=== PATIENT | female | born 2000 | race Caucasian/White ===

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

== ENCOUNTER → 2018-02-19 | Outpatient (REF) | payer OTHER ==
[2018-02-19 23:03] LABS: CHLAMYDIA DNA AMPLIFICATION NEGATIVE (NEGATIVE); GC DNA AMPLIFICATION NEGATIVE (NEGATIVE)
== END ==
LOC: M SFHCLERA 16:38
DX: R30.0 Dysuria (principal); N89.8 Other specified noninflammatory disorders of vagina

== ENCOUNTER → 2018-06-25 | Outpatient (REF) | payer OTHER | LOC: M SFHCLERA 14:57 | PROVIDERS: ATTEND Nurse Practitioner Family | DX: R30.0 Dysuria (principal) ==

== ENCOUNTER → 2018-07-28 | Outpatient (REF) | payer OTHER, SELFPAY ==
[~2018-07-28] MED LIST: BUPR150T5; FLUC150T; METH0.2T53 PO; NAPR-885 PO; PRENTAB55 PO
== END ==
LOC: M SFHCLERA 11:55
PROVIDERS: ATTEND Physician Assistant
DX: N39.0 Urinary tract infection, site not specified (principal)

== ENCOUNTER 2018-08-22 15:12 | Emergency (ER) | payer OTHER, SELFPAY ==
[~2018-08-22] VITALS: Ht 165.1 cm; Wt 95.5 kg
[2018-08-22] MEDS ORDERED: PRENTAB55 PO (15:21)
[2018-08-22 16:18] LABS: BASO # 0.1 10^3/uL (0.0-0.2); BASO % 1.1 % (0.0-1.0); EOS # 0.3 10^3/uL (0.0-0.50); EOS % 4.8 % (0.0-3.0); HEMATOCRIT 37.1 % (36.0-47.0); HEMOGLOBIN 12.5 g/dl (12.0-15.5); LYMPH # 1.4 10^3/uL (1.5-6.5); LYMPH % 25.6 % (24.0-44.0); MEAN CORPUSCULAR HEMOGLOBIN 29.9 pg (27.0-33.0); MEAN CORPUSCULAR HGB CONC 33.7 g/dl (32.0-36.5); MEAN CORPUSCULAR VOLUME 88.8 fl (80.0-96.0); MONO # 0.5 10^3/uL (0.0-0.8); MONO % 9.2 % (0.0-5.0); NEUTROPHILS # 3.2 10^3/uL (1.8-7.7); NEUTROPHILS % 59.1 % (36.0-66.0); PLATELET COUNT, AUTOMATED 272 10^3/uL (150-450); RED BLOOD COUNT 4.18 10^6/uL (4.00-5.40); WHITE BLOOD COUNT 5.4 10^3/uL (4.0-10.0)
[2018-08-22 16:39] LABS: BLOOD UREA NITROGEN 7 MG/DL (7-18); CALCIUM LEVEL 8.9 MG/DL (8.5-10.1); CARBON DIOXIDE LEVEL 25 MEQ/L (21-32); CHLORIDE LEVEL 110 MEQ/L (98-107); CREATININE FOR GFR 0.77 MG/DL (0.55-1.30); GLUCOSE, FASTING 81 MG/DL (70-100); POTASSIUM SERUM 3.9 MEQ/L (3.5-5.1); SODIUM LEVEL 141 MEQ/L (136-145)
[2018-08-22 16:53] LABS: HCG, SERUM QUALITATIVE POSITIVE (NEGATIVE)
[2018-08-22] MEDS ORDERED: ONDANSETRON 4 MG ORAL DISINTEGRATING TAB (Q0162 PER 1MG) PO ONE (17:15)
[2018-08-22 17:53] LABS: HCG, SERUM QUANTITATIVE 10677 MIU/ML
--- NOTE | 2018-08-22 18:25 | REP ---
PELVIC ULTRASOUND: Real-time sonographic evaluation of the pelvis was performed utilizing transabdominal and endovaginal technique. Intrauterine gestational sac contains a fetus with a crown-rump length of 16 mm. This would correspond to an estimated gestational age 8 weeks. However no heart motion is detected. Findings are consistent with intrauterine demise. No subchronic hemorrhage is seen. No maternal adnexal region abnormality is seen. Right ovary demonstrates no torsion. Left ovary is not visualized. Electronically Signed by Ismael Borrero MD 08/22/2018 07:46 P
[2018-08-22 18:47] VITALS: BP 133/63
== END 2018-08-22 18:50 | disposition home or self-care (01) ==
LOC: M ED 15:12
DX: O03.4 Incomplete spontaneous abortion without complication (principal)
CPT/HCPCS: 36415; 76801; 76817; 80048; 81001; 84702; 84703; 85025; 86850; 86900; 86901; 93976; 99284; Q0162

== ENCOUNTER 2018-09-03 23:12 | Emergency (ER) | payer OTHER ==
[~2018-09-03] VITALS: Ht 167.6 cm; Wt 93.6 kg
[~2018-09-03 23:12] MED LIST changes: -BUPR150T5; -FLUC150T; -METH0.2T53 PO; -NAPR-885 PO
[2018-09-03] MEDS ORDERED: FLUC150T (23:17)
[2018-09-03] MEDS ORDERED: NAPR-885 PO (23:17)
[2018-09-04] MEDS ORDERED: KETOROLAC 30 MG/ML VIAL (J1885) IV ONE (00:45)
[2018-09-04] MEDS ORDERED: NS 500 ML IV ONE (00:45)
[2018-09-04 01:52] LABS: BLOOD UREA NITROGEN 11 MG/DL (7-18); CALCIUM LEVEL 8.9 MG/DL (8.5-10.1); CARBON DIOXIDE LEVEL 22 MEQ/L (21-32); CHLORIDE LEVEL 111 MEQ/L (98-107); CREATININE FOR GFR 0.72 MG/DL (0.55-1.30); GLUCOSE, FASTING 90 MG/DL (70-100); HCG, SERUM QUANTITATIVE 1773 MIU/ML; POTASSIUM SERUM 4.1 MEQ/L (3.5-5.1); SODIUM LEVEL 142 MEQ/L (136-145)
[2018-09-04 02:01] LABS: BASO # 0.1 10^3/uL (0.0-0.2); BASO % 0.6 % (0.0-1.0); EOS # 0.4 10^3/uL (0.0-0.50); EOS % 2.9 % (0.0-3.0); HEMATOCRIT 36.1 % (36.0-47.0); HEMOGLOBIN 11.9 g/dl (12.0-15.5); LYMPH % 16.1 % (24.0-44.0); MEAN CORPUSCULAR HEMOGLOBIN 29.2 pg (27.0-33.0); MEAN CORPUSCULAR VOLUME 88.5 fl (80.0-96.0); NEUTROPHILS # 9.1 10^3/uL (1.8-7.7); NEUTROPHILS % 72.2 % (36.0-66.0); PLATELET COUNT, AUTOMATED 315 10^3/uL (150-450); RED BLOOD COUNT 4.08 10^6/uL (4.00-5.40); WHITE BLOOD COUNT 12.6 10^3/uL (4.0-10.0)
--- NOTE | 2018-09-04 03:09 | REPVR ---
EXAM: US First Trimester, Transabdominal EXAM DATE/TIME: 09/04/2018 1:20 AM CLINICAL HISTORY: 18 years old, female; Signs and symptoms; Lmp or gestational age (in weeks): Lmp12; Antepartum complications; Bleeding; ; Patient HX: Confirmed demise 08/22/18, heavy bleeding and cramping began tonight, scheduled for d&c 09/07/18; Additional info: S/P sp ab/bleeding/pain TECHNIQUE: Real-time transabdominal obstetrical ultrasound of the maternal pelvis and a first trimester , less than 14 weeks 0 days, with image documentation. Patient refused transvaginal exam. COMPARISON: No relevant prior studies available. FINDINGS: GESTATION: Gestation: No normal intrauterine gestation sac seen. Amniotic fluid: Sought but not present. MATERNAL: Uterus: Uterus measures 9.4 x 5.4 x 6.8 cm. Endometrial stripe measures 2.1 cm in thickness. Endometrium is heterogeneous and thickened. Cervix: Unremarkable. Right adnexa: Right ovary measures 3.4 x 2.6 x 3.4 cm. Unremarkable. Left adnexa: Left ovary measures 3.4 x 1.7 x 2.3 cm. Unremarkable. Intraperitoneal: No intraperitoneal free fluid. IMPRESSION: No normal intrauterine gestation sac seen. Endometrium is heterogeneous and thickening. Clot versus retained products of conception. Electronically signed by: Marilyn Onofre On 09/04/2018 03:09:08 AM
[2018-09-04 05:06] VITALS: BP 190/59
--- NOTE | 2018-09-05 15:46 | ED PDOC ---
Post-Departure Follow-Up womens geoff eisenberg faxed formal report of 1st trimester us for fu Irasema Ortiz MD Sep 05, 2018 15:45
== END 2018-09-04 05:11 | disposition home or self-care (01) ==
LOC: M ED 23:12
DX: O03.4 Incomplete spontaneous abortion without complication (principal); E66.9 Obesity, unspecified
CPT/HCPCS: 76801; 80048; 81001; 84702; 85025; 86850; 86900; 86901; 93976; 96374; 99284; J1885

== ENCOUNTER 2018-10-01 18:36 | Emergency (ER) | payer OTHER ==
[~2018-10-01] VITALS: Ht 167.6 cm; Wt 84.5 kg
[~2018-10-01 18:36] MED LIST changes: +FLUC150T; +NAPR-885 PO
[2018-10-01] MEDS ORDERED: BUPR150T5 (18:45)
[2018-10-01 20:15] LABS: BASO # 0.1 10^3/uL (0.0-0.2); BASO % 1.2 % (0.0-1.0); EOS # 0.3 10^3/uL (0.0-0.50); EOS % 6.6 % (0.0-3.0); HEMATOCRIT 39.2 % (36.0-47.0); HEMOGLOBIN 12.7 g/dl (12.0-15.5); LYMPH # 1.3 10^3/uL (1.5-6.5); MEAN CORPUSCULAR HEMOGLOBIN 29.1 pg (27.0-33.0); MEAN CORPUSCULAR HGB CONC 32.4 g/dl (32.0-36.5); MEAN CORPUSCULAR VOLUME 89.7 fl (80.0-96.0); MONO # 0.5 10^3/uL (0.0-0.8); MONO % 10.2 % (0.0-5.0); NEUTROPHILS # 2.6 10^3/uL (1.8-7.7); NEUTROPHILS % 54.8 % (36.0-66.0); PLATELET COUNT, AUTOMATED 277 10^3/uL (150-450); RED BLOOD COUNT 4.37 10^6/uL (4.00-5.40); WHITE BLOOD COUNT 4.8 10^3/uL (4.0-10.0)
[2018-10-01 20:40] LABS: BLOOD UREA NITROGEN 9 MG/DL (7-18); CALCIUM LEVEL 9.1 MG/DL (8.5-10.1); CARBON DIOXIDE LEVEL 27 MEQ/L (21-32); CHLORIDE LEVEL 108 MEQ/L (98-107); CREATININE FOR GFR 0.87 MG/DL (0.55-1.30); GLUCOSE, FASTING 50 MG/DL (70-100); SODIUM LEVEL 140 MEQ/L (136-145)
[2018-10-01 20:55] LABS: HCG, SERUM QUALITATIVE POSITIVE (NEGATIVE)
[2018-10-01 22:02] LABS: HCG, SERUM QUANTITATIVE 15 MIU/ML
[2018-10-01] MEDS ORDERED: LIDOCAINE 1% MDV 20ML VIAL IM ONE (23:45)
[2018-10-02 01:32] LABS: CHLAMYDIA DNA AMPLIFICATION NEGATIVE (NEGATIVE); GC DNA AMPLIFICATION NEGATIVE (NEGATIVE)
--- NOTE | 2018-10-02 01:57 | REPVR ---
EXAM: US Pelvis Complete, Transabdominal EXAM DATE/TIME: 10/02/2018 12:22 AM CLINICAL HISTORY: 18 years old, female; Signs and symptoms; Menstruation abnormalities; Excessive menstruation; Other: S/P d&c continued bleeding; Prior surgery; Surgery date: <1 month; Additional info: Vaginal bleeding S/P d+c TECHNIQUE: Imaging protocol: Real-time transabdominal pelvic ultrasound with image documentation. Complete exam. COMPARISON: 1ST TRIMESTER US 09/04/2018 12:53 AM FINDINGS: Uterus/cervix: Heterogeneous endometrium measuring 16 mm. Heterogeneous endometrium measuring 16 mm. Hypervascularity in the endometrium at the fundus of the uterus likely representing retained products of conception. Right adnexa: Right ovary is unremarkable measuring 3.5 x 3.0 x 2.3 cm. Left adnexa: Left ovary is unremarkable measuring 4.7 x 3.4 x 2.9 cm. Free fluid: None. Bladder: Urinary bladder is unremarkable measuring 3.5 x 3.1 x 6.8 cm. IMPRESSION: Heterogeneous endometrium measuring 16 mm. Hypervascularity in the endometrium at the fundus of the uterus likely representing retained products of conception. Electronically signed by: Diana Wyman On 10/02/2018 01:57:09 AM
[2018-10-02] MEDS ORDERED: METH0.2T53 PO (02:16)
[2018-10-02 02:22] VITALS: BP 118/60
== END 2018-10-02 02:21 | disposition home or self-care (01) ==
LOC: M ED 18:36
DX: O03.4 Incomplete spontaneous abortion without complication (principal); F32.9 Major depressive disorder, single episode, unspecified; Z79.899 Other long term (current) drug therapy

== ENCOUNTER 2018-10-16 22:00 | Emergency (ER) | payer OTHER ==
[~2018-10-16] VITALS: Ht 165.1 cm; Wt 84.5 kg
[~2018-10-16 22:00] MED LIST changes: +BUPR150T5; +METH0.2T53 PO
[2018-10-16 22:50] LABS: BASO # 0.1 10^3/uL (0.0-0.2); BASO % 0.9 % (0.0-1.0); EOS # 0.4 10^3/uL (0.0-0.50); EOS % 6.4 % (0.0-3.0); HEMATOCRIT 37.6 % (36.0-47.0); HEMOGLOBIN 12.4 g/dl (12.0-15.5); LYMPH # 1.7 10^3/uL (1.5-6.5); LYMPH % 29.1 % (24.0-44.0); MEAN CORPUSCULAR HEMOGLOBIN 29.4 pg (27.0-33.0); MEAN CORPUSCULAR VOLUME 89.1 fl (80.0-96.0); MONO # 0.5 10^3/uL (0.0-0.8); MONO % 7.8 % (0.0-5.0); NEUTROPHILS # 3.2 10^3/uL (1.8-7.7); NEUTROPHILS % 55.5 % (36.0-66.0); PLATELET COUNT, AUTOMATED 281 10^3/uL (150-450); RED BLOOD COUNT 4.22 10^6/uL (4.00-5.40); WHITE BLOOD COUNT 5.7 10^3/uL (4.0-10.0)
[2018-10-16 23:10] LABS: ALBUMIN 3.8 GM/DL (3.2-5.2); ALT/SGPT 14 U/L (12-78); BILIRUBIN,DIRECT < 0.1 MG/DL (0.0-0.2); BILIRUBIN,TOTAL 0.1 MG/DL (0.2-1.0); BLOOD UREA NITROGEN 7 MG/DL (7-18); CALCIUM LEVEL 8.6 MG/DL (8.5-10.1); CARBON DIOXIDE LEVEL 30 MEQ/L (21-32); CHLORIDE LEVEL 107 MEQ/L (98-107); CREATININE FOR GFR 0.86 MG/DL (0.55-1.30); GLUCOSE, FASTING 92 MG/DL (70-100); HCG, SERUM QUANTITATIVE 4 MIU/ML; POTASSIUM SERUM 4.1 MEQ/L (3.5-5.1); SODIUM LEVEL 141 MEQ/L (136-145); TOTAL PROTEIN 7.3 GM/DL (6.4-8.2)
--- NOTE | 2018-10-17 01:26 | REPVR ---
EXAM: US Pelvis Complete, Transabdominal EXAM DATE/TIME: 10/16/2018 11:41 PM CLINICAL HISTORY: 18 years old, female; Signs and symptoms; Menstruation abnormalities; Excessive menstruation; Other: S/P miscarriage/ d&c; Prior surgery; Surgery date: 1-6 months; Additional info: Continued bleeding p d TECHNIQUE: Imaging protocol: Real-time transabdominal pelvic ultrasound with image documentation. Complete exam. COMPARISON: US PELVIC NON-OB COMPLETE 10/01/2018 11:59 PM FINDINGS: Uterus/cervix: Uterus measures 9.0 x 3.7 x 4.8 cm. Endometrial stripe measures 8.5 mm. Ill-defined endometrium with increased flow in the fundus measuring 1.3 x 1.4 x 1.5 cm may represent retained products of conception. Right adnexa: Right ovary is unremarkable measuring 4.0 x 2.8 x 2.3 cm. Left adnexa: Left ovary is unremarkable measuring 4.5 x 3.4 x 3.2 cm. Free fluid: None. Bladder: Urinary bladder is unremarkable impression 1.6 x 1.2 x 3.3 cm. IMPRESSION: Ill-defined endometrium with increased flow in the fundus measuring 1.3 x 1.4 x 1.5 cm may represent retained products of conception. Electronically signed by: Diana Wyman On 10/17/2018 01:25:50 AM
[2018-10-17 01:58] VITALS: BP 115/76
--- NOTE | 2018-10-18 13:11 | ED PDOC ---
Post-Departure Follow-Up dr almanzar faxed formal report of pelvic us for fu Irasema Ortiz MD Oct 18, 2018 13:11
== END 2018-10-17 02:00 | disposition home or self-care (01) ==
LOC: M ED 22:00
DX: O02.1 Missed abortion (principal); F33.9 Major depressive disorder, recurrent, unspecified; Z79.899 Other long term (current) drug therapy

== ENCOUNTER 2018-12-02 22:12 | Emergency (ER) | payer OTHER ==
[~2018-12-02] VITALS: Ht 165.1 cm; Wt 84.5 kg
[2018-12-02] MEDS ORDERED: ACETAMINOPHEN 325 MG TAB PO ONE (23:30)
[2018-12-02 23:34] LABS: BASO # 0.1 10^3/uL (0.0-0.2); BASO % 0.8 % (0.0-1.0); EOS # 0.3 10^3/uL (0.0-0.50); EOS % 4.3 % (0.0-3.0); HEMATOCRIT 36.7 % (36.0-47.0); HEMOGLOBIN 12.1 g/dl (12.0-15.5); LYMPH # 2.2 10^3/uL (1.5-6.5); LYMPH % 28.1 % (24.0-44.0); MEAN CORPUSCULAR HEMOGLOBIN 29.7 pg (27.0-33.0); MONO # 0.8 10^3/uL (0.0-0.8); MONO % 9.5 % (0.0-5.0); NEUTROPHILS # 4.5 10^3/uL (1.8-7.7); PLATELET COUNT, AUTOMATED 244 10^3/uL (150-450); RED BLOOD COUNT 4.08 10^6/uL (4.00-5.40); WHITE BLOOD COUNT 7.9 10^3/uL (4.0-10.0)
[2018-12-02 23:42] LABS: BLOOD UREA NITROGEN 8 MG/DL (7-18); CALCIUM LEVEL 8.3 MG/DL (8.5-10.1); CARBON DIOXIDE LEVEL 27 MEQ/L (21-32); CHLORIDE LEVEL 109 MEQ/L (98-107); CREATININE FOR GFR 0.76 MG/DL (0.55-1.30); GLUCOSE, FASTING 79 MG/DL (70-100); SODIUM LEVEL 144 MEQ/L (136-145)
[2018-12-03] MEDS ORDERED: CLOTCRE3 TOP (00:56)
[2018-12-03] MEDS ORDERED: CLOTRIMAZOLE 1% VAG CR 45 GM TOP STA (00:58)
[2018-12-03 01:00] VITALS: BP 129/62
--- NOTE | 2018-12-03 01:33 | REPVR ---
EXAM: US First Trimester, Transabdominal EXAM DATE/TIME: 12/02/2018 12:04 AM CLINICAL HISTORY: 18 years old, female; Pain and signs and symptoms; Antepartum complications; Bleeding; complicated by abdominal or pelvic pain; Lower; First trimester; Gestational age or lmp: ? Hcg 128; ; Prior surgery; Surgery date: 1-6 months; Surgery type: D&c; Patient HX: Miscarriage in August; Additional info: +hcg, cramping, bleeding TECHNIQUE: Imaging protocol: Real-time transabdominal obstetrical ultrasound of the maternal pelvis and a first trimester , less than 14 weeks 0 days, with image documentation. COMPARISON: No relevant prior studies available. FINDINGS: GESTATION: Gestation: No intrauterine gestational sac. MATERNAL: Uterus: The uterus measures 9.5 cm in its cephalocaudad dimension and 4.6 x 6.3 cm in its AP and lateral dimensions. The endometrium measures 18 mm. No intrauterine gestational sac is seen. Cervix: Unremarkable. Right adnexa: The right ovary measures 4.4 x 4.0 x 3.1 cm and demonstrates a simple appearing cyst measuring 2.3 x 2.3 x 1.5 cm. There is right ovarian blood flow. Left adnexa: The left ovary measures 3.2 x 2.6 x 2.2 cm and demonstrates normal blood flow. Intraperitoneal: No intraperitoneal free fluid. IMPRESSION: 1. Thickened endometrium measuring 18 mm. No intrauterine gestational sac is seen. Findings may reflect recent spontaneous AB or possibly early intrauterine gestation. Ectopic with decidual reaction is not excluded. Serial beta hCG levels may be of benefit for further evaluation. 2. Right ovarian cyst measuring 2.3 x 2.3 x 1.5 cm. Electronically signed by: Mitul Wilcox On 12/03/2018 01:33:05 AM
--- NOTE | 2018-12-04 10:38 | ED PDOC ---
Post-Departure Follow-Up certified letter sent to pt regarding formal reading of pelvic us. This pt must have an ob-space operations officer. not documented. please obtain name and fax report to job lithographer Irasema Ortiz MD Dec 04, 2018 10:38
== END 2018-12-03 01:05 | disposition home or self-care (01) ==
LOC: M ED 22:12
DX: O23.599 Infection of other part of genital tract in pregnancy, unspecified trimester (principal); Z3A.00 Weeks of gestation of pregnancy not specified; O34.80 Maternal care for other abnormalities of pelvic organs, unspecified trimester

== ENCOUNTER → 2018-12-04 | Outpatient (REF) | payer OTHER ==
[~2018-12-04] MED LIST changes: +CLOTCRE3 TOP
[2018-12-04 17:59] LABS: BASO # 0.1 10^3/uL (0.0-0.2); BASO % 1.2 % (0.0-1.0); EOS # 0.3 10^3/uL (0.0-0.50); EOS % 4.8 % (0.0-3.0); HCG, SERUM QUANTITATIVE 336 MIU/ML; HEMATOCRIT 40.2 % (36.0-47.0); HEMOGLOBIN 13.1 g/dl (12.0-15.5); LYMPH # 1.6 10^3/uL (1.5-6.5); LYMPH % 26.9 % (24.0-44.0); MEAN CORPUSCULAR HEMOGLOBIN 28.8 pg (27.0-33.0); MEAN CORPUSCULAR HGB CONC 32.6 g/dl (32.0-36.5); MEAN CORPUSCULAR VOLUME 88.4 fl (80.0-96.0); MONO # 0.6 10^3/uL (0.0-0.8); MONO % 10.7 % (0.0-5.0); NEUTROPHILS # 3.3 10^3/uL (1.8-7.7); NEUTROPHILS % 56.2 % (36.0-66.0); PLATELET COUNT, AUTOMATED 284 10^3/uL (150-450); RED BLOOD COUNT 4.55 10^6/uL (4.00-5.40); WHITE BLOOD COUNT 5.8 10^3/uL (4.0-10.0)
[2018-12-05 10:53] LABS: RUBELLA IgG QUALITATIVE IMMUNE (IMMUNE)
[2018-12-05 11:22] LABS: HEPATITIS C VIRUS ABY INDEX < 0.0 INDEX (<0.8); HIV 1&2 SCREEN CENTAUR NEGATIVE (NEGATIVE)
== END ==
LOC: M LAB REF 16:45
PROVIDERS: ATTEND Obstetrics & Gynecology
DX: O36.80X0 Pregnancy with inconclusive fetal viability, not applicable or unspecified (principal); Z32.01 Encounter for pregnancy test, result positive

== ENCOUNTER → 2018-12-14 | Outpatient (REF) | payer OTHER | LOC: M LAB REF 15:54 | PROVIDERS: ATTEND Obstetrics & Gynecology | DX: O02.81 Inappropriate change in quantitative human chorionic gonadotropin (hCG) in early pregnancy (principal) ==

== ENCOUNTER → 2019-01-08 | Outpatient (REF) | payer OTHER ==
[~2019-01-08] MED LIST changes: +PRENTAB9 PO
== END ==
LOC: M LAB REF 16:52
PROVIDERS: ATTEND Obstetrics & Gynecology
DX: Z34.01 Encounter for supervision of normal first pregnancy, first trimester (principal)

== ENCOUNTER → 2019-02-06 | Outpatient (REF) | payer OTHER | LOC: M LAB REF 17:00 | PROVIDERS: ATTEND Obstetrics & Gynecology | DX: R30.0 Dysuria (principal) ==

== ENCOUNTER → 2019-04-11 | Outpatient (REF) | payer OTHER ==
[~2019-04-11] MED LIST changes: -PRENTAB9 PO
[2019-04-11 22:04] LABS: CHLAMYDIA DNA AMPLIFICATION NEGATIVE (NEGATIVE); GC DNA AMPLIFICATION NEGATIVE (NEGATIVE)
== END ==
LOC: M SFHCLERA 15:46
PROVIDERS: ATTEND Nurse Practitioner Family
DX: J02.9 Acute pharyngitis, unspecified (principal)

== ENCOUNTER 2019-04-26 21:30 | Outpatient (CLI) | payer OTHER ==
[~2019-04-26] VITALS: Ht 167.6 cm; Wt 97.2 kg
[2019-04-26] MEDS ORDERED: PRENTAB9 PO (22:05)
--- NOTE | 2019-04-26 23:00 | IPNPDOC ---
Text Note Date of Service The patient was seen on 04/26/19. NOTE Outpatient 18 yo ADDISON 08/12/2019. Pt of [facility]. Presents @ 24w2d with complaints of falling downstairs yesterday afternoon. Denies LOF or bleeding. Reports appropriate movement. Abdomen soft, nontender Reassuring status for gestation Sono shows adequate fluid DONTRELL 13.0 without evidence previa or abruption. Discharged home. Reivewed with pt need to contact provider with future falls or concerns. Keep next appt VS,Fishbone, I+O VS, Fishbone, I+O Vital Signs Date Time Temp Pulse Resp B/P (MAP) Pulse Ox O2 Delivery O2 Flow Rate FiO2 04/26/19 21:56 98.5 Carmina Cota CNM Apr 26, 2019 23:00
--- NOTE | 2019-04-26 23:13 | REPVR ---
PROCEDURE INFORMATION: Exam: US , Limited Exam date and time: 04/26/2019 10:49 PM Clinical history: 18 years old, female; Injury or trauma; Fall; Late effect from previous injury; Blunt trauma; Other: Buttocks; ; Additional info: Fall downstairs, 24 wks TECHNIQUE: Imaging protocol: Real-time ultrasound of the maternal uterus with image documentation. Exam focused on the clinical indication. COMPARISON: US PELVIC NON-OB COMPLETE 10/16/2018 11:19 PM FINDINGS: GESTATION: Gestation: Single intrauterine gestation. Biometric measurements not obtained and structural survey not performed. Heart rate: heart rate 162 beats per minute. Placenta: Postero-fundal placenta. Amniotic fluid: Normal amniotic fluid volume DONTRELL 13 cm. MATERNAL: Cervix: Cervix measures 4 cm without funneling or bulging membranes. IMPRESSION: Single intrauterine gestation as described above. Normal amniotic fluid volume. Normal appearance of the cervix. Electronically signed by: Aron Jones On 04/26/2019 23:12:46 PM
== END 2019-04-26 23:10 | disposition home or self-care (01) ==
LOC: M LDO 21:30
PROVIDERS: ATTEND Advanced Practice Midwife
DX: O99.89 Other specified diseases and conditions complicating pregnancy, childbirth and the puerperium (principal); Z3A.24 24 weeks gestation of pregnancy; W10.9XXA Fall (on) (from) unspecified stairs and steps, initial encounter; Y92.9 Unspecified place or not applicable
CPT/HCPCS: 76815; G0378; G0463

== ENCOUNTER → 2019-05-16 | Outpatient (CLI) | payer OTHER ==
[~2019-05-16] MED LIST changes: +PRENTAB9 PO
[2019-05-16 10:51] LABS: HEMATOCRIT 34.5 % (36.0-47.0); HEMOGLOBIN 11.1 g/dl (12.0-15.5); MEAN CORPUSCULAR HEMOGLOBIN 30.4 pg (27.0-33.0); MEAN CORPUSCULAR HGB CONC 32.2 g/dl (32.0-36.5); MEAN CORPUSCULAR VOLUME 94.5 fl (80.0-96.0); PLATELET COUNT, AUTOMATED 293 10^3/uL (150-450); RED BLOOD COUNT 3.65 10^6/uL (4.00-5.40); WHITE BLOOD COUNT 10.9 10^3/uL (4.0-10.0)
== END ==
LOC: M LAB 09:21
PROVIDERS: ATTEND Obstetrics & Gynecology
DX: Z34.82 Encounter for supervision of other normal pregnancy, second trimester (principal)

== ENCOUNTER → 2019-07-11 | Outpatient (REF) | payer OTHER | LOC: M LAB REF 12:30 | PROVIDERS: ATTEND Obstetrics & Gynecology | DX: Z36.85 Encounter for antenatal screening for Streptococcus B (principal) ==

== ENCOUNTER 2019-08-02 06:01 | Outpatient (CLI) | payer OTHER ==
[~2019-08-02] VITALS: Ht 167.6 cm; Wt 110.6 kg
[2019-08-02 06:20] VITALS: BP 126/67
[2019-08-02 07:48] VITALS: BP 129/60
[2019-08-02 09:06] VITALS: BP 107/58
== END 2019-08-02 09:45 | disposition home or self-care (01) ==
LOC: M LDO 06:01
PROVIDERS: ATTEND Obstetrics & Gynecology
DX: O47.1 False labor at or after 37 completed weeks of gestation (principal); Z3A.38 38 weeks gestation of pregnancy
CPT/HCPCS: 59025; G0378; G0463

== ENCOUNTER 2019-08-07 20:49 | Inpatient (IN) | payer OTHER ==
[~2019-08-07] VITALS: Ht 167.6 cm; Wt 112.5 kg
[2019-08-07 21:10] VITALS: BP 136/72
[2019-08-07] MEDS ORDERED: LACTATED RINGER'S 1000 ML IV STA (21:41)
[2019-08-07 21:48] VITALS: BP 129/68
[2019-08-07 23:25] LABS: HEMATOCRIT 34.3 % (36.0-47.0); HEMOGLOBIN 10.8 g/dl (12.0-15.5); MEAN CORPUSCULAR HGB CONC 31.5 g/dl (32.0-36.5); MEAN CORPUSCULAR VOLUME 88.9 fl (80.0-96.0); PLATELET COUNT, AUTOMATED 330 10^3/uL (150-450); RED BLOOD COUNT 3.86 10^6/uL (4.00-5.40); WHITE BLOOD COUNT 11.2 10^3/uL (4.0-10.0)
[2019-08-07 23:37] VITALS: BP 131/81
[2019-08-08] VITALS (24 sets, daily range): BP systolic 117–174; BP diastolic 55–123
[2019-08-08] MEDS: LR 1,000 ML IV SCH ×4 (07:32→21:41)
[2019-08-08] MEDS ORDERED: miSOPROStol 50 MCG 1/2 TAB (S0191) PO ONE (08:00)
[2019-08-08] MEDS ORDERED: AMPICILLIN SOD 2 GM in D5W MINI-BAG PLUS 100 ML IV ONE (08:00)
[2019-08-08] MEDS: AMPICILLIN SOD 1 GM in D5W 50 ML IV SCH ×3 (11:58→20:21)
[2019-08-08] MEDS: miSOPROStol 50 MCG 1/2 TAB (S0191) PO SCH ×2 (13:00→17:25)
--- NOTE | 2019-08-08 17:51 | HPE ---
DATE OF ADMISSION: 08/07/2019 Ryanne is a 18-year-old female 2, para 0-0-1-0 with an estimated date of confinement (EDC) of 08/12/2019, estimated gestational age (EGA) 39-2/7 weeks gestation who is being admitted for elective induction. Upon admission, no bleeding or leakage of fluid, good movement. Her record reviewed which was essentially unremarkable. She initiated care during her first trimester. LABORATORY DATA: Blood type is B+, rubella immune, hepatitis negative, HIV negative, GC and chlamydia negative, one-hour sugar testing was within normal limits. Her GBS is positive. PAST MEDICAL HISTORY: Significant for depression and anxiety. PAST SURGICAL HISTORY: T tonsillectomy in a dilation and curettage (D C) times one. SOCIAL HISTORY: She is . Denies any alcohol, drug or cigarette smoking. REVIEW OF SYSTEMS: Unremarkable. FAMILY HISTORY: Significant for bipolar disorder in the father's side. MEDICATIONS: vitamin. ALLERGIES: No known drug allergy. PHYSICAL EXAMINATION: Obese female in no acute distress. ABDOMEN: Soft, nontender, nondistended. EXTREMITIES: No clubbing, cyanosis or edema. VAGINAL EXAMINATION: Fingertip to 1 cm dilated, 70% effaced, fetus at -3 station in a vertex position. Tracing reviewed, category 1 tracing with irregular contractions. ASSESSMENT: 1. Intrauterine at 39-2/7 weeks gestation. 2. Group B Streptococcus (GBS) positive. PLAN: Admit to labor and delivery. Induction process discussed. We will proceed with a Cytotec induction followed by potential artificial rupture of membranes and Pitocin. Pain management also discussed. The patient opted for an epidural. We will continue to monitor. Anticipate delivery.
[2019-08-08] MEDS ORDERED: OXYTOCIN DRIP 30 UNITS in IV 1 EA IV SCH (20:15)
[2019-08-08] MEDS ORDERED: FENTANYL 2MCG/ML ROPIVACAINE 0.2% IN 0.9% NACL 100ML IVBAG As Ordered ONE (20:15)
[2019-08-08] MEDS ORDERED: FENTANYL/ROPIVACAINE/NACL BAG 100 ML EPIDURAL SCH (22:45)
[2019-08-08] MEDS ORDERED: NALOXONE INJ 0.4 MG/1 ML VIAL (J2310) IV PRN (22:45)
[2019-08-08] MEDS ORDERED: ePHEDrine SULFATE 25 MG/5 ML(5MG/ML) SYRINGE IV PRN (22:45)
[2019-08-08] MEDS ORDERED: EPIDURAL/PCA KEYS XX PRN (22:45)
[2019-08-08] MEDS ORDERED: ONDANSETRON 4MG/2ML VIAL (J2405) IV PRN (22:45)
[2019-08-08] MEDS ORDERED: EPIDURAL COMMENT XX SCH (22:45)
[2019-08-08] MEDS ORDERED: diphenhydrAMINE INJ 50MG/ML VIAL (J1200) IV PRN (22:45)
[2019-08-08] MEDS ORDERED: LACTATED RINGER'S 1000 ML IV PRN (22:45)
[2019-08-08] MEDS ORDERED: REFRIGERATOR IV KEYS XX PRN (22:45)
[2019-08-09] VITALS (15 sets, daily range): BP systolic 110–156; BP diastolic 55–72
[2019-08-09] MEDS: AMPICILLIN SOD 1 GM in D5W 50 ML IV SCH (00:17)
[2019-08-09] MEDS ORDERED: ceFAZolin 2 GM/D5W 50 ML IV BAG (J0690 PER 500MG) As Ordered ONE (03:18)
[2019-08-09] MEDS ORDERED: BICITRA 30ML SOLN UDC As Ordered ONE (03:18)
[2019-08-09] MEDS ORDERED: BICITRA 30ML SOLN UDC PO ONE (03:30)
[2019-08-09] MEDS ORDERED: ceFAZolin SOD 2 GM in IV 1 EA IV ONE (03:30)
[2019-08-09] MEDS ORDERED: LIDOCAINE 2% W/EPIN INJ 20ML **PRES FREE As Ordered ONE (03:30)
[2019-08-09] MEDS ORDERED: OXYTOCIN 30 UNITS IN 0.9% NaCl 500ML IV BAG (J2590) As Ordered ONE (03:31)
[2019-08-09] MEDS ORDERED: OXYTOCIN DRIP 30 UNITS in IV 1 EA IV SCH (03:32)
[2019-08-09] MEDS ORDERED: RHOGAM 300 MCG (1500 IU) INJ (J2790) IM SCH (03:45)
[2019-08-09] MEDS ORDERED: MOM 30ML SUSPENSION UDC PO PRN (03:45)
[2019-08-09] MEDS ORDERED: MEASLES,MUMPS,RUBELLA VACCINE INJ (MMR-II) (90707) SC SCH (03:45)
[2019-08-09] MEDS ORDERED: ANUSOL HC CREAM 30GM TOP PRN (03:45)
[2019-08-09] MEDS ORDERED: PHENYLephrine HCL 500 MCG/5 ML (100MCG/ML) SYRINGE (J2370) As Ordered ONE (04:00)
[2019-08-09] MEDS ORDERED: MORPHINE PRES-FREE INJ 10 MG/10 ML VIAL (J2274) As Ordered ONE (04:00)
[2019-08-09] MEDS ORDERED: KETOROLAC 60 MG/2 ML VIAL (J1885) As Ordered ONE (04:00)
[2019-08-09] MEDS ORDERED: ONDANSETRON 4MG/2ML VIAL (J2405) As Ordered ONE (04:00)
[2019-08-09] MEDS ORDERED: fentaNYL 100 MCG/2 ML INJECTION (J3010) As Ordered ONE (04:03)
[2019-08-09] MEDS ORDERED: MIDAZOLAM INJ 2 MG/2 ML VIAL (J2250) As Ordered ONE (04:03)
[2019-08-09] MEDS ORDERED: MEPERIDINE 50 MG/ML 1ML VIAL (J2175) As Ordered ONE (04:06)
[2019-08-09] MEDS ORDERED: diphenhydrAMINE INJ 50MG/ML VIAL (J1200) IV PRN (04:15)
[2019-08-09] MEDS ORDERED: NALOXONE INJ 0.4 MG/1 ML VIAL (J2310) IV PRN ×2 (04:15)
[2019-08-09] MEDS ORDERED: NALBUPHINE HCL 10 MG/ML AMP (J2300) IV PRN (04:15)
[2019-08-09] MEDS ORDERED: METOCLOPRAMIDE INJ 10MG/2ML VIAL (J2765) IV PRN (04:15)
[2019-08-09] MEDS ORDERED: ONDANSETRON 4MG/2ML VIAL (J2405) IV PRN ×2 (04:15→05:00)
[2019-08-09 04:31] LABS: CORD GAS ABE A -6.3; CORD GAS ABE V -7.4; CORD GAS HCO3 A 22.7 MEQ/L; CORD GAS HCO3 V 18.9 MEQ/L; CORD GAS O2 SAT A 24.8 %; CORD GAS O2 SAT V 43.7 %; CORD GAS PCO2 A 58.8 mmHg; CORD GAS PCO2 V 41.3 mmHg; CORD GAS PH A 7.204 UNITS; CORD GAS PH V 7.279 UNITS; CORD GAS PO2 A 15.6 mmHg; CORD GAS PO2 V 21.3 mmHg; CORD GAS SBC A 17.6 MEQ/L; CORD GAS SBC V 17.3 MEQ/L; CORD GAS TCO2 A 24.5 MEQ/L; CORD GAS TCO2 V 20.2 MEQ/L
[2019-08-09] MEDS ORDERED: oxyCODONE 5MG TAB PO PRN (05:00)
[2019-08-09] MEDS ORDERED: fentaNYL 100 MCG/2 ML INJECTION (J3010) IV PRN (05:00)
[2019-08-09] MEDS: DOCUSATE SODIUM 100 MG CAP PO SCH ×2 (08:44→20:10)
[2019-08-09] MEDS: PRENATAL VITAMINS CHEWABLE TABLET PO SCH (08:45)
[2019-08-09] MEDS: IBUPROFEN 800 MG TAB PO PRN (13:10)
[2019-08-09 14:46] LABS: HEMATOCRIT 26.9 % (36.0-47.0); MEAN CORPUSCULAR HEMOGLOBIN 28.6 pg (27.0-33.0); MEAN CORPUSCULAR VOLUME 89.4 fl (80.0-96.0); PLATELET COUNT, AUTOMATED 239 10^3/uL (150-450); RED BLOOD COUNT 3.01 10^6/uL (4.00-5.40)
[2019-08-09 14:49] LABS: HEMOGLOBIN 8.6 g/dl (12.0-15.5)
[2019-08-09 15:10] LABS: ALT/SGPT 8 U/L (12-78); BILIRUBIN,TOTAL 0.3 MG/DL (0.2-1.0); CREATININE FOR GFR 0.68 MG/DL (0.55-1.30); GLOMERULAR FILTRATION RATE > 60.0 (>60); LDH LACTATE DEHYDROGENASE 231 U/L (84-246); URIC ACID 5.3 MG/DL (2.6-6.0)
[2019-08-09] MEDS: PERCOCET 5MG/325MG TAB PO PRN (20:34)
[2019-08-10] MEDS: IBUPROFEN 800 MG TAB PO PRN (01:47)
[2019-08-10 02:00] VITALS: BP 115/70
[2019-08-10 06:00] VITALS: BP 116/56
[2019-08-10 07:53] LABS: HEMATOCRIT 27.9 % (36.0-47.0); HEMOGLOBIN 8.8 g/dl (12.0-15.5); MEAN CORPUSCULAR HEMOGLOBIN 27.8 pg (27.0-33.0); MEAN CORPUSCULAR HGB CONC 31.5 g/dl (32.0-36.5); MEAN CORPUSCULAR VOLUME 88.3 fl (80.0-96.0); PLATELET COUNT, AUTOMATED 239 10^3/uL (150-450); RED BLOOD COUNT 3.16 10^6/uL (4.00-5.40); WHITE BLOOD COUNT 11.3 10^3/uL (4.0-10.0)
[2019-08-10] MEDS: DOCUSATE SODIUM 100 MG CAP PO SCH ×2 (08:39→21:12)
[2019-08-10] MEDS: PRENATAL VITAMINS CHEWABLE TABLET PO SCH (08:39)
[2019-08-10] MEDS: PERCOCET 5MG/325MG TAB PO PRN ×2 (08:40→15:25)
[2019-08-10 10:00] VITALS: BP 106/53
[2019-08-10 14:00] VITALS: BP 120/69
[2019-08-10 18:00] VITALS: BP 115/63
[2019-08-10 22:35] VITALS: BP 124/72
[2019-08-11] MEDS: PERCOCET 5MG/325MG TAB PO PRN ×2 (01:10→08:10)
[2019-08-11 02:15] VITALS: BP 122/57
[2019-08-11 06:00] VITALS: BP 135/65
[2019-08-11] MEDS: PRENATAL VITAMINS CHEWABLE TABLET PO SCH (09:00)
[2019-08-11] MEDS: DOCUSATE SODIUM 100 MG CAP PO SCH (09:00)
[2019-08-11] MEDS ORDERED: PERCOCET PO (10:22)
[2019-08-11] MEDS ORDERED: DOCU100C16 PO (10:22)
[2019-08-11] MEDS ORDERED: IBUP80TA PO (10:22)
--- NOTE | 2019-08-11 15:18 | RO ---
DATE OF PROCEDURE: 08/09/2019 Ryanne goldberg a 19-year-old female 1, para 0 was admitted on 08/07/2019 for an induction. She underwent three Cytotec followed by artificial rupture of membrane with meconium-stained fluid. After Pitocin augmentation, she progressed to fully dilated, had arrest of descent with significant scalp molding and vaginal edema. At this point, a decision was made to proceed with primary section. PREOPERATIVE DIAGNOSES: 1. Term . 2. Arrest of descent. 3. Meconium-stained fluid. POSTOPERATIVE DIAGNOSIS: 1. Term . 2. Arrest of descent. 3. Meconium-stained fluid. 4. Nuchal cord times one. PROCEDURE: Primary low transverse section via Pfannenstiel incision. SURGEON: Dr. Clemente Martinez. ANESTHESIA: Epidural. COMPLICATIONS: None. ESTIMATED BLOOD LOSS: 600 mL. FINDINGS: Live male infant in occiput transverse position with nuchal cord times one. Apgar8 and 10, weight 7 pounds 14 ounces. Normal-appearing tubes and ovaries. Normal placenta. DESCRIPTION OF PROCEDURE: After obtaining informed consent, the patient was taken to the operating room where epidural anesthetic was found to be adequate. She was then draped and prepped usual sterile fashion in the supine position. At this point a Pfannenstiel incision was made. This was carried down to the fascia. Fascia was incised in midline fashion and carried through laterally. Superior aspect of the fascia then grasped with two Pratibha clamps, tented off and dissected off the rectus muscles sharply. The inferior aspect was dissected off in a similar fashion. Rectus muscles midline fashion. Perineum identified. Peritoneal cavity entered bluntly. Superior and inferior dissection of the peritoneum was then done with good visualization of the bladder. At this point a Mobius skin retractor was placed and a low-transverse uterine incision was made. Infant was delivered in atraumatic fashion. Nose and mouth bulb suctioned. Cord doubly clamped and cut. The was handed to the awaiting warmer. Cord blood and cord gas were sent. Placenta removed manually. Uterus cleared of all clot and debris and the uterine incision was then repaired in two separate layers of 0 Vicryl sutures. All superficial bleeders coagulated. Pelvis copiously irrigated with normal saline and suctioned out. Attention turned to the peritoneum, which was closed in running fashion using #2-0 Vicryl. Fascia closed in two separate segment of 0 Vicryl sutures. All superficial bleeders coagulated and the skin was reapproximated in subcuticular fashion using #3-0 Vicryl on a Kane. Steri-Strips placed. The patient tolerated procedure well. She was then transferred to recovery room in stable condition.
== END 2019-08-11 13:10 | disposition home or self-care (01) | DRG 773 ==
LOC: M LDI 20:49 → M OBS 08-09 06:15
PROVIDERS: ADMIT Obstetrics & Gynecology; ATTEND Obstetrics & Gynecology
PROC: 3E0P7GC Introduction of Other Therapeutic Substance into Female Reproductive, Via Natural or Artificial Opening (ICD-10-PCS; 2019-08-08)
PROC: 10907ZC Drainage of Amniotic Fluid, Therapeutic from Products of Conception, Via Natural or Artificial Opening (ICD-10-PCS; 2019-08-09)
PROC: 10D00Z1 Extraction of Products of Conception, Low, Open Approach (ICD-10-PCS; principal; 2019-08-09 04:44)
DX: O99.214 Obesity complicating childbirth (principal); Z3A.39 39 weeks gestation of pregnancy; Z37.0 Single live birth; O99.824 Streptococcus B carrier state complicating childbirth; E66.9 Obesity, unspecified; O32.4XX0 Maternal care for high head at term, not applicable or unspecified; O77.0 Labor and delivery complicated by meconium in amniotic fluid; O69.1XX0 Labor and delivery complicated by cord around neck, with compression, not applicable or unspecified

== ENCOUNTER → 2019-09-30 | Outpatient (REF) | payer OTHER ==
[~2019-09-30] MED LIST changes: +DOCU100C16 PO; +IBUP80TA PO; +PERCOCET PO
== END ==
LOC: M LAB REF 16:52
PROVIDERS: ATTEND Family Medicine
DX: N39.0 Urinary tract infection, site not specified (principal)

== ENCOUNTER → 2019-12-03 | Outpatient (REF) | payer OTHER | LOC: M LAB REF 16:57 | PROVIDERS: ATTEND Physician Assistant | DX: N39.0 Urinary tract infection, site not specified (principal) ==

== ENCOUNTER → 2019-12-13 | Outpatient (REF) | payer OTHER | LOC: M LAB REF 15:56 | PROVIDERS: ATTEND Family Medicine | DX: N39.0 Urinary tract infection, site not specified (principal) ==

== ENCOUNTER → 2020-02-05 | Outpatient (REF) | payer OTHER | LOC: M LAB REF 07:30 | PROVIDERS: ATTEND Family Medicine | DX: R30.0 Dysuria (principal) ==

== ENCOUNTER → 2020-05-28 | Outpatient (REF) | payer OTHER ==
[~2020-05-28] MED LIST changes: +KEFL500C17 PO
== END ==
LOC: M LAB REF 16:54
PROVIDERS: ATTEND Physician Assistant
DX: N76.0 Acute vaginitis (principal)

== ENCOUNTER 2020-05-29 22:53 | Emergency (ER) | payer OTHER ==
[~2020-05-29] VITALS: Ht 167.6 cm; Wt 92.1 kg
[~2020-05-29 22:53] MED LIST changes: -KEFL500C17 PO
[2020-05-29 22:55] VITALS: BP 129/60
[2020-05-30] MEDS ORDERED: CEPHALEXIN 500 MG CAP PO ONE (00:30)
[2020-05-30] MEDS ORDERED: KEFL500C17 PO (00:31)
== END 2020-05-30 00:54 | disposition home or self-care (01) ==
LOC: M ED 22:53
DX: L03.031 Cellulitis of right toe (principal)

== ENCOUNTER → 2020-07-06 | Outpatient (REF) | payer OTHER ==
[~2020-07-06] MED LIST changes: +KEFL500C17 PO
== END ==
LOC: M LAB REF 18:30
PROVIDERS: ATTEND Physician Assistant Medical
DX: Z11.59 Encounter for screening for other viral diseases (principal)

== ENCOUNTER → 2020-07-20 | Outpatient (REF) | payer OTHER | LOC: M LAB REF 17:02 | PROVIDERS: ATTEND Physician Assistant | DX: N39.0 Urinary tract infection, site not specified (principal) ==

== ENCOUNTER → 2020-08-06 | Outpatient (REF) | payer OTHER | LOC: M LAB REF 16:40 | PROVIDERS: ATTEND Family Medicine | DX: N76.0 Acute vaginitis (principal) ==

== ENCOUNTER 2020-08-14 17:53 | Emergency (ER) | payer OTHER ==
[~2020-08-14] VITALS: Ht 167.6 cm; Wt 89.1 kg
--- OUTSIDE RECORDS SUMMARY | 2020-08-14 17:57 | CCD | Continuity of Care Document ---
Author Author Chalo ARMSTRONG D.O. Organization Unknown Address [address] [place] [address] Phone [phone] Care Team Providers Care Financial Foundations Associate Name Role Phone Valentina Armstrong D.O. AUTM [phone] Ismael HANNON AUTM [phone] Moe Gates M.D. AUTM [phone] Luis Riley AUTM [phone] [facility] AUTM Problems Description No Information Available Social History Type Date Description Comments Sex Unknown ETOH Use Never used alcohol Tobacco Use Start: Unknown Patient has never smoked Recreational Drug Use Never Used Drugs Smoking Status Reviewed: 08/06/20 Patient has never smoked Exercise Type/Frequency Cardio every we ek Sun Exposure Uses sunscreen Seat Belt/Car Seat Always uses seat belt Allergies, Adverse Reactions, Alerts Description No Known Drug Allergies Medications Active Medications SIG Qnty Indications Ordering Provide r Date Mupirocin 2% Ointment apply to irritated area on the vaginal tissue twice daily until resolved 22gm N76.0 Valentina Hodge D.O. 08/06/2020 Naproxen 500mg Tablets take one tab with food twice a day 60tabs G50.0 Valentina Armstrong D.O. 04/26 Vitamin C 500mg Tablets 1 by mouth every day Unknown Folic Acid 1mg Tablets 1 by mouth every day Unknown Evening [place] Oil 500mg Capsules Unknown Tablets 1 by anaya th every day Unknown Ovasitol 2000-50mg Packet Unknown History Medications Bactrim DS 800-160mg Tablets take one tablet by mouth every 12 hours for seven days 14tabs Aquiles VillalobosO. 07/26/2020 - 08/06/2020 Cephalexin 500mg Tablets take one tablet by mouth every 12 hours for ten days. 20tabs N39.0 Aquiles BoogieO. 07/20/2020 - 07/26/2020 Diflucan 150mg Tablets one tablet day 1 then repeat in 3 days if not better 2tabs N39.0 Aquiles CummingsO. 07/20/2020 - 08/06/2020 Keflex 500mg Capsules one capsule by mouth every 12 hours for 7 days 14caps S90.211A Urban Villalobos.O. 05/28/2020 - 07/20/2020 Diflucan 200mg Tablets take one tablet after finishing antibiotics and two days later if symptoms persist 3tabs S90.211A Urban Villalobos.O. 05/28/2020 - 07/20/2020 Medrol 4mg TBPK 1 as direc luke. 1pack G50.0 Urban Villalobos.O. 05/08/2020 - 07/20/2020 Bactrim DS 800-160mg Tablets 1 by mouth every 12 hour x 10 days 20tabs Aquiles Villalobos O. 02/07/2020 - 04/30/2020 Diflucan 150mg Tablets one tablet day 1 then repeat in 3 days if not better 2tabs Aquiles CummingsOLyle 02/07/2020 - 04/30/2020 Medications Administered in Office Medication SIG Qnty Indications Ordering Provider Date Injection Ketorolac Tromethamine Per 15 MG (Toradol) Injection Aquiles DonohueOLyle 05/12/2020 Injection Ketorolac Tromethamine Per 15 MG (Toradol) Injection KIA Sullivan 05/08/2020 Injection Ceftriaxone Sodium Per 250 MG (Rocephin) Injection Valentina Pugh D.O. 09/30/2019 Immunizations Description No Information Available Vital Signs Date Vital Result Comment 08/06/2020 1:58pm BP Systolic 118 mmHg BP Diastolic 76 mmHg Height 64.7 inches 5'4.70" Weight 204.00 lb BMI (Body Mass Index) 34.3 kg/m2 Heart Rate 88 /min Respiratory Rate 18 /min Body Temperature 97.4 F O2 % BldC Oximetry 98 % [place] Body Weight 120 lb 07/20/2020 10:20am BP Systolic 122 mmHg BP Diastolic 76 mmHg Height 64.7 inches 5'4.70" Weight 199.00 lb BMI (Body Mass Index) 33.4 kg/m2 Heart Rate 97 /min Respiratory Rate 18 /min Body Temperature 98.6 F O2 % BldC Oximetry 199 % [place] Body Weight 120 lb Results Test Acquired Date Facility Test Result H/L Range Note Laboratory test finding 08/06/2020 [facility] Image-Guided Pap W/Age Based SCR Protocols <pending> Inhouse Ua 07/20/2020 Inhouse Inhouse Leukocytes +++ Inhouse Nitrite negative Inhouse Urobilinogen negative Inhouse Protein ++ Inhouse PH 6 Inhouse Hemoglobin negative Inhouse Specific [place] 1.030 Inhouse Ketones ++ Inhouse Bilirubin + Inhouse Glucose negative Laboratory test finding 07/20/[address] [address] [phone] Urine Culture FULL REPORT IN L <SEE NOTE> Normal 1 Genital Culture FULL REPORT IN L <SEE NOTE> Normal 2 Genital Culture And Gram Stain 05/28/2020 [place] [address] [phone] Gram Stain (SEE NOTE) Normal 3 Genital Culture FULL REPORT IN L <SEE NOTE> Normal 4 1 FULL REPORT IN LAB NOTES ([facility]). SPECIMEN APPEARS CONTAMINATED 2 FULL REPORT IN LAB NOTES ([facility]). NORMAL TAYLOR PRESENT ORGANISM 1: STAPHYLOCOCCUS AUREUS QUANTITY OF GROWTH MODERATE ORGANISM 1: STAPHYLOCOCCUS AUREUS STAPHYLOCOCCUS AUREUS: REACTION ICR (INDUCIBLE CC RESISTANCE) IV ICR TEST RESULT TETRACYCLINE PO 250 mg qid <=1 S PENICILLIN G IV 1 mu q6H >=0.5 R PENICILLIN G IV 1 mu q6h >=0.5 R PENICILLIN G PO 250mg q6h fasting >=0.5 R TRIMETHOPRIM/SULFAMETHOXAZOLE IV 160mg TMP & 800mg SMXq6h <=10 S TRIMETHOPRIM/SULFAMETHOXAZOLE PO Bactrim DS Bid <=10 S ERYTHROMYCIN IV 500mg q6h <=0.25 S ERYTHROMYCIN PO 500mg q6h <=0.25 S GENTAMICIN IV 80mg q8h <=0.5 S CLINDAMYCIN IV 600mg q6h 0.25 S CLINDAMYCIN PO 150mg q6h 0.25 S OXACILLIN IV 500mg q6h 0.5 S VANCOMYCIN IV 500mg q8h 1 S LINEZOLID (ZYVOX) IV 600MG Q12HR 2 S LINEZOLID (ZYVOX) PO 600MG Q12HR 2 S An isolate with a (+) POSITIVE ICR test is considered CLINDAMYCIN RESISTANT; however, clindamycin may still be effective in some patients. An isolate with a (-) NEGATIVE ICR test is considered CLIDAMYCIN SENSITIVE. Oxacillin result predicts susceptibility to all penicillinase-stable penicillins (Nafcillin, Dicloxacilin), Cephalosporins, Carbapenems, Amoxicillin/Clavulanate & Ampicillin/Sulbactam per CSLI standards. 3 FEW EPITHELIAL CELLS FEW WBCS FEW GRAM POSITIVE RODS MODERATE GRAM POSITIVE COCCI IN PAIRS AND CLUSTERS MANY GRAM NEGATIVE RODS 4 FULL REPORT IN LAB NOTES ([facility]). NORMAL TAYLOR PRESENT ORGANISM 1: STREP AGALACTIAE GROUP B QUANTITY OF GROWTH MODERATE ORGANISM 1: STREP AGALACTIAE GROUP B STREP AGALACTIAE GROUP B: REACTION ICR (INDUCIBLE CC RESISTANCE) IV ICR TEST RESULT TETRACYCLINE PO 250 mg qid >=16 R PENICILLIN G IV 1 mu q6h <=0.06 S PENICILLIN G PO 250mg q6h fasting <=0.06 S AMPICILLIN IV 500mg q6h <=0.25 S AMPICILLIN PO 500mg q6h fasting <=0.25 S ERYTHROMYCIN IV 500mg q6h >=8 R ERYTHROMYCIN PO 500mg q6h >=8 R LEVOFLOXACIN IV 500mg qd 1 S LEVOFLOXACIN PO 250mg qd 1 S LEVOFLOXACIN PO 500mg qd 1 S VANCOMYCIN IV 500mg q8h 0.5 S MOXIFLOXACIN (AVELOX) IV 400MG QD 0.12 S MOXIFLOXACIN (AVELOX) PO 400MG QD 0.12 S CEFTRIAXONE IV 1gm q24h <=0.12 S CEFOTAXIME IV 1gm q8h <=0.12 S An isolate with a (+) POSITIVE ICR test is considered CLINDAMYCIN RESISTANT; however, clindamycin may still be effective in some patients. An isolate with a (-) NEGATIVE ICR test is considered CLIDAMYCIN SENSITIVE. Procedures Description No Information Available Medical Devices Description No Information Available Encounters Type Date Location Provider Dx Diagnosis Office Visit 08/06/2020 2:00p [facility] Valentina Armstrong D.O. Z00.01 Encounter for general adult medical exam w abnormal findings N76.0 Acute vaginitis Z11.3 Encntr screen for infections w sexl mode of transmiss Office Visit 07/20/2020 10:20a [facility] KIA Resendez N39.0 Urinary tract infection, sit e not specified Office Visit 05/28/2020 1:20p [facility] KIA Resendez S90.211A Contusion of right great toe w damage to nail, init encntr N76.0 Acute vaginitis Office Visit 05/12/2020 11:30a [facility] Valentina Armstrong D.O. F33.1 Major depressive disorder, r ecurrent, moderate G50.0 Trigeminal neuralgia Office Visit 05/08/2020 1:20p [facility] KIA Wilson G50.0 Trigeminal neuralgia Office Visit 04/30/2020 10:40a [facility] KIA Wilson G50.0 Trigeminal neuralgia M25.552 Pain in left hip Assessments Date Code Description Provider 08/06/2020 Z00.01 Encounter for genera l adult medical examination with abnormal findings Valentina Armstrong D.O. 08/06/2020 N76.0 Acute vaginitis Valentina maldonado D.O. 08/06/2020 Z11.3 Encounter for screen ing for infections with a predominantly sexual mode of transmission Valentina Armstrong D.O. 07/20/2020 N39.0 Urinary tract infection, site no t specified KIA Resendez 05/28/2020 S90.211A Contusion of right g reat toe with damage to nail, initial encounter KIA Resendez 05/28/2020 N76.0 Acute vaginitis KIA Resendez 05/12/2020 F33.1 Major depressive disorder, recur rent, moderate Valentina Hodge D.OLyle 05/12/2020 G50.0 Trigeminal neuralgia Valentina Mims D.O. 05/08/2020 G50.0 Trigeminal neuralgia KIA Baca 04/30/2020 G50.0 Trigeminal neuralgia KIA Baca 04/30/2020 M25.552 Pain in left hip KIA Berger Plan of Treatment No Information Available Functional Status Description No Information Available Mental Status Description No Information Available Referrals Refer to Reason for Referral Status Appt Date [facility] This is a 19 year old female who is so cannot take tegretol and is suffering from trigeminal neuralgia. Please evaluate and treat. Closed [address] [place] [address] [phone] Miriam Riley M.D. 19 year old with right sided jaw pain radiating to the face, consistent with trigeminal neuralgia. Please eval and treat. Closed 06/02/2020 [facility] [address] [place] [address] [phone] Moe Gates M.D. 19 year old female with left hip pain. Please eval and treat. Closed [facility] [address] [place] [address] [phone]
--- OUTSIDE RECORDS SUMMARY | 2020-08-14 17:57 | CCD | Continuity of Care Document ---
Author Author Chalo ARMSTRONG D.O. Organization Unknown Address [address] [facility] [facility] [address] [place] [address] Phone [phone] Care Team Providers Care Mathematics Teacher Name Role Phone Valentina Armstrong D.O. AUTM Zhengsabino Ismael HANNON AUTM [phone] Moe Gates M.D. AUTM [phone] Luis Riley AUTM [phone] [facility] Neurology [facility] AUTM Problems Description No Information Available [...] by mouth every day Unknown Evening [place] Oil 500mg Capsules Unknown Tablets 1 by anaya th every day Unknown Ovasitol 2000-50mg Packet Unknown History Medications Bactrim DS 800-160mg Tablets take one tablet by mouth every 12 hours for seven days 14tabs Aquiles VillalobosOLyle 07/26/2020 - 08/06/2020 Diflucan 150mg Tablets one tablet day 1 then repeat in 3 days if not better 2tabs N39.0 Aquiles CummingsO. 07/20/2020 - 08/06/2020 Cephalexin 500mg Tablets take one tablet by mouth every 12 hours for ten days. 20tabs N39.0 Aquiles BoogieO. 07/20/2020 - 07/26/2020 Keflex 500mg Capsules one capsule by mouth every 12 hours for 7 days 14caps S90.211A Aquiles VillalobosO. 05/28/2020 - 07/20/2020 Diflucan 200mg Tablets take one tablet after finishing antibiotics and two days later if symptoms persist 3tabs S90.211A Aquiles VillalobosOLyle 05/28/2020 - 07/20/2020 Medrol 4mg TBPK 1 as direc luke. 1pack G50.0 Aquiles VillalobosO. 05/08/2020 - 07/20/2020 Bactrim DS 800-160mg Tablets 1 by mouth every 12 hour x 10 days 20tabs Aquiles Villalobos OLyle 02/07/2020 - 04/30/2020 Diflucan 150mg Tablets one tablet day 1 then repeat in 3 days if not better 2tabs Aquiles CummingsOLyle 02/07/2020 - 04/30/2020 Escitalopram Oxalate 10mg Tablets 1 by mouth every day 30tabs F33.1 Aquiles VillalobosO. 02/04 - 04/30/2020 Triamcinolone Acetonide 0.1% Cream apply externally to affected skin on left elbow and left lower leg twice a day for 7 days as needed for flare ups 80gm R21 Valentina villareal D.O. 02/05/2020 - 07/20/2020 Medications Administered in Office Medication SIG Qnty Indications Ordering Provider Date Injection Ketorolac Tromethamine Per 15 MG (Toradol) Injection Valentina Pugh D.O. 05/12/2020 Injection Ketorolac Tromethamine Per 15 MG [...] F O2 % BldC Oximetry 98 % [place] Body Weight 120 lb 07/20/2020 10:20am BP Systolic 122 mmHg BP Diastolic 76 mmHg Height 64.7 inches 5'4.70" Weight 199.00 lb BMI (Body Mass Index) 33.4 kg/m2 Heart Rate 97 /min Respiratory Rate 18 /min Body Temperature 98.6 F O2 % BldC Oximetry 199 % [place] Body Weight 120 lb Results Test Acquired Date Facility Test Result H/L Range Note Laboratory test finding 08/06/2020 [facility] Image-Guided Pap W/Age Based SCR Protocols <pending> Inhouse Ua 07/20/2020 Inhouse Inhouse Leukocytes +++ Inhouse Nitrite negative Inhouse Urobilinogen negative Inhouse Protein ++ Inhouse PH 6 Inhouse Hemoglobin negative Inhouse Specific [address] 1.030 Inhouse Ketones ++ Inhouse Bilirubin + Inhouse Glucose negative Laboratory test finding 07/20/[address] [id number] [phone] Urine Culture FULL REPORT IN L <SEE NOTE> Normal 1 Genital Culture FULL REPORT IN L <SEE NOTE> Normal 2 Genital Culture And Gram Stain 05/28/[address] [address] [phone] Gram Stain (SEE NOTE) Normal 3 Genital Culture FULL REPORT IN L <SEE NOTE> Normal 4 Laboratory test finding 02/05/2020 [facility] [address] [place] [address] [phone] Genital Culture FULL REPORT IN L <SEE NOTE> Normal 5 Urine Culture 02/05/2020 [facility] Outpatient Testi justo (Registration) [address] [place] [address] [phone] Urine Culture FULL REPORT IN L <SEE NOTE> Normal 6 1 FULL REPORT IN LAB NOTES (eC [...] NEGATIVE ICR test is considered CLIDAMYCIN SENSITIVE. 5 FULL REPORT IN LAB NOTES (eC W and Medent). NORMAL TAYLOR PRESENT ORGANISM 1: STREP AGALACTIAE GROUP B QUANTITY OF GROWTH HEAVY ORGANISM 1: STREP AGALACTIAE GROUP B STREP [...] NEGATIVE ICR test is considered CLIDAMYCIN SENSITIVE. 6 FULL REPORT IN LAB NOTES (eC W and Medent). SPECIMEN APPEARS CONTAMINATED Procedures Description No Information Available Medical Devices Description No Information Available Encounters Type Date Location Provider Dx Diagnosis Office Visit 08/06/2020 2:00p [facility] Manuel Armstrong D.O. Z00.01 Encounter for general adult medical exam w abnormal findings N76.0 Acute vaginitis Z11.3 Encntr screen for infections w sexl mode of transmiss Office Visit 07/20/2020 10:20a [facility] KIA Resendez N39.0 Urinary tract infection, sit e not specified Office Visit 05/28/2020 1:20p [facility] KIA Resendez S90.211A Contusion of right great toe w damage to nail, init encntr N76.0 Acute vaginitis Office Visit 05/12/2020 11:30a [facility] Valentina Armstrong D.O. F33.1 Major depressive disorder, r ecurrent, moderate G50.0 Trigeminal neuralgia Office Visit 05/08/2020 1:20p [facility] KIA Wilson G50.0 Trigeminal neuralgia Office Visit 04/30/2020 10:40a [facility] KIA Wilson G50.0 Trigeminal neuralgia M25.552 Pain in left hip Office Visit 02/05/2020 10:20a [facility] Valentina Armstrong D.O. F33.1 Major depressive disorder, r ecurrent, moderate K64.9 Unspecified hemorrhoids R21 Rash and other nonspecific s kin eruption R30.0 Dysuria N76.0 Acute vaginitis Assessments Date Code Description Provider 08/06/2020 Z00.01 Encounter for genera l adult medical examination with abnormal findings Valentina Armstrong D.O. 08/06/2020 N76.0 Acute vaginitis Urban Vieira.O. 08/06/2020 Z11.3 Encounter for screen ing for infections with a predominantly sexual mode of transmission Urban Villalobos.O. 07/20/2020 N39.0 Urinary tract infection, site no t specified KIA Resendez 05/28/2020 S90.211A Contusion of right g reat toe with damage to nail, initial encounter KIA Resendez 05/28/2020 N76.0 Acute vaginitis KIA Resendez 05/12/2020 F33.1 Major depressive disorder, recur rent, moderate Urban Shultz.O. 05/12/2020 G50.0 Trigeminal neuralgia Urban Rosas.O. 05/08/2020 G50.0 Trigeminal neuralgia KIA Baca 04/30/2020 G50.0 Trigeminal neuralgia KIA Baca 04/30/2020 M25.552 Pain in left hip KIA Berger 02/05/2020 F33.1 Major depressive disorder, recur rent, moderate Urban Shultz.O. 02/05/2020 K64.9 Unspecified hemorrhoids Urban Quinones.O. 02/05/2020 R21 Rash and other nonspecific skin eruption Urban Villalobos.O. 02/05/2020 R30.0 Dysuria Valentina maldonado D.O. 02/05/2020 N76.0 Acute vaginitis Valentina maldonado D.O. Plan of Treatment No Information Available Functional Status Description No Information Available Mental Status Description No Information Available Referrals Refer to Reason for Referral Status Appt Date [facility] Neurology [facility] This is a 19 year old female who is so cannot take tegretol and is suffering from trigeminal neuralgia. Please evaluate and treat. [facility] [address] [facility] [place] [address] [phone] Miriam Riley M.D. 19 year old with right sided jaw pain radiating to the face, consistent with trigeminal neuralgia. Please eval and treat. Closed 06/02/2020 [facility] Neurology [address] [place] [address] [phone] Moe Gates M.D. 19 year old female with left hip pain. Please eval and treat. Closed [facility] [address] [place] [address] [phone] Tanika Guevara DO This is a 19 year old female with external hemorrhoid that is very bothersome to her and she would like it removed. Please evaluate and treat. Patient Notified 02/13/2020 [address] [facility] [address] [place] [address] [phone]
--- OUTSIDE RECORDS SUMMARY | 2020-08-14 17:57 | CCD | Continuity of Care Document ---
Author Author Chalo ARMSTRONG D.O. Organization Unknown Address [address] [place] [address] Phone [phone] Care Team Providers Care Registered Health Nurse Name Role Phone Valentina Armstrong D.O. AUTM Zhengsabino Ismael HANNON AUTM [phone] Moe Gates M.D. AUTM [phone] Luis Riley AUTM [phone] [facility] Neurology [facility] AUTM Problems Description No Information Available Social [...] 1 by mouth every day Unknown Evening [place] Oil 500mg Capsules Unknown Tablets 1 by anaya th every day Unknown Ovasitol 2000-50mg Packet Unknown History Medications Bactrim DS 800-160mg Tablets take one tablet by mouth every 12 hours for seven days 14tabs Aquiles VillalobosOLyle 07/26/2020 - 08/06/2020 Cephalexin 500mg Tablets take [...] 1pack G50.0 Urban Villalobos.O. 05/08/2020 - 07/20/2020 Medications Administered in Office Medication SIG Qnty Indications Ordering Provider Date Injection Ketorolac Tromethamine Per 15 MG (Toradol) Injection Aquiles DonohueOLyle 05/12/2020 Injection Ketorolac Tromethamine Per 15 MG (Toradol) Injection KIA Sullivan 05/08/2020 Injection Ceftriaxone Sodium Per 250 MG (Rocephin) Injection Urban Donohue.OLyle 09/30/2019 Immunizations Description No Information Available Vital Signs Date Vital Result Comment 08/06/2020 1:58pm BP Systolic 118 mmHg BP Diastolic 76 mmHg Height 64.7 inches 5'4.70" Weight 204.00 lb BMI (Body Mass Index) 34.3 kg/m2 Heart Rate 88 /min Respiratory Rate 18 /min Body Temperature 97.4 F O2 % BldC Oximetry 98 % [place] Body Weight 120 lb 07/20/2020 10:20am BP Systolic 122 mmHg BP Diastolic 76 mmHg Height 64.7 inches 5'4.70" Weight 199.00 lb BMI (Body Mass Index) 33.4 kg/m2 Heart Rate 97 /min Respiratory Rate 18 /min Body Temperature 98.6 F O2 % BldC Oximetry 199 % [place] Body Weight 120 lb Results Test Acquired Date Facility Test Result H/L Range Note Laboratory test finding 08/06/[address] [address] [phone] Genital Culture FULL REPORT IN L <SEE NOTE> Normal 1 Laboratory test finding 08/06/2020 [facility] Image-Guided Pap W/Age Based SCR Protocols <pending> Inhouse Ua 07/20/2020 Inhouse Inhouse Leukocytes +++ Inhouse Nitrite negative Inhouse Urobilinogen negative Inhouse Protein ++ Inhouse PH 6 Inhouse Hemoglobin negative Inhouse Specific [place] 1.030 Inhouse Ketones ++ Inhouse Bilirubin + Inhouse Glucose negative Laboratory test finding 07/20/[address] [address] [phone] Urine Culture FULL REPORT IN L <SEE NOTE> Normal 2 Genital Culture FULL REPORT IN L <SEE NOTE> Normal 3 Genital Culture And Gram Stain 05/28/[address] [id number] [phone] Gram Stain (SEE NOTE) Normal 4 Genital Culture FULL REPORT IN L <SEE NOTE> Normal 5 1 FULL REPORT IN LAB NOTES (eC W and Medent). NORMAL TAYLOR PRESENT 2 FULL REPORT IN LAB NOTES (eC W and Medent). SPECIMEN APPEARS CONTAMINATED 3 FULL REPORT IN LAB NOTES (eC W [...] Carbapenems, Amoxicillin/Clavulanate & Ampicillin/Sulbactam per CSLI standards. 4 FEW EPITHELIAL CELLS FEW WBCS FEW GRAM POSITIVE RODS MODERATE GRAM POSITIVE COCCI IN PAIRS AND CLUSTERS MANY GRAM NEGATIVE RODS 5 FULL REPORT IN LAB NOTES (eC [...] 08/06/2020 2:00p [facility] Valentina Armstrong D.O. Z00.01 Encounter for general adult medical exam w abnormal findings N76.0 Acute vaginitis Z11.3 Encntr screen for infections w sexl mode of transmiss Office Visit 07/20/2020 10:20a [facility] KIA Resendez N39.0 Urinary tract infection, sit e not specified Office Visit 05/28/2020 1:20p [facility] KIA Resendez S90.211A Contusion of right great toe w damage to nail, init encntr N76.0 Acute vaginitis Office Visit 05/12/2020 11:30a [facility] Valentina Armstrong D.O. F33.1 Major depressive disorder, r ecurrent, moderate G50.0 Trigeminal neuralgia Office Visit 05/08/2020 1:20p [facility] KIA Wilson G50.0 Trigeminal neuralgia Office Visit 04/30/2020 10:40a [facility] KIA Wilson G50.0 Trigeminal neuralgia M25.552 [...] depressive disorder, recur rent, moderate Valentina Hodge D.O. 05/12/2020 G50.0 Trigeminal neuralgia Aquiles RosasOLyle 05/08/2020 G50.0 Trigeminal neuralgia KIA Baca 04/30/2020 G50.0 Trigeminal neuralgia KIA Baca 04/30/2020 M25.552 Pain in left hip KIA Berger Plan of Treatment No Information Available Functional Status Description No Information Available Mental Status Description No Information Available Referrals Refer to Reason for Referral Status Appt Date [facility] This is a 19 year old female who is so cannot take tegretol and is suffering from trigeminal neuralgia. Please evaluate and treat. Closed [address] [place] [address] [phone] Miriam Riley M.D. 19 year old with right sided jaw pain radiating to the face, consistent with trigeminal neuralgia. Please eval and treat. Closed 06/02/2020 [facility] Neurology [facility] [place] [address] [phone] Meo Gates M.D. 19 year old female with left hip pain. Please eval and treat. Closed [facility] [address] [place], [place] [address] [phone]
--- OUTSIDE RECORDS SUMMARY | 2020-08-14 17:57 | CCD | Continuity of Care Document ---
Author Author Chalo ARMSTRONG D.O. Organization Unknown Address [address] [place] [address] Phone [phone] Care Team Providers Care College Recruiter Name Role Phone Valentina Armstrong D.O. AUTM [phone] Zhengsabino Ismael HANNON AUTM [phone] Moe Gates M.D. AUTM [phone] Luis Riley AUTM [phone] [facility] Neurology [facility] AUTM [phone] Problems Description No Information Available Social History [...] 1 by mouth every day Unknown Evening [place] Oil 500mg Capsules Unknown Tablets 1 by anaya th every day Unknown Ovasitol 2000-50mg Packet Unknown History Medications Bactrim DS 800-160mg Tablets take one tablet by mouth every 12 hours for seven days 14tabs Aqiules VillalboosOLyle 07/26/2020 - 08/06/2020 Cephalexin 500mg Tablets take [...] F O2 % BldC Oximetry 98 % [place] Body Weight 120 lb 07/20/2020 10:20am BP Systolic 122 mmHg BP Diastolic 76 mmHg Height 64.7 inches 5'4.70" Weight 199.00 lb BMI (Body Mass Index) 33.4 kg/m2 Heart Rate 97 /min Respiratory Rate 18 /min Body Temperature 98.6 F O2 % BldC Oximetry 199 % [place] Body Weight 120 lb Results Test Acquired Date Facility Test Result H/L Range Note Laboratory test finding 08/06/2020 [place] [id number] [phone] Genital Culture FULL REPORT IN L <SEE NOTE> Normal 1 Image-Guided Pap W Age-Based SCR W CT/NG 08/06/2020 [facility] Comment (SEE NOTE) 2 Thinprep Tis Pap Reflex HPV Mrna E6/E7 08/06/2020 [facility] Report Status: DNR Normal Clinical Information: (SEE NOTE) Normal 3 LMP: (SEE NOTE) Normal 4 Prev. Pap: (SEE NOTE) Normal 5 Prev. BX: (SEE NOTE) Normal 6 Source: (SEE NOTE) Normal 7 Statement Of Adequacy: (SEE NOTE) Normal 8 General Categorization: DNR Normal Interpretation/Result: (SEE NOTE) Normal 9 Infection: DNR Normal Comment: (SEE NOTE) Normal 10 Tableau Developer: (SEE NOTE) Normal 11 Review Tableau Developer: DNR Normal Pathologist: DNR Normal Comment (SEE NOTE) 12 Chlamydia/N. Gonorrhoeae Rna, Tma, Uroge 08/06/2020 [facility] Chlamydia Trachomatis Rna, Tma, Urogenital NOT DETECTED Normal Not Detected Neisseria Gonorrhoeae Rna, Tma, Urogenital NOT DETECTED Normal Not Detected Comment (SEE NOTE) 13 Laboratory test finding 08/06/2020 [facility] Enhanced PDF Report [id number] SEE IMAGE Laboratory test finding 08/06/2020 [facility] Image-Guided Pap W/Age Based SCR Protocols <pending> Inhouse Ua 07/20/2020 Inhouse Inhouse Leukocytes +++ Inhouse Nitrite negative Inhouse Urobilinogen negative Inhouse Protein ++ Inhouse PH 6 Inhouse Hemoglobin negative Inhouse Specific [place] 1.030 Inhouse Ketones ++ Inhouse Bilirubin + Inhouse Glucose negative Laboratory test finding 07/20/[address] [address] [phone] Urine Culture FULL REPORT IN L <SEE NOTE> Normal 14 Genital Culture FULL REPORT IN L <SEE NOTE> Normal 15 Genital Culture And Gram Stain 05/28/[address] [id number] [phone] Gram Stain (SEE NOTE) Normal 16 Genital Culture FULL REPORT IN L <SEE NOTE> Normal 17 1 FULL REPORT IN LAB NOTES (eC W and Medent). NORMAL TAYLOR PRESENT 2 This order for age-based cer vical cancer and STI screening follows ACOG guidelines(PB 168, 140, TGD804). See individual assays for performing site location. 3 Routine exam 4 None given 5 None given 6 None given 7 Cervix, Endocervix 8 Satisfactory for evaluation. Endocervical/transformation zone component present. 9 Negative for intraepithelial lesion or malignancy. 10 This Pap test has been evalu ated with computer assisted technology. 11 BH, CT(ASCP) CT screening lo cation: [email or web address] [address]. 12 EXPLANATORY NOTE: The Pap is a screening test for cervical cancer. It is not a diagnostic test and is subject to false negative and false positive results. It is most reliable when a satisfactory sample, regularly obtained, is submitted with relevant clinical findings and history, and when the Pap result is evaluated along with historic and current clinical information. 13 The analytical performance c haracteristics of this assay, when used to test SurePath(TM) specimens have been determined by [email or web address]. The modifications have not been cleared or approved by the FDA. This assay has been validated pursuant to the CLIA regulations and is used for clinical purposes. For additional information, please refer to https://education.Solvoyo.ZupCat/faq/MYX364 (This link is being provided for informa tion/ educational purposes only.) 14 FULL REPORT IN LAB NOTES (eC W and Medent). SPECIMEN APPEARS CONTAMINATED 15 FULL REPORT IN LAB NOTES (eC W [...] Carbapenems, Amoxicillin/Clavulanate & Ampicillin/Sulbactam per CSLI standards. 16 FEW EPITHELIAL CELLS FEW WBCS FEW GRAM POSITIVE RODS MODERATE GRAM POSITIVE COCCI IN PAIRS AND CLUSTERS MANY GRAM NEGATIVE RODS 17 FULL REPORT IN LAB NOTES (eC W [...] Provider Dx Diagnosis Office Visit 08/06/2020 2:00p [facility] Valentina Armstrong D.O. Z00.01 Encounter for general adult medical exam w abnormal findings N76.0 Acute vaginitis Z11.3 Encntr screen for infections w sexl mode of transmiss Office Visit 07/20/2020 10:20a [facility] KIA Resendez N39.0 Urinary tract infection, sit e not specified Office Visit 05/28/2020 1:20p [facility] KIA Resendez S90.211A Contusion of right great toe w damage to nail, init encntr N76.0 Acute vaginitis Office Visit 05/12/2020 11:30a [facility] Valentina Armstrong D.O. F33.1 Major depressive disorder, r ecurrent, moderate G50.0 Trigeminal neuralgia Office Visit 05/08/2020 1:20p [facility] KIA Wilson G50.0 Trigeminal neuralgia Office Visit 04/30/2020 10:40a [facility] KIA Wilson G50.0 Trigeminal neuralgia M25.552 Pain in left hip Assessments Date Code Description Provider 08/06/2020 Z00.01 Encounter for genera l adult medical examination with abnormal findings Valentina Armstrong D.O. 08/06/2020 N76.0 Acute vaginitis Valentina maldonado D.O. 08/06/2020 Z11.3 Encounter for screen ing for infections with a predominantly sexual mode of transmission Aquiles VillalobosOLyle 07/20/2020 N39.0 Urinary tract infection, site no t specified KIA Resendez 05/28/2020 S90.211A Contusion of right g reat toe with damage to nail, initial encounter KIA Resendez 05/28/2020 N76.0 Acute vaginitis KIA Resendez 05/12/2020 F33.1 Major depressive disorder, recur rent, moderate Urban hSultz.OLyle 05/12/2020 G50.0 Trigeminal neuralgia Aquiles RosasOLyle 05/08/2020 G50.0 Trigeminal neuralgia KIA Baca 04/30/2020 G50.0 Trigeminal neuralgia KIA Baca 04/30/2020 M25.552 Pain in left hip KIA Berger Plan of Treatment No Information Available Functional Status Description No Information Available Mental Status Description No Information Available Referrals Refer to Reason for Referral Status Appt Date [facility] Neurology Clinic This is a 19 year old female who is so cannot take tegretol and is suffering from trigeminal neuralgia. Please evaluate and treat. Closed [address] [place] [address] [phone] Miriam Riley M.D. 19 year old with right sided jaw pain radiating to the face, consistent with trigeminal neuralgia. Please eval and treat. Closed 06/02/2020 [facility] Neurology [address] [place], [place] [id number] [phone] Moe Gates M.D. 19 year old female with left hip pain. Please eval and treat. Closed [facility] [address] [place] [address] [phone]
--- OUTSIDE RECORDS SUMMARY | 2020-08-14 17:57 | CCD | Continuity of Care Document ---
Author Author Chalo LACEY SC Organization Unknown [place] [address] Phone [phone] Care Team Providers Care Principal Cloud Architect Name Role Phone Valentina Armstrong D.O. AUTM [phone] Zhengsabino Ismael HANNON AUTM [phone] Moe Gates M.D. AUTM [phone] Luis Riley AUTM [phone] [facility] Neurology [facility] AUTM [phone] Problems Description No Information Available Social History Type Date Description Comments Sex Unknown ETOH Use Never used alcohol Tobacco Use Start: Unknown Patient has never smoked Recreational Drug Use Never Used Drugs Smoking Status Reviewed: 04/30/20 Patient has never smoked Exercise Type/Frequency Cardio every we ek Sun Exposure Uses sunscreen Seat Belt/Car Seat Always uses seat belt Allergies, Adverse Reactions, Alerts Description No Known Drug Allergies Medications Active Medications SIG Qnty Indications Ordering Provide r Date Bactrim DS 800-160mg Tablets take one tablet by mouth every 12 hours for seven days 14tabs Valentina Armstrong D.O. 07/26/2020 Diflucan 150mg Tablets one tablet day 1 then repeat in 3 days if not better 2tabs N39.0 Urban Cummings.O. 07/20/2020 Naproxen 500mg Tablets take one tab with food twice a day 60tabs G50.0 Urban Villalobos.O. 04/26 History Medications Cephalexin 500mg Tablets take one tablet by mouth every 12 hours for ten days. 20tabs N39.0 Urban Boogie.O. 07/20/2020 - 07/26/2020 Keflex 500mg Capsules one [...] 3 days if not better 2tabs Aquiles CummingsO. 02/07/2020 - 04/30/2020 Escitalopram Oxalate 10mg Tablets 1 by mouth every day 30tabs F33.1 Aquiles VillalobosO. 02/04 - 04/30/2020 Triamcinolone Acetonide 0.1% Cream apply externally to affected skin on left elbow and left lower leg twice a day for 7 days as needed for flare ups 80gm R21 Aquiles SebastianO. 02/05/2020 - 07/20/2020 Medications Administered in Office Medication SIG Qnty Indications Ordering Provider Date Injection Ketorolac Tromethamine Per 15 MG (Toradol) Injection Valentina Pugh D.O. 05/12/2020 Injection Ketorolac Tromethamine Per 15 MG (Toradol) Injection KIA Sullivan 05/08/2020 Injection Ceftriaxone Sodium Per 250 MG (Rocephin) Injection Aquiles DonohueOLyle 09/30/2019 Immunizations Description No Information Available Vital Signs Date Vital Result Comment 07/20/2020 10:20am BP Systolic 122 mmHg BP Diastolic 76 mmHg Height 64.7 inches 5'4.70" Weight 199.00 lb BMI (Body Mass Index) 33.4 kg/m2 Heart Rate 97 /min Respiratory Rate 18 /min Body Temperature 98.6 F O2 % BldC Oximetry 199 % [place] Body Weight 120 lb 05/28/2020 1:30pm BP Systolic 118 mmHg BP Diastolic 80 mmHg Height 64.7 inches 5'4.70" Weight 201.12 lb BMI (Body Mass Index) 33.8 kg/m2 Heart Rate 98 /min Body Temperature 98.8 F O2 % BldC Oximetry 99 % [place] Body Weight 120 lb Results Test Acquired Date Facility Test Result H/L Range Note Inhouse Ua 07/20/2020 Inhouse Inhouse Leukocytes +++ Inhouse Nitrite negative Inhouse Urobilinogen negative Inhouse Protein ++ Inhouse PH 6 Inhouse Hemoglobin negative Inhouse Specific [place] 1.030 Inhouse Ketones ++ Inhouse Bilirubin + Inhouse Glucose negative Laboratory test finding 07/20/[address] [address] [phone] Urine Culture FULL REPORT IN L <SEE NOTE> Normal 1 Genital Culture FULL REPORT IN L <SEE NOTE> Normal 2 Genital Culture And Gram Stain 05/28/[address] [id number] [phone] Gram Stain (SEE NOTE) Normal 3 Genital Culture FULL REPORT IN L <SEE NOTE> Normal 4 Laboratory test finding 02/05/[address] [address] [phone] Genital Culture FULL REPORT IN L <SEE NOTE> Normal 5 Urine Culture 02/05/2020 [facility] Outpatient Testi ng (Registration) [address] [place] [address] [phone] Urine Culture FULL REPORT IN L <SEE [...] Date Location Provider Dx Diagnosis Office Visit 07/20/2020 10:20a [facility] KIA Stokes N39.0 Urinary tract infection, sit e not specified Office Visit 05/28/2020 1:20p [facility] KIA Stokes S90.211A Contusion of right great toe w damage to nail, init encntr N76.0 Acute vaginitis Office Visit 05/12/2020 11:30a [facility] Manuel Armstrong D.O. F33.1 Major depressive disorder, r ecurrent, moderate G50.0 Trigeminal neuralgia Office Visit 05/08/2020 1:20p [facility] KIA Wilson G50.0 Trigeminal neuralgia Office Visit 04/30/2020 10:40a [facility] KIA Wilson G50.0 Trigeminal neuralgia M25.552 Pain in left hip Office Visit 02/05/2020 10:20a [facility] Valentina Armstrong D.O. F33.1 Major depressive disorder, r ecurrent, moderate K64.9 Unspecified hemorrhoids R21 Rash and other nonspecific s kin eruption R30.0 Dysuria N76.0 Acute vaginitis Assessments Date Code Description Provider 07/20/2020 N39.0 Urinary tract infection, site no t specified KIA Resendez 05/28/2020 S90.211A Contusion of right g reat toe with damage to nail, initial encounter KIA Resendez 05/28/2020 N76.0 Acute vaginitis KIA Resendez 05/12/2020 F33.1 Major depressive disorder, recur rent, moderate Valentina Hodge D.O. 05/12/2020 G50.0 Trigeminal neuralgia Valentina Mims, D.O. 05/08/2020 G50.0 Trigeminal neuralgia KIA Baca 04/30/2020 G50.0 Trigeminal neuralgia KIA Baca 04/30/2020 M25.552 Pain in left hip KIA Berger 02/05/2020 F33.1 Major depressive disorder, recur rent, moderate Valentina Hodge, D.O. 02/05/2020 K64.9 Unspecified hemorrhoids Urban Quinones.O. 02/05/2020 R21 Rash and other nonspecific skin eruption Valentinakalyn Armstrong D.O. 02/05/2020 R30.0 Dysuria Valentina maldonado D.O. 02/05/2020 N76.0 Acute vaginitis Valentina maldonado D.O. Plan of Treatment Future Appointment(s):* 08/20/2020 1:00 pm - Valentina Armstrong D.O. at [facility] Functional Status Description No Information Available Mental Status Description No Information Available Referrals Refer to Reason for Referral Status Appt Date [facility] This is a 19 year old female who is so cannot take tegretol and is suffering from trigeminal neuralgia. Please evaluate and treat. Closed [address] [place] [address] [phone] Miriam Riley M.D. 19 year old with right sided jaw pain radiating to the face, consistent with trigeminal neuralgia. Please eval and treat. Closed 06/02/2020 [facility] Neurology [address] [place], [place] [id number] [phone] Moe Gates M.D. 19 year old female with left hip pain. Please eval and treat. Closed [facility] [address] [place] [address] [phone] Tanika Guevara DO This is a 19 year old female with external hemorrhoid that is very bothersome to her and she would like it removed. Please evaluate and treat. Patient Notified 02/13/2020 [address] [facility] [address] [place], [place] [address] [phone]
--- OUTSIDE RECORDS SUMMARY | 2020-08-14 17:58 | CCD | Continuity of Care Document ---
Author Author Chalo LACEY [place] Organization [place] [address] Phone [phone] Care Team Providers Care Cafe Lead Name Role Phone Valentina Armstrong D.O. AUTM Zhengsabino Ismael HANNON AUTM [phone] Moe Gates M.D. AUTM [phone] Luis Riley AUTM [phone] [facility] Neurology [facility] AUTM Problems Description No Information [...] SIG Qnty Indications Ordering Provide r Date Keflex 500mg Capsules one capsule by mouth every 12 hours for 7 days 14caps S90.211A Valentina Armstrong, D.O. 05/28/2020 Diflucan 200mg Tablets take one tablet after finishing antibiotics and two days later if symptoms persist 3tabs S90.211A Valentina Armstrong D.O. 05/28/2020 Naproxen 500mg Tablets take one tab with food twice a day 60tabs G50.0 Valentina Armstrong D.O. 04/26 Medrol 4mg TBPK 1 as direc luke. 1pack G50.0 Aquiles VillalobosOLyle 05/08/2020 Triamcinolone Acetonide 0.1% Cream apply externally to affected skin on left elbow and left lower leg twice a day for 7 days as needed for flare ups 80gm R21 Aquiles SebastianOLyle 02/05/2020 Nexplanon 68mg Implant Unknown History Medications Bactrim DS 800-160mg Tablets 1 by mouth every 12 hour x 10 days 20tabs Aquiles Villalobos O. 02/07/2020 - 04/30/2020 Diflucan 150mg Tablets one tablet day 1 then repeat in 3 days if not better 2tabs Aquiles CummingsOLyle 02/07/2020 - 04/30/2020 Escitalopram Oxalate 10mg Tablets 1 by mouth every day 30tabs F33.1 Aquiles VillalobosOLyle 02/04 - 04/30/2020 Levofloxacin 250mg Tablets one tablet by mouth daily for 7 days 7tabs N39.0 Aquiles VillalobosO Lyle 12/13/2019 - 02/05/2020 Florajen3 Capsules 1 by mouth every day 30caps N76.0 Aquiles VillalobosOLyle 12/13/2019 - 02/05/2020 Diflucan 200mg Tablets take one tablet today and then after finishing antibiotics and two days later if symptoms persist 3tabs N76.0 Aquiles VillalobosO. 12/02 - 02/05/2020 Ciprofloxacin HCL 500mg Tablets one tablet every 12 hours 14tabs N39.0 Urban Villalobos.O. 12/02 - 12/13/2019 Medications Administered in Office Medication SIG Qnty Indications Ordering Provider Date Injection Ketorolac Tromethamine Per 15 MG (Toradol) Injection Aquiles DonohueOLyle 05/12/2020 Injection Ketorolac Tromethamine Per 15 MG (Toradol) Injection KIA Sullivan 05/08/2020 Injection Ceftriaxone Sodium Per 250 MG (Rocephin) Injection Aquiles DonohueO. 09/30/2019 Immunizations Description No Information Available Vital Signs Date Vital Result Comment 05/28/2020 1:30pm BP Systolic 118 mmHg BP Diastolic 80 mmHg Height 64.7 inches 5'4.70" Weight 201.12 lb BMI (Body Mass Index) 33.8 kg/m2 Heart Rate 98 /min Body Temperature 98.8 F O2 % BldC Oximetry 99 % [place] Body Weight 120 lb 05/12/2020 11:19am BP Systolic 118 mmHg BP Diastolic 78 mmHg Height 64.7 inches 5'4.70" Weight 203.25 lb BMI (Body Mass Index) 34.1 kg/m2 Heart Rate 90 /min Body Temperature 97.7 F O2 % BldC Oximetry 98 % [place] Body Weight 120 lb Results Test Acquired Date Facility Test Result H/L Range Note Laboratory test finding 02/05/[address] [address] [phone] Genital Culture FULL REPORT IN L <SEE NOTE> Normal 1 Urine Culture 02/05/2020 [facility] Outpatient Testi ng (Registration) [address] [place] [address] [phone] Urine Culture FULL REPORT IN L <SEE NOTE> Normal 2 Laboratory test finding 12/13/[address] [address] [phone] Urine Culture FULL REPORT IN L <SEE NOTE> Normal 3 Genital Culture FULL REPORT IN L <SEE NOTE> Normal 4 Laboratory test finding 12/03/2019 Inhouse Inhouse Urine neg Inhouse Ua 12/03/2019 Inhouse Inhouse Leukocytes mod Inhouse Nitrite pos Inhouse Urobilinogen neg Inhouse Protein pos Inhouse PH 6.0 Inhouse Hemoglobin trace Inhouse Specific [place] 1.020 Inhouse Ketones neg Inhouse Bilirubin neg Inhouse Glucose neg Genital Culture And Gram Stain 12/03/[address] [address] [phone] Gram Stain (SEE NOTE) Normal 5 Genital Culture FULL REPORT IN L <SEE NOTE> Normal 6 Laboratory test finding 12/03/[address] [address] [phone] Urine Culture FULL REPORT IN L <SEE NOTE> Normal 7 1 FULL REPORT IN LAB NOTES (eC [...] NEGATIVE ICR test is considered CLIDAMYCIN SENSITIVE. 2 FULL REPORT IN LAB NOTES (eC W and [facility]). SPECIMEN APPEARS CONTAMINATED 3 FULL REPORT IN LAB NOTES (eC [facility]). NO GROWTH 4 FULL REPORT IN LAB NOTES (eC W and [facility]). NORMAL TAYLOR PRESENT 5 FEW EPITHELIAL CELLS MANY GRAM POSITIVE RODS FEW GRAM POSITIVE COCCI IN PAIRS 6 FULL REPORT IN LAB NOTES (eC W and [facility]). NORMAL TAYLOR PRESENT ORGANISM 1: STAPHYLOCOCCUS AUREUS QUANTITY OF GROWTH MODERATE ORGANISM 2: STREP AGALACTIAE GROUP B QUANTITY OF GROWTH MODERATE ORGANISM 1: STAPHYLOCOCCUS AUREUS ORGANISM 2: STREP AGALACTIAE GROUP B STAPHYLOCOCCUS AUREUS: REACTION ICR (INDUCIBLE CC RESISTANCE) [...] Carbapenems, Amoxicillin/Clavulanate & Ampicillin/Sulbactam per CSLI standards. STREP AGALACTIAE GROUP B: REACTION ICR (INDUCIBLE [...] 0.5 S MOXIFLOXACIN (AVELOX) IV 400MG QD 0.25 S MOXIFLOXACIN (AVELOX) PO 400MG QD 0.25 S CEFTRIAXONE IV 1gm q24h <=0.12 S CEFOTAXIME IV 1gm q8h <=0.12 S An isolate with a (+) POSITIVE ICR test is considered CLINDAMYCIN RESISTANT; however, clindamycin may still be effective in some patients. An isolate with a (-) NEGATIVE ICR test is considered CLIDAMYCIN SENSITIVE. 7 FULL REPORT IN LAB NOTES (eC W and [facility]). ORGANISM 1: ESCHERICHIA COLI COLONY COUNT >100,000 ORGANISM 1: ESCHERICHIA COLI ESCHERICHIA COLI: REACTION TRIMETHOPRIM/SULFAMETHOXAZOLE IV 160mg TMP & 800mg SMXq6h <=20 S TRIMETHOPRIM/SULFAMETHOXAZOLE PO Bactrim DS Bid <=20 S AMPICILLIN IV 500mg q6h 4 S AMPICILLIN PO 500mg q6h fasting 4 S GENTAMICIN IV 80mg q8h <=1 S NITROFURANTOIN PO 100mg BID <=16 S CEFAZOLIN IV 1gm q8h <=4 S LEVOFLOXACIN IV 500mg qd <=0.12 S LEVOFLOXACIN PO 250mg qd <=0.12 S LEVOFLOXACIN PO 500mg qd <=0.12 S TOBRAMYCIN IV 80mg q8h <=1 S CEFTRIAXONE IV 1gm q24h <=1 S CEFTAZIDIME IV 1gm q8h <=1 S AMPICILLIN/SULBACTAM IV 1.5g q6h <=2 S PIPERACILLIN/TAZOBACTAM IV 2.25 gm q6h <=4 S AZTREONAM IV 1gm q8h <=1 S ERTAPENEM IV 1gm qd <=0.5 S MEROPENEM IV 1 gm q8h <=0.25 S MEROPENEM IV 500 mg q8h <=0.25 S TIGECYCLINE IV 50mg q12h <=0.5 S CEFEPIME IV 1 gm q12h <=1 S CEFEPIME IV 2 gm q12h <=1 S EXTD BRD SPCTRM BETA LACTAMASE IV NEGATIVE FOR ESBL Procedures Description No Information Available Medical Devices Description No Information Available Encounters Type Date Location Provider Dx Diagnosis Office Visit 05/12/2020 11:30a [facility] Aquiles McintyreO. F33.1 Major depressive disorder, r ecurrent, moderate G50.0 Trigeminal neuralgia Office Visit 05/08/2020 1:20p [facility] KIA Wilson G50.0 Trigeminal neuralgia Office Visit 04/30/2020 10:40a [facility] KIA Wilson G50.0 Trigeminal neuralgia M25.552 Pain in left hip Office Visit 02/05/2020 10:20a [facility] [place] Valentina Clay-Ayesha, D.O. F33.1 Major depressive disorder, r ecurrent, moderate K64.9 Unspecified hemorrhoids R21 Rash and other nonspecific s kin eruption R30.0 Dysuria N76.0 Acute vaginitis Office Visit 12/13/2019 1:30p [facility] Urban Villalobos.OLyle N39.0 Urinary tract infection, sit e not specified N76.0 Acute vaginitis F33.1 Major depressive disorder, r ecurrent, moderate Office Visit 12/03/2019 11:10a [facility] KIA Resendez N39.0 Urinary tract infection, sit e not specified S90.861A Insect bite (nonvenomous), r ight foot, initial encounter N76.0 Acute vaginitis Assessments Date Code Description Provider 05/28/2020 S90.211A Contusion of right g reat toe with damage to nail, initial encounter KIA Resendez 05/28/2020 N76.0 Acute vaginitis KIA Resendez 05/12/2020 F33.1 Major depressive disorder, recur rent, moderate Valentina Hodge, D.O. 05/12/2020 G50.0 Trigeminal neuralgia Valentina Mims, D.O. 05/08/2020 G50.0 Trigeminal neuralgia KIA Baca 04/30/2020 G50.0 Trigeminal neuralgia KIA Baca 04/30/2020 M25.552 Pain in left hip KIA Berger 02/05/2020 F33.1 Major depressive disorder, recur rent, moderate Valentina Hodge, D.O. 02/05/2020 K64.9 Unspecified hemorrhoids Valentina James D.O. 02/05/2020 R21 Rash and other nonspecific skin eruption Valentina Armstrong D.O. 02/05/2020 R30.0 Dysuria Valentina maldonado D.O. 02/05/2020 N76.0 Acute vaginitis Valentina maldonado, D.O. 12/13/2019 N39.0 Urinary tract infection, site no t specified Valentina Hodge D.O. 12/13/2019 N76.0 Acute vaginitis Valentina maldonado D.O. 12/13/2019 F33.1 Major depressive disorder, recur rent, moderate Valentina Hodge D.O. 12/03/2019 N39.0 Urinary tract infection, site no t specified KIA Resendez 12/03/2019 S90.861A Insect bite (nonvenomous), right foot, initial encounter KIA Resendez 12/03/2019 N76.0 Acute vaginitis KIA Resendez Plan of Treatment 05/28/2020 - KIA Resendez* S90.211A Contusion of right great toe with damage to nail, initial encounter* New Medication:* Keflex 500 mg - one capsule by mouth every 12 hours for 7 days * Diflucan 200 mg - take one tablet after finishing antibiotics and two days later if symptoms persist * Comments:* Keep wound clean and apply topical antibiotic creams to injured toe nail * N76.0 Acute vaginitis* New Labs:* Genital Culture And Gram Stain, Scheduled: 05/28/20 * Comments:* Diflucan sent to pharmacy. Vaginal culture is pending. Functional Status Description No Information Available Mental Status Description No Information Available Referrals Refer to Reason for Referral Status Appt Date [facility] This is a 19 year old female who is so cannot take tegretol and is suffering from trigeminal neuralgia. Please evaluate and treat. Sent [address] [place] [address] [phone] Miriam Riley M.D. 19 year old with right sided jaw pain radiating to the face, consistent with trigeminal neuralgia. Please eval and treat. Patient Notified 06/02/2020 [facility] Neurology [facility] [place] [address] [phone] Moe Gates M.D. 19 year old female with left hip pain. Please eval and treat. Sent [facility] [address] [place], [place] [address] [phone] Zhengsabino Guevara DO This is a 19 year old female with external hemorrhoid that is very bothersome to her and she would like it removed. Please evaluate and treat. Patient Notified 02/13/[address] [place] [address] [address] [place] [address] [phone]
--- OUTSIDE RECORDS SUMMARY | 2020-08-14 17:58 | CCD | Continuity of Care Document ---
Author Author Chalo POSEY M.D. Organization Unknown Address [address] [place] [address] Phone [phone] Care Team Providers Care Spearer Name Role Phone Moe Garcia AUTM [phone] Problems Active Problems Provider Date Trigeminal neuralgia Loly Posey M.D. Onset: 06/02/2020 Bilateral carpal tunnel syndrome Loly Posey M.D. Onset: 06/02/2020 Social History Type Date Description Comments Sex Unknown Tobacco Use Start: Unknown Patient has never smoked Allergies, Adverse Reactions, Alerts Description No Known Drug Allergies Medications Description No Information Available Immunizations Description No Information Available Vital Signs Date Vital Result Comment 06/02/2020 10:22am BP Systolic 115 mmHg BP Diastolic 75 mmHg Heart Rate 78 /min Respiratory Rate 14 /min Height 66 inches 5'6" Weight 201.00 lb BMI (Body Mass Index) 32.4 kg/m2 [place] Body Weight 130 lb Results Description No Information Available Procedures Description No Information Available Medical Devices Description No Information Available Encounters Type Date Location Provider Dx Diagnosis Office Visit 06/02/2020 10:00a [facility] Swati Puri G50.0 Trigeminal neuralgia G56.03 Carpal tunnel syndrome, bila teral upper limbs Assessments Date Code Description Provider 06/02/2020 G50.0 Trigeminal neuralgia Loly Posey M.D. 06/02/2020 G56.03 Carpal tunnel syndrome, bilatera l upper limbs Loly Posey M.D. Plan of Treatment Future Appointment(s):* 07/14/2020 1:45 pm - Loly Posey M.D. at [facility] Functional Status Description No Information Available Mental Status Description No Information Available Referrals Description No Information Available
--- OUTSIDE RECORDS SUMMARY | 2020-08-14 17:58 | CCD | Continuity of Care Document ---
Author Author Chalo LACEY DE Organization Unknown [place] [address] Phone [phone] Care Team Providers Care Stitcher Tape Controlled Machine Name Role Phone Valentina Armstrong D.O. AUTM Zhengsabino Ismael HANNON AUTM [phone] Moe Gates M.D. AUTM [phone] Luis Riley AUTM [phone] [facility] Neurology [facility] AUTM [phone] Problems Description No Information Available Social [...] SIG Qnty Indications Ordering Provide r Date Cephalexin 500mg Tablets take one tablet by mouth every 12 hours for ten days. 20tabs N39.0 Aquiles BoogieOLyle 07/20/2020 Diflucan 150mg Tablets one tablet day 1 then repeat in 3 days if not better 2tabs N39.0 Aquiles CummingsO. 07/20/2020 Naproxen 500mg Tablets take one tab with food twice a day 60tabs G50.0 Aquiles VillalobosOLyle 04/26 History Medications Keflex 500mg Capsules one capsule by mouth [...] F O2 % BldC Oximetry 199 % [place] Body Weight 120 lb 05/28/2020 1:30pm BP Systolic 118 mmHg BP Diastolic 80 mmHg Height 64.7 inches 5'4.70" Weight 201.12 lb BMI (Body Mass Index) 33.8 kg/m2 Heart Rate 98 /min Body Temperature 98.8 F O2 % BldC Oximetry 99 % [place] Body Weight 120 lb Results Test Acquired Date Facility Test Result H/L Range Note Inhouse Ua 07/20/2020 Inhouse Inhouse Leukocytes +++ Inhouse Nitrite negative Inhouse Urobilinogen negative Inhouse Protein ++ Inhouse PH 6 Inhouse Hemoglobin negative Inhouse Specific [place] 1.030 Inhouse Ketones ++ Inhouse Bilirubin + Inhouse Glucose negative Genital Culture And Gram Stain 05/28/[address] [id number] [phone] Gram Stain (SEE NOTE) Normal 1 Genital Culture FULL REPORT IN L <SEE NOTE> Normal 2 Laboratory test finding 02/05/[address] [address] [phone] Genital Culture FULL REPORT IN L <SEE NOTE> Normal 3 Urine Culture 02/05/2020 [facility] Outpatient Testi ng (Registration) [address] [place] [address] [phone] Urine Culture FULL REPORT IN L <SEE NOTE> Normal 4 1 FEW EPITHELIAL CELLS FEW WBCS FEW GRAM POSITIVE RODS MODERATE GRAM POSITIVE COCCI IN PAIRS AND CLUSTERS MANY GRAM NEGATIVE RODS 2 FULL REPORT IN LAB NOTES (eC [...] NEGATIVE ICR test is considered CLIDAMYCIN SENSITIVE. 3 FULL REPORT IN LAB NOTES (eC [...] NEGATIVE ICR test is considered CLIDAMYCIN SENSITIVE. 4 FULL REPORT IN LAB NOTES (eC W and Medent). SPECIMEN APPEARS CONTAMINATED Procedures Description No Information Available Medical Devices Description No Information Available Encounters Type Date Location Provider Dx Diagnosis Office Visit 07/20/2020 10:20a [facility] KIA Stokes N39.0 Urinary tract infection, sit e not specified Office Visit 05/28/2020 1:20p [facility] [place] KIA Resendez S90.211A Contusion of right great toe w damage to nail, init encntr N76.0 Acute vaginitis Office Visit 05/12/2020 11:30a [facility] Valentina Armstrong, D.O. F33.1 Major depressive disorder, r ecurrent, moderate G50.0 Trigeminal neuralgia Office Visit 05/08/2020 1:20p [facility] KIA Wilson G50.0 Trigeminal neuralgia Office Visit 04/30/2020 10:40a [facility] KIA Wilson G50.0 Trigeminal neuralgia M25.552 Pain in left hip Office Visit 02/05/2020 10:20a [facility] Valentina Armstrong D.O. F33.1 Major depressive disorder, [...] 1:00 pm - Valentina Armstrong D.O. at [facility] Functional Status Description No Information Available Mental Status Description No Information Available Referrals Refer to Reason for Referral Status Appt Date [facility] This is a 19 year old female who is so cannot take tegretol and is suffering from trigeminal neuralgia. Please evaluate and treat. Closed [address] [place] [address] [phone] Miriam Riley M.D. 19 year old with right sided jaw pain radiating to the face, consistent with trigeminal neuralgia. Please eval and treat. Closed 06/02/2020 [facility] Neurology [address] [place], [place] [id number] [phone] Moe Gates M.D. 19 year old female with left hip pain. Please eval and treat. Closed [facility] [address] [place], [place] [id number] [phone] Tanika Guevara DO This is a 19 year old female with external hemorrhoid that is very bothersome to her and she would like it removed. Please evaluate and treat. Patient Notified 02/13/[address] [address] [phone]
--- OUTSIDE RECORDS SUMMARY | 2020-08-14 17:58 | CCD | Continuity of Care Document ---
Author Author Chalo POSEY M.D. Organization Unknown Address [address] [place] [address] Phone [phone] Care Team Providers Care Oil Expeller Operator Name Role Phone Moe Garcia AUTM [phone] Problems Active Problems Provider Date Bilateral carpal tunnel syndrome Loly Posey M.D. Onset: 06/02/2020 Trigeminal neuralgia Loly Posey M.D. Onset: 06/02/2020 Social History [...] lb BMI (Body Mass Index) 32.4 kg/m2 [place] Body Weight 130 lb Results Description No Information Available Procedures Description No Information Available Medical Devices Description No Information Available Encounters Type Date Location Provider Dx Diagnosis Office Visit 06/02/2020 10:00a [facility] [place] G50.0 Trigeminal neuralgia G56.03 Carpal tunnel syndrome, bila teral upper limbs Assessments Date Code Description Provider 06/02/2020 G50.0 Trigeminal neuralgia Loly Posey M.D. 06/02/2020 G56.03 Carpal tunnel syndrome, bilatera l upper limbs Loly Posey M.D. Plan of Treatment No Information Available Functional Status Description No Information Available Mental Status Description No Information Available Referrals Description No Information Available
--- OUTSIDE RECORDS SUMMARY | 2020-08-14 17:58 | CCD | Continuity of Care Document ---
Author Author Chalo DILL MD Organization Unknown Address [address] [place] [address], [address] [place] [address] Phone [phone] Care Team Providers Care Veterinary Technician Assistant Name Role Phone Valentina Armstrong DO AUTM Problems Description No Information Available Social History Type Date Description Comments Sex Unknown ETOH Use Occasionally consumes alcohol Tobacco Use Start: Unknown Denies Smoking Allergies, Adverse Reactions, Alerts Description No Known Drug Allergies Medications Active Medications SIG Qnty Indications Ordering Provide r Date Naproxen 500mg Tablets 1 by mouth twice a day Unknown Immunizations Description No Information Available Vital Signs Date Vital Result Comment 06/01/2020 8:59am Height 66 inches 5'6" Weight 202.00 lb BMI (Body Mass Index) 32.6 kg/m2 Results Description No Information Available Procedures Date Code Description Status 05/29/2020 76663 X-Ray Hip Unilateral With Pelvis 2-3 Views Completed Medical Devices Description No Information Available Encounters Type Date Location Provider Dx Diagnosis Office Visit 05/29/2020 10:15a [facility] Aquiles Dill MD M2 5.552 Pain in left hip Assessments Date Code Description Provider 05/29/2020 M25.552 Pain in left hip Aquiles davis MD Plan of Treatment Future Appointment(s):* 07/08/2020 8:45 am - Aquiles Dill MD at [facility] 05/29/2020 - Aquiles Dill MD* M25.552 Pain in left hip* Follow up:* [facility] B[facility] f/u after MRI results with DPV Functional Status Description No Information Available Mental Status Description No Information Available Referrals Refer to Reason for Referral Status Appt Date Urban Dill MD MRI NO AUTH REQUIRED FOR MRI OF LEFT HIP ([id number]). DG Created [facility], [address] [place] [address] [phone]
--- OUTSIDE RECORDS SUMMARY | 2020-08-14 17:58 | CCD | Continuity of Care Document ---
Author Author Chalo DILL MD Organization Unknown Address [address] [place] [address], [address] [place] [address] Phone [phone] Care Team Providers Care Public Information Officer Name Role Phone Valentina Armstrong DO AUTM Problems Description No Information Available Social History Type Date Description Comments Sex Unknown Allergies, Adverse Reactions, Alerts Description No Information Available Medications Description No Information Available Immunizations Description No Information Available Vital Signs Description No Information Available Results Description No Information Available Procedures Date Code Description Status 05/29/2020 31393 X-Ray Hip Unilateral With Pelvis 2-3 Views Completed Medical Devices Description No Information Available Encounters Description No Information Available Assessments Date Code Description Provider 05/29/2020 M25.552 Pain in left hip Aquiles davis MD Plan of Treatment 05/29/2020 - [facility] Dill MD* M25.552 Pain in left hip* New Xrays:* MRI Left Hip, Ordered: 05/29/20 * Follow up:* [facility] f/u after MRI results with DPV Functional Status Description No Information Available Mental Status Description No Information Available Referrals Description No Information Available
--- OUTSIDE RECORDS SUMMARY | 2020-08-14 17:58 | CCD | Continuity of Care Document ---
Author Author [facility] Organization [facility] Address Unknown Phone Unavailable Care Team Providers Care Investigator Operator Name Role Phone Gonzalez RM WAX CUTTERRonel Unavailable Unavailable Allergies, Adverse Reactions, Alerts Substance Reaction Status Criticality No Known Allergies Active No Information Medications Medication Instructions Dosage Effective Dates (start - stop) Sta tus Comments Nexplanon 68 mg subdermal implant 68mg Subdermal Implant - No Longer Active Problems Condition Effective Dates (start - stop) Clinical Status C omments Encounter for oth general cnsl and advice on contraception Enctr srvlnc implantable subdermal contraceptive Human immunodeficiency virus [HIV] counseling Other sex counseling Encounter for oth general cnsl and advice on procreation Encounter for test, result negative Other sex counseling Encounter for oth general cnsl and advice on contraception Encounter for prescription of emergency contraception Enctr srvlnc implantable subdermal contraceptive Enctr for init prescription of implntbl subdermal contracep Encounter for test, result positive - Human immunodeficiency virus [HIV] counseling Encounter for test, result negative Enctr srvlnc implantable subdermal contraceptive Procedures Procedure Date IMPLANT REMOVAL HCS Without Test CVR Blood Pressure CVR Med.Svc. Height/Weight CVR Investigative Shopper.Svc. Contraceptive CVR Investigative Shopper.Svc. Other CVR Investigative Shopper.Svc. STI / H Results Test Name Date and Time Measure Units Reference Range Abnormal Flag St atus Comments No Information Advance Directives Directive Yes / No Effective Date File Name No Information Encounters Encounter Description Practice Location Reason(s) For Visit Diagnose s Date Provider Providers Copied on Encounter HCS Without Test [facility], [address] [place] [address], [id number], [place] tel:[phone] [facility] Implant Removal (c hief complaint) Encounter for oth general cnsl and advic e on contraceptionEnctr srvlnc implantable subdermal contraceptiveHuman immunodeficiency virus [HIV] counselingOther sex counselingEncounter for oth general cnsl and advice on procreation Gonzalez Rodney. [address] [place] [address], [id number], [place]. tel:[phone] Referring Provider: Ronel Pena, [address] [place] [address], [id number]. tel:[phone] [facility], [address] [place] [address], [id number], [place] tel:[phone] [facility] Encounter for pregn paramjit test, result negativeOther sex counselingEncounter for oth general cnsl and advice on contraceptionEncounter for prescription of emergency contraceptionEnctr srvlnc implantable subdermal contraceptiveEnctr for init prescription of implntbl subdermal contracepEncounter for test, result positive Dawit Jeffries. [address] [place] [address], [id number], [place]. tel:[phone] Referring Provider: Nesha Pastor, [address] [place], [place], [id number]. tel:[phone] [facility], [address] [place] [address], [id number], [place] tel:[phone] [facility] Human immunodeficie ncy virus [HIV] counselingEncounter for test, result negativeEnctr srvlnc implantable subdermal contraceptive Cornelius Gentile. [address] [place] [address], [id number], [place]. tel:[phone] Referring Provider: Krupa Shields, [address] [place], [place], [id number]. tel:[phone] Family History Family Member Diagnosis Age At Onset Paternal grandmother Cancer, ovarian Maternal aunt Cancer, breast Maternal aunt Cancer Immunizations Vaccine Date Status Comments No Information Payers Payer name Insurance type Covered constitution party ID Authorization(s ) [facility] [id number] [employer] PRESUMPTIVE ELIGIBILITY [id number] Social History Type Description Quantity Date Captured Comments Alcohol Use Details Unknown Caffeine Use Details Unknown Tobacco Use Status Current non-smoker Smoking Status Never smoker Non-Smoking Tobacco Use Details : No Details Available : No Details Available Sex Female Vital Signs Date / Time: Height Weight BMI Pulse Rate Blood Pressure Temperatu re Respiratory Rate Body Surface Area Head Circumference BMI percentile Pulse Ox In haled Ox 10:24 AM 66.00 in 199.40 lbs 32.18 kg/meter(2) 120/7 1 mm[Hg] Chief Complaint And Reason For Visit Most recent encounter only, dated '07/17/2020 10:25'. Implant Removal (chief complaint) Reason For Referral Reason For Referral No Information Plan Of Treatment Date Type Action Status No Information History Of Present Illness Encounter Date Complaint History Of Present I llness No Information Functional Status Date Functional Assessment No Information Medications Administered Medication Instructions Dosage Effective Dates (start - stop) Sta tus Comments No Information Instructions Date Instruction Additional Informati on No Information Assessments Type Assessment Date assessment Encounter for oth general cnsl and advic e on contraception assessment Enctr srvlnc implantable subdermal contr aceptive assessment Human immunodeficiency virus [HIV] couns eling assessment Other sex counseling assessment Encounter for oth general cnsl and advic e on procreation Goals Health Concern Goal Type Priority Status Date No Information Medical Equipment Description Device [place] Device Identifier Effective Robert es (start - stop) Status No Information Mental Status Date Cognitive Assessment Orientation - Oriented to ti me, place, person, situation.Normal Orientation Health Concerns Observation Date No Information Concern Status Date No Information Physical Examination Exam Findings Details Extremity Comments Implant palpated to left upper arm prior to removal. Vascular Normal Pulses - Dorsalis pe dis: Normal, Posterior tibial: Normal. Extremity Normal No Cyanosis. No Gene a. No calf tenderness - left lower extremity or right lower extremity. No Ulceration. No Varicosities. Homans' sign - Negative. Clubbing of fingers absent- bilateral extremities. Clubbing of toes absent- bilateral extremities. No Fistula. Neurological Normal Level of consciousne ss - Normal. Orientation - Normal. Psychiatric Normal Orientation - [place] ed to time, place, person & situation.
--- OUTSIDE RECORDS SUMMARY | 2020-08-14 17:58 | CCD | Continuity of Care Document ---
Author Author Chalo LACEY [place] Organization Unknown [place] [address] Phone [phone] Care Team Providers Care Service Center Coordinator Name Role Phone Valentina Armstrong D.O. AUTM [phone] Zhengsabino Ismael HANNON AUTM [phone] Moe Gates M.D. AUTM [phone] Luis Riley AUTM [phone] [facility] AUTM [phone] Problems Description No Information Available Social [...] F O2 % BldC Oximetry 99 % [place] Body Weight 120 lb 05/12/2020 11:19am BP Systolic 118 mmHg BP Diastolic 78 mmHg Height 64.7 inches 5'4.70" Weight 203.25 lb BMI (Body Mass Index) 34.1 kg/m2 Heart Rate 90 /min Body Temperature 97.7 F O2 % BldC Oximetry 98 % [place] Body Weight 120 lb Results Test Acquired Date Facility Test Result H/L Range Note Laboratory test finding 02/05/[address] [address] [phone] Genital Culture FULL REPORT IN L <SEE NOTE> Normal 1 Urine Culture 02/05/2020 [facility] Outpatient Testi ng (Registration) [address] [place] [address] [phone] Urine Culture FULL REPORT IN L <SEE NOTE> Normal 2 Laboratory test finding 12/13/[address] [address] [phone] Urine Culture FULL REPORT IN L <SEE NOTE> Normal 3 Genital Culture FULL REPORT IN L <SEE NOTE> Normal 4 Laboratory test finding 12/03/2019 Inhouse Inhouse Urine neg Inhouse Ua 12/03/2019 Inhouse Inhouse Leukocytes mod Inhouse Nitrite pos Inhouse Urobilinogen neg Inhouse Protein pos Inhouse PH 6.0 Inhouse Hemoglobin trace Inhouse Specific [place] 1.020 Inhouse Ketones neg Inhouse Bilirubin neg Inhouse Glucose neg Genital Culture And Gram Stain 12/03/[address] [address] [phone] Gram Stain (SEE NOTE) Normal 5 Genital Culture FULL REPORT IN L <SEE NOTE> Normal 6 Laboratory test finding 12/03/[address] [address] [phone] Urine Culture FULL REPORT IN L <SEE [...] Date Location Provider Dx Diagnosis Office Visit 05/28/2020 1:20p [facility] KIA Resendez S90.211A Contusion of right great toe w damage to nail, init encntr N76.0 Acute vaginitis Office Visit 05/12/2020 11:30a [facility] Valentina Armstrong D.O. F33.1 Major depressive disorder, r ecurrent, moderate G50.0 Trigeminal neuralgia Office Visit 05/08/2020 1:20p [facility] KIA Wilson G50.0 Trigeminal neuralgia Office Visit 04/30/2020 10:40a [facility] KIA Wilson G50.0 Trigeminal neuralgia M25.552 Pain in left hip Office Visit 02/05/2020 10:20a [facility] Valentina Armstrong D.O. F33.1 Major depressive disorder, r ecurrent, moderate K64.9 Unspecified hemorrhoids R21 Rash and other nonspecific s kin eruption R30.0 Dysuria N76.0 Acute vaginitis Office Visit 12/13/2019 1:30p [facility] Valentina Armstrong D.O. N39.0 Urinary tract infection, sit e not specified N76.0 Acute vaginitis F33.1 Major depressive disorder, r ecurrent, moderate Office Visit 12/03/2019 11:10a [facility] KIA Resendez N39.0 Urinary tract infection, sit [...] Rash and other nonspecific skin eruption Valentina Armstrong, D.O. 02/05/2020 R30.0 Dysuria Urban Vieira.O. 02/05/2020 N76.0 Acute vaginitis Valentina maldonado, D.O. 12/13/2019 N39.0 Urinary tract infection, site no t specified Valentina Hodge D.O. 12/13/2019 N76.0 Acute vaginitis Valentina maldonado, D.O. 12/13/2019 F33.1 Major depressive disorder, recur rent, moderate Valentina Hodge D.O. 12/03/2019 N39.0 Urinary tract infection, site no t specified KIA Resendez 12/03/2019 S90.861A Insect bite (nonvenomous), right foot, initial encounter KIA Resendez 12/03/2019 N76.0 Acute vaginitis KIA Resendez Plan of Treatment No Information Available Functional Status Description No Information Available Mental Status Description No Information Available Referrals Refer to Reason for Referral Status Appt Date [facility] This is a 19 year old female who is so cannot take tegretol and is suffering from trigeminal neuralgia. Please evaluate and treat. Sent [address] [place] [address] [phone] Miriam Riley M.D. 19 year old with right sided jaw pain radiating to the face, consistent with trigeminal neuralgia. Please eval and treat. Patient Notified 06/02/2020 [facility] [address] [place] [address] [phone] Moe Gates M.D. 19 year old female with left hip pain. Please eval and treat. Sent [facility] [address] [place] [address] [phone] Tanika Guevara DO This is a 19 year old female with external hemorrhoid that is very bothersome to her and she would like it removed. Please evaluate and treat. Patient Notified 02/13/[address] [address] [phone]
--- OUTSIDE RECORDS SUMMARY | 2020-08-14 17:58 | CCD | Continuity of Care Document ---
Author Author Chalo LACEY [place] Organization [place] [address] Phone [phone] Care Team Providers Care Meat Specialist Name Role Phone Valentina Armstrong D.O. AUTM Zhengsabino Ismael HANNON AUTM [phone] Moe Gates M.D. AUTM [phone] Luis Riley AUTM [phone] [facility]rology [facility] AUTM Problems Description No Information Available [...] F O2 % BldC Oximetry 199 % [place] Body Weight 120 lb 05/28/2020 1:30pm BP Systolic 118 mmHg BP Diastolic 80 mmHg Height 64.7 inches 5'4.70" Weight 201.12 lb BMI (Body Mass Index) 33.8 kg/m2 Heart Rate 98 /min Body Temperature 98.8 F O2 % BldC Oximetry 99 % [place] Body Weight 120 lb Results Test Acquired Date Facility Test Result H/L Range Note Inhouse Ua 07/20/2020 Inhouse Inhouse Leukocytes +++ Inhouse Nitrite negative Inhouse Urobilinogen negative Inhouse Protein ++ Inhouse PH 6 Inhouse Hemoglobin negative Inhouse Specific [place] 1.030 Inhouse Ketones ++ Inhouse Bilirubin + Inhouse Glucose negative Genital Culture And Gram Stain 05/28/[address] [id number] [phone] Gram Stain (SEE NOTE) Normal 1 Genital Culture FULL REPORT IN L <SEE NOTE> Normal 2 Laboratory test finding 02/05/[address] [address] [phone] Genital Culture FULL REPORT IN L <SEE NOTE> Normal 3 Urine Culture 02/05/2020 [facility] Outpatient Testi ng (Registration) [address] [place] [address] [phone] Urine Culture FULL REPORT IN L <SEE [...] Provider Dx Diagnosis Office Visit 07/20/2020 10:20a [facility] KIA Stokes N39.0 Urinary tract infection, sit e not specified Office Visit 05/28/2020 1:20p [facility] [place] KIA Resendez S90.211A Contusion of right great toe w damage to nail, init encntr N76.0 Acute vaginitis Office Visit 05/12/2020 11:30a Family [facility] Valentina Armstrong, D.O. F33.1 Major depressive disorder, r ecurrent, moderate G50.0 Trigeminal neuralgia Office Visit 05/08/2020 1:20p [facility] KIA Wilson G50.0 Trigeminal neuralgia Office Visit 04/30/2020 10:40a [facility] KIA Wilson G50.0 Trigeminal neuralgia M25.552 Pain in left hip Office Visit 02/05/2020 10:20a [facility] Valentina Armstrong D.O. F33.1 Major depressive [...] 1:00 pm - Valentina Armstrong D.O. at [facility] Functional Status Description No Information Available Mental Status Description No Information Available Referrals Refer to Reason for Referral Status Appt Date [facility] This is a 19 year old female who is so cannot take tegretol and is suffering from trigeminal neuralgia. Please evaluate and treat. Closed [address] [place] [address] [phone] Miriam Riley M.D. 19 year old with right sided jaw pain radiating to the face, consistent with trigeminal neuralgia. Please eval and treat. Closed 06/02/2020 [facility] [address] [place], [place] [id number] [phone] Moe Gates M.D. 19 year old female with left hip pain. Please eval and treat. Closed [facility] [address] [place], [place] [id number] [phone] Tanika Guevara DO This is a 19 year old female with external hemorrhoid that is very bothersome to her and she would like it removed. Please evaluate and treat. Patient Notified 02/13/[address] [address] [phone]
--- OUTSIDE RECORDS SUMMARY | 2020-08-14 17:58 | CCD | Continuity of Care Document ---
Author Author Chalo POSEY M.D. Organization Unknown Address [address] [place] [address] Phone [phone] Care Team Providers Care Sap Bw Consultant Name Role Phone Moe Garcia AUTM [phone] Problems Active Problems Provider Date Trigeminal neuralgia [...] lb BMI (Body Mass Index) 32.4 kg/m2 [place] Body Weight 130 lb Results Description No Information Available Procedures Description No Information Available Medical Devices Description No Information Available Encounters Type Date Location Provider Dx Diagnosis Office Visit 06/02/2020 10:00a [facility] Swati Puri G50.0 Trigeminal neuralgia G56.03 Carpal tunnel syndrome, bila teral upper limbs Assessments Date Code Description Provider 06/02/2020 G50.0 Trigeminal neuralgia Loly Posey M.D. 06/02/2020 G56.03 Carpal tunnel syndrome, bilatera l upper limbs Loly Posey M.D. Plan of Treatment Future Appointment(s):* 07/14/2020 1:45 pm - Loly Posey M.D. at [facility] * 06/08/2020 11:00 am - Loly Posey M.D. at [facility] Functional Status Description No Information Available Mental Status Description No Information Available Referrals Description No Information Available
--- OUTSIDE RECORDS SUMMARY | 2020-08-14 17:58 | CCD | Continuity of Care Document ---
Author Chalo Calero M.D. Organization Unknown Address [address] [place] [address] Phone [phone] Care Team Providers Care Residential Sales Representative Name Role Phone Moe Garcia AUTM [phone] Problems Active Problems Provider Date Trigeminal neuralgia [...] lb BMI (Body Mass Index) 32.4 kg/m2 [place] Body Weight 130 lb Results Description No Information Available Procedures Date Code Description Status 06/08/2020 11363 Nerve Conduction 9-10 Studies Co mpleted 06/08/2020 43101 Needle Electromyography Complete , Five Or More Muscles Studied Completed 06/08/2020 79302 Needle Electromyography Complete , Five Or More Muscles Studied Completed Medical Devices Description No Information Available Encounters Type Date Location Provider Dx Diagnosis Office Visit 06/02/2020 10:00[place] G50.0 Trigeminal neuralgia G56.03 Carpal tunnel syndrome, bila teral upper limbs Assessments Date Code Description Provider 06/08/2020 G56.03 Carpal tunnel syndrome, bilatera l upper limbs Loly Posey M.D. 06/08/2020 G56.01 Carpal tunnel syndrome, right up per limb Loly Posey M.D. 06/08/2020 G56.02 Carpal tunnel syndrome, left upp er limb Loly Posey M.D. 06/02/2020 G50.0 Trigeminal neuralgia Loly Posey M.D. 06/02/2020 G56.03 Carpal tunnel syndrome, bilatera l upper limbs Loly Posey M.D. Plan of Treatment Future Appointment(s):* 07/14/2020 1:45 pm - Loly Posey M.D. at Main office - [place] Functional Status Description No Information Available Mental Status Description No Information Available Referrals Description No Information Available
--- OUTSIDE RECORDS SUMMARY | 2020-08-14 17:58 | CCD | Continuity of Care Document ---
Author Author Chalo LACEY [place] Organization [place] [address] Phone [phone] Care Team Providers Care Sanitizer Name Role Phone Valentina Armstrong D.O. AUTM Zhengsabino Ismael HANNON AUTM [phone] Moe Gates M.D. AUTM [phone] Luis Riley AUTM [phone] [facility] AUTM Problems Description No Information Available [...] F O2 % BldC Oximetry 99 % [place] Body Weight 120 lb 05/12/2020 11:19am BP Systolic 118 mmHg BP Diastolic 78 mmHg Height 64.7 inches 5'4.70" Weight 203.25 lb BMI (Body Mass Index) 34.1 kg/m2 Heart Rate 90 /min Body Temperature 97.7 F O2 % BldC Oximetry 98 % [place] Body Weight 120 lb Results Test Acquired Date Facility Test Result H/L Range Note Genital Culture And Gram Stain 05/28/[address] [id number] [phone] Gram Stain (SEE NOTE) Normal 1 Genital Culture FULL REPORT IN L <SEE NOTE> Normal 2 Laboratory test finding 02/05/[address] [id number] [phone] Genital Culture FULL REPORT IN L <SEE NOTE> Normal 3 Urine Culture 02/05/2020 [facility] Outpatient Testi ng (Registration) [address] [place] [address] [id number] [phone] Urine Culture FULL REPORT IN L <SEE NOTE> Normal 4 Laboratory test finding 12/13/[address] 8110201 [phone] Urine Culture FULL REPORT IN L <SEE NOTE> Normal 5 Genital Culture FULL REPORT IN L <SEE NOTE> Normal 6 Laboratory test finding 12/03/2019 Inhouse Inhouse Urine neg Inhouse Ua 12/03/2019 Inhouse Inhouse Leukocytes mod Inhouse Nitrite pos Inhouse Urobilinogen neg Inhouse Protein pos Inhouse PH 6.0 Inhouse Hemoglobin trace Inhouse Specific [place] 1.020 Inhouse Ketones neg Inhouse Bilirubin neg Inhouse Glucose neg Genital Culture And Gram Stain 12/03/[address] [id number] [phone] Gram Stain (SEE NOTE) Normal 7 Genital Culture FULL REPORT IN L <SEE NOTE> Normal 8 Laboratory test finding 12/03/2019 [place] [address] [phone] Urine Culture FULL REPORT IN L <SEE NOTE> Normal 9 1 FEW EPITHELIAL CELLS FEW WBCS FEW [...] ([facility] W [facility]). SPECIMEN APPEARS CONTAMINATED 5 FULL REPORT IN LAB NOTES ([facility]). NO GROWTH 6 FULL REPORT IN LAB NOTES ([facility]). NORMAL TAYLOR PRESENT 7 FEW EPITHELIAL CELLS MANY GRAM POSITIVE RODS FEW GRAM POSITIVE COCCI IN PAIRS 8 FULL REPORT IN LAB NOTES (eC W [...] NEGATIVE ICR test is considered CLIDAMYCIN SENSITIVE. 9 FULL REPORT IN LAB NOTES ([facility]). ORGANISM 1: ESCHERICHIA COLI COLONY COUNT >100,000 [...] Provider Dx Diagnosis Office Visit 05/28/2020 1:20p Family [facility] KIA Resendez S90.211A Contusion of right great toe w damage to nail, init encntr N76.0 Acute vaginitis Office Visit 05/12/2020 11:30a [facility] Valentina Armstrong D.O. F33.1 Major depressive disorder, r ecurrent, moderate G50.0 Trigeminal neuralgia Office Visit 05/08/2020 1:20p [facility] KIA Wilson G50.0 Trigeminal neuralgia Office Visit 04/30/2020 10:40a [facility] KIA Wilson G50.0 Trigeminal neuralgia M25.552 Pain in left hip Office Visit 02/05/2020 10:20a [facility] Valentina Armstrong D.O. F33.1 Major depressive disorder, r ecurrent, moderate K64.9 Unspecified hemorrhoids R21 Rash and other nonspecific s kin eruption R30.0 Dysuria N76.0 Acute vaginitis Office Visit 12/13/2019 1:30p [facility] Valentina Clay-Ayesha, D.O. N39.0 Urinary tract infection, sit e not specified N76.0 Acute vaginitis F33.1 Major depressive disorder, r ecurrent, moderate Office Visit 12/03/2019 11:10a [facility] KIA Resendez N39.0 Urinary tract infection, sit [...] Hodge, D.O. 02/05/2020 K64.9 Unspecified hemorrhoids Valentina James, D.O. 02/05/2020 R21 Rash and other nonspecific skin eruption Valentina Armstrong, D.O. 02/05/2020 R30.0 Dysuria Valentina Williamson-Medrano rber, D.O. 02/05/2020 N76.0 Acute vaginitis Valentina Williamson-Medrano rber, D.O. 12/13/2019 N39.0 Urinary tract infection, site no t specified Valentina Hodge, D.O. 12/13/2019 N76.0 Acute vaginitis Valentina Williamson-Medrano rber, D.O. 12/13/2019 F33.1 Major depressive disorder, recur rent, moderate Valentina Williamson- Ayesha, D.O. 12/03/2019 N39.0 Urinary tract infection, site no t specified KIA Resendez 12/03/2019 S90.861A Insect bite (nonvenomous), right foot, initial encounter KIA Resendez 12/03/2019 N76.0 Acute vaginitis KIA Resendez Plan of Treatment No Information Available Functional Status Description No Information Available Mental Status Description No Information Available Referrals Refer to Reason for Referral Status Appt Date [facility] This is a 19 year old female who is so cannot take tegretol and is suffering from trigeminal neuralgia. Please evaluate and treat. Sent [address] [place] [address] [phone] Miriam Riley M.D. 19 year old with right sided jaw pain radiating to the face, consistent with trigeminal neuralgia. Please eval and treat. Patient Notified 06/02/2020 [facility] [address] [place] [address] [phone] Moe Gates M.D. 19 year old female with left hip pain. Please eval and treat. Sent [facility] [address] [place] [address] [phone] Tanika Guevara DO This is a 19 year old female with external hemorrhoid that is very bothersome to her and she would like it removed. Please evaluate and treat. Patient Notified 02/13/2020 [address] [facility] [address] [place], [place] [id number] [phone]
--- OUTSIDE RECORDS SUMMARY | 2020-08-14 17:59 | CCD ---
Author Author [facility] Organization [facility] Address Unknown Phone Unavailable Care Team Providers Care Progress Man Name Role Phone Jose, Moe PA Unavailable Unavailable Jose, Moe PA Unavailable Unavailable Jose, Moe PA Unavailable Unavailable Jose, Moe PA Unavailable Unavailable Jose, Moe PA Unavailable Unavailable Jose, Moe PA Unavailable Unavailable Jose, Moe PA Unavailable Unavailable Jose, Moe PA Unavailable Unavailable Jose, Moe PA Unavailable Unavailable Jose, Moe PA Unavailable Unavailable Jose, Moe PA Unavailable Unavailable Jose, Moe PA Unavailable Unavailable Jose, Moe PA Unavailable Unavailable Jose, Moe PA Unavailable Unavailable Jose, Moe PA Unavailable Unavailable Jose, Moe PA Unavailable Unavailable Jose, Moe PA Unavailable Unavailable Jose, Moe PA Unavailable Unavailable Jose, Moe PA Unavailable Unavailable Jose, Moe PA Unavailable Unavailable Jose, Moe PA Unavailable Unavailable Jose, Moe PA Unavailable Unavailable Jose, Moe PA Unavailable Unavailable Jose, Moe PA Unavailable Unavailable Jose, Moe PA Unavailable Unavailable Jose, Moe PA Unavailable Unavailable Jose, Moe PA Unavailable Unavailable Jose, Moe PA Unavailable Unavailable Jose, Moe PA Unavailable Unavailable Jose, Moe PA Unavailable Unavailable Jose, Moe PA Unavailable Unavailable Jose, Moe PA Unavailable Unavailable Jose, Moe PA Unavailable Unavailable Jose, Moe PA Unavailable Unavailable Jose, Moe PA Unavailable Unavailable Jose, Moe PA Unavailable Unavailable Jose, Moe PA Unavailable Unavailable Jose, Moe PA Unavailable Unavailable Jose, Moe PA Unavailable Unavailable Jose, Moe PA Unavailable Unavailable Jose, Moe PA Unavailable Unavailable Jose, Moe PA Unavailable Unavailable Jose, Moe PA Unavailable Unavailable Jose, Moe PA Unavailable Unavailable Jose, Moe PA Unavailable Unavailable Jose, Moe PA Unavailable Unavailable Jose, Moe PA Unavailable Unavailable Jose, Moe PA Unavailable Unavailable Jose, Moe PA Unavailable Unavailable Pastor, Trudy Nesha ENVIRONMENTAL SAFETY SPECIALIST Unavailable Unavailable Pastor, Trudy Nesha ENVIRONMENTAL SAFETY SPECIALIST Unavailable Unavailable Pastor, Trudy Nesha ENVIRONMENTAL SAFETY SPECIALIST Unavailable Unavailable Pastor, Trudy Nesha ENVIRONMENTAL SAFETY SPECIALIST Unavailable Unavailable Pastor, Trudy Nesha ENVIRONMENTAL SAFETY SPECIALIST Unavailable Unavailable Pastor, Trudy Nesha ENVIRONMENTAL SAFETY SPECIALIST Unavailable Unavailable ASAEL-KALLIE, LAURA DO Unavailable Unavailable ASAEL-KALLIE, LAURA DO Unavailable Unavailable ASAEL-KLALIE, LAURA DO Unavailable Unavailable ASAEL-KALLIE, LAURA DO Unavailable Unavailable ASAEL-KALLIE, LAURA DO Unavailable Unavailable ASAEL-KALLIE, LAURA DO Unavailable Unavailable ASAEL-KALLIE, LAURA DO Unavailable Unavailable ASAEL-KALLIE, LAURA DO Unavailable Unavailable ASAEL-KALLIE, LAURA DO Unavailable Unavailable ASAEL-KALLIE, LAURA DO Unavailable Unavailable ASAEL-KALLIE, LAURA DO Unavailable Unavailable ASAEL-KALLIE, LAURA DO Unavailable Unavailable ASAEL-KALLIE, LAURA DO Unavailable Unavailable ASAEL-KALLIE, LAURA DO Unavailable Unavailable ASAEL-KALLIE, LAURA DO Unavailable Unavailable ASAEL-KALLIE, LAURA DO Unavailable Unavailable ASAEL-KALLIE, LAURA DO Unavailable Unavailable ASAEL-KALLIE, LAURA DO Unavailable Unavailable ASAEL-KALLIE, LAURA DO Unavailable Unavailable ASAEL-KALLIE, LAURA DO Unavailable Unavailable ASAEL-KALLIE, LAURA DO Unavailable Unavailable ASAEL-KALLIE, LAURA DO Unavailable Unavailable ASAEL-KALLIE, LAURA DO Unavailable Unavailable ASAEL-KALLIE, LAURA DO Unavailable Unavailable ASAEL-KALLIE, LAURA DO Unavailable Unavailable ASAEL-KALLIE, LAURA DO Unavailable Unavailable ASAEL-KALLIE, LAURA DO Unavailable Unavailable ASAEL-KALLIE, LAURA DO Unavailable Unavailable ASAEL-KALLIE, LAURA DO Unavailable Unavailable ASAEL-KALLIE, LAURA DO Unavailable Unavailable ASAEL-KALLIE, LAURA DO Unavailable Unavailable ASAEL-KALLIE, LAURA DO Unavailable Unavailable ASAEL-KALLIE, LAURA DO Unavailable Unavailable ASAEL-KALLIE, LAURA DO Unavailable Unavailable ASAEL-KALLIE, LAURA DO Unavailable Unavailable ASAEL-KALLIE, LAURA DO Unavailable Unavailable ASAEL-KALLIE, LAURA DO Unavailable Unavailable ASAEL-KALILE, LAURA DO Unavailable Unavailable ASAEL-KALLIE, LAURA DO Unavailable Unavailable ASAEL-KALLIE, LAURA DO Unavailable Unavailable ASAEL-KALLIE, LAURA DO Unavailable Unavailable ASAEL-KALLIE, LAURA DO Unavailable Unavailable ASAEL-KALLIE, LAURA DO Unavailable Unavailable ASAEL-KALLIE, LAURA DO Unavailable Unavailable ASAEL-KALLIE, LAURA DO Unavailable Unavailable ASAEL-KALLIE, LAURA DO Unavailable Unavailable ASAEL-KALLIE, LAURA DO Unavailable Unavailable ASAEL-KALLIE, LAURA DO Unavailable Unavailable ASAEL-KALLIE, LAURA DO Unavailable Unavailable ASAEL-KALLIE, LAURA DO Unavailable Unavailable ASAEL-KALLIE, LAURA DO Unavailable Unavailable ASAEL-KALLIE, LAURA DO Unavailable Unavailable ASAEL-KALLIE, LAURA DO Unavailable Unavailable ASAEL-KALLIE, LAURA DO Unavailable Unavailable ASAEL-KALLIE, LAURA DO Unavailable Unavailable ASAEL-KALLIE, LAURA DO Unavailable Unavailable ASAEL-KALLIE, LAURA DO Unavailable Unavailable ASAEL-KALLIE, LAURA DO Unavailable Unavailable ASAEL-KALLIE, LAURA DO Unavailable Unavailable ASAEL-KALLIE, LAURA DO Unavailable Unavailable ASAEL-KALLIE, LAURA DO Unavailable Unavailable ASAEL-KALLIE, LAURA DO Unavailable Unavailable ASAEL-KALLIE, LAURA DO Unavailable Unavailable ASAEL-KALLIE, LAURA DO Unavailable Unavailable ASAEL-KALLIE, LAURA DO Unavailable Unavailable ASAEL-KALLIE, LAURA DO Unavailable Unavailable ASAEL-KALLIE, LAURA DO Unavailable Unavailable ASAEL-KALLIE, LAURA DO Unavailable Unavailable ASAEL-KALLIE, LAURA DO Unavailable Unavailable ASAEL-KALLIE, LAURA DO Unavailable Unavailable ASAEL-KALLIE, LAURA DO Unavailable Unavailable ASAEL-KALLIE, LAURA DO Unavailable Unavailable ASAEL-KALLIE, LAURA DO Unavailable Unavailable ASAEL-KALLIE, LAURA DO Unavailable Unavailable ASAEL-KALLIE, LAURA DO Unavailable Unavailable ASAEL-KALLIE, LAURA DO Unavailable Unavailable ASAEL-KALLIE, LAURA DO Unavailable Unavailable ASAEL-KALLIE, LAURA DO Unavailable Unavailable ASAEL-KALLIE, LAURA DO Unavailable Unavailable ASAEL-KALLIE, LAURA DO Unavailable Unavailable ASAEL-KALLIE, LAURA DO Unavailable Unavailable ASAEL-KALLIE, LAURA DO Unavailable Unavailable Urban Dill MD Unavailable Unavailable WillamUrban MD Unavailable Unavailable Urban Dill MD Unavailable Unavailable VanUrban manzanares MD Unavailable Unavailable Urban Dill MD Unavailable Unavailable Urban Dill MD Unavailable Unavailable Urban Dill MD Unavailable Unavailable Urban Dill MD Unavailable Unavailable Urban Dill MD Unavailable Unavailable Urban Dill MD Unavailable Unavailable Urban Dill MD Unavailable Unavailable Urban Dill MD Unavailable Unavailable Urban Dill MD Unavailable Unavailable Urban Dill MD Unavailable Unavailable Urban Dill MD Unavailable Unavailable Urban Dill MD Unavailable Unavailable Urban Dill MD Unavailable Unavailable Urban Dill MD Unavailable Unavailable Urban Dill MD Unavailable Unavailable Urban Dill MD Unavailable Unavailable Urban Dill MD Unavailable Unavailable Urban iDll MD Unavailable Unavailable Urban Dill MD Unavailable Unavailable Urban Dill MD Unavailable Unavailable Urban Dill MD Unavailable Unavailable Urban Dill MD Unavailable Unavailable Urban Dill MD Unavailable Unavailable Urban Dill MD Unavailable Unavailable VanmadelineamUrban MD Unavailable Unavailable Vaneenenaam, Urban Kwong MD Unavailable Unavailable Vaneenenaam, Urban Kwong MD Unavailable Unavailable Vaneenenaam, Urban Kwong MD Unavailable Unavailable Vaneenenaam, Urban Kwong MD Unavailable Unavailable Vaneenenaam, Urban Kwong MD Unavailable Unavailable Vaneenenaam, Urban Kwong MD Unavailable Unavailable Vaneenenaam, Urban Kwong MD Unavailable Unavailable Vaneenenaam, Urban Kwong MD Unavailable Unavailable Vaneenenaam, Urban Kwong MD Unavailable Unavailable Vaneenenaam, Urban Kwong MD Unavailable Unavailable Vaneenenaam, Urban Kwong MD Unavailable Unavailable Vaneenenaam, Urban Kwong MD Unavailable Unavailable Vaneenenaam, Urban Kwong MD Unavailable Unavailable Green PANTOGRAPH WATCHER PANTOGRAPH WATCHER, Ronel Unavailable Unavailable Green PANTOGRAPH WATCHER PANTOGRAPH WATCHER, Ronel Unavailable Unavailable Green PANTOGRAPH WATCHER PANTOGRAPH WATCHER, Ronel Unavailable Unavailable Fisher, J Sarita PA Unavailable Unavailable Fisher, J Sarita PA Unavailable Unavailable Fisher, J Sarita PA Unavailable Unavailable Fisher, J Sarita PA Unavailable Unavailable Fisher, J Sarita PA Unavailable Unavailable Fisher, J Sarita PA Unavailable Unavailable Fisher, J Sarita PA Unavailable Unavailable Fisher, J Sarita PA Unavailable Unavailable Fisher, J Sarita PA Unavailable Unavailable Fisher, J Sarita PA Unavailable Unavailable Fisher, J Sarita PA Unavailable Unavailable Fisher, J Sarita PA Unavailable Unavailable Fisher, J Sarita PA Unavailable Unavailable Fisher, J Sarita PA Unavailable Unavailable Fisher, J Sarita PA Unavailable Unavailable Fisher, J Sarita PA Unavailable Unavailable Fisher, J Sarita PA Unavailable Unavailable Fisher, J Sarita PA Unavailable Unavailable Fisher, J Sarita PA Unavailable Unavailable Fisher, J Sarita PA Unavailable Unavailable Fisher, J Sarita PA Unavailable Unavailable Fisher, J Sarita PA Unavailable Unavailable Loly Posey MD Unavailable Unavailable Loly Posey MD Unavailable Unavailable Loly Posey MD Unavailable Unavailable Loly Posey MD Unavailable Unavailable Loly Posey MD Unavailable Unavailable Loly Posey MD Unavailable Unavailable Loly Posey MD Unavailable Unavailable Loly Posey MD Unavailable Unavailable Loly Posey MD Unavailable Unavailable Loly Posey MD Unavailable Unavailable Loly Posey MD Unavailable Unavailable Loly Posey MD Unavailable Unavailable Loly Posey MD Unavailable Unavailable Loly Posey MD Unavailable Unavailable Loly Posey MD Unavailable Unavailable Loly Posey MD Unavailable Unavailable Loly Posey MD Unavailable Unavailable Loly Posey MD Unavailable Unavailable Loly Posey MD Unavailable Unavailable Loly Posey MD Unavailable Unavailable Ali, Loly MD Unavailable Unavailable Ali, Loly MD Unavailable Unavailable Ali, Loly MD Unavailable Unavailable Ali, Loly MD Unavailable Unavailable Ali, Loly MD Unavailable Unavailable Ali, Loly MD Unavailable Unavailable Ali, Loly MD Unavailable Unavailable Ali, Loly MD Unavailable Unavailable Ali, Loly MD Unavailable Unavailable Ali, Loly MD Unavailable Unavailable Ali, Loly MD Unavailable Unavailable Ali, Loly MD Unavailable Unavailable Ali, Loly MD Unavailable Unavailable Ali, Loly MD Unavailable Unavailable Ali, Loly MD Unavailable Unavailable Ali, Loly MD Unavailable Unavailable Ali, Loly MD Unavailable Unavailable Ali, Loly MD Unavailable Unavailable Ali, Loly MD Unavailable Unavailable Ali, Loly MD Unavailable Unavailable Ali, Loly MD Unavailable Unavailable Ali, Loly MD Unavailable Unavailable Ali, Loly MD Unavailable Unavailable Ali, Loly MD Unavailable Unavailable Ali, Loly MD Unavailable Unavailable Ali, Loly MD Unavailable Unavailable Ali, Loly MD Unavailable Unavailable Ali, Loly MD Unavailable Unavailable Ali, Loly MD Unavailable Unavailable O'crystal, A Dany PA Unavailable Unavailable O'crystal, A Dany PA Unavailable Unavailable O'crystal, A Dany PA Unavailable Unavailable O'crystal, A Dany PA Unavailable Unavailable O'crystal, A Dany PA Unavailable Unavailable O'crystal, A Dany PA Unavailable Unavailable O'crystal, A Dany PA Unavailable Unavailable O'crystal, A Dany PA Unavailable Unavailable O'crystal, A Dany PA Unavailable Unavailable O'crystal, A Dany PA Unavailable Unavailable O'crystal, A Dany PA Unavailable Unavailable O'crystal, A Dany PA Unavailable Unavailable O'crystal, A Dany PA Unavailable Unavailable O'crystal, A Dany PA Unavailable Unavailable O'crystal, A Dany PA Unavailable Unavailable O'crystal, A Dany PA Unavailable Unavailable O'crystal, A Dany PA Unavailable Unavailable O'crystal, A Dany PA Unavailable Unavailable O'crystal, A Adny PA Unavailable Unavailable O'crystal, A Dany PA Unavailable Unavailable O'crystal, A Dany PA Unavailable Unavailable O'crystal, A Dany PA Unavailable Unavailable O'crystal, A Dany PA Unavailable Unavailable O'crystal, A Dany PA Unavailable Unavailable O'crystal, A Dany PA Unavailable Unavailable O'crystal, A Dnay PA Unavailable Unavailable O'crystal, A Dany PA Unavailable Unavailable O'crystal, A Dany PA Unavailable Unavailable O'crystal, A Dany PA Unavailable Unavailable O'crystal, A Dany PA Unavailable Unavailable O'crystal, A Dany PA Unavailable Unavailable Lila'crystal, Jennifer ADAM Unavailable Unavailable Lila'crystal, Jennifer Dany ADAM Unavailable Unavailable Re-disclosure Warning The records that you are about to access may contain information from federally-assisted alcohol or drug abuse programs. If such information is present, then the following federally mandated warning applies: This information has been disclosed to you from records protected by federal confidentiality rules (42 CFR part 2). The federal rules prohibit you from making any further disclosure of this information unless further disclosure is expressly permitted by the written consent of the person to whom it pertains or as otherwise permitted by 42 CFR part 2. A general authorization for the release of medical or other information is NOT sufficient for this purpose. The Federal rules restrict any use of the information to criminally investigate or prosecute any alcohol or drug abuse patient.The records that you are about to access may contain highly sensitive health information, the redisclosure of which is protected by Article 27-F of the [facility] Public Health law. If you continue you may have access to information: Regarding HIV / AIDS; Provided by facilities licensed or operated by the [facility] Office of Mental Health; or Provided by the [facility] Office for People With Developmental Disabilities. If such information is present, then the following [facility] mandated warning applies: This information has been disclosed to you from confidential records which are protected by state law. State law prohibits you from making any further disclosure of this information without the specific written consent of the person to whom it pertains, or as otherwise permitted by law. Any unauthorized further disclosure in violation of state law may result in a fine or half-way sentence or both. A general authorization for the release of medical or other information is NOT sufficient authorization for further disc losure. Family History Family Member Name Family Member Gender Family Member Status Date o f Status Description Data Source(s) Unknown Female Diagnosis 02/21/2018 12:00:00 AM EDT [facility] ([facility]) Unknown Male Problem [facility] ([facility]) Encounters Encounter Providers Location Date Indications Data Source(s ) Outpatient Attender: LAURA CHANDRA DO [facility] 08/06/2020 01:00:00 PM EST [facility] ([facility]) Outpatient Attender: Dany ADAM [facility] 07/20/2020 09:20:00 AM EST [facility] ([facility]) HCS Without Test Attender: Ronel Roth PANTOGRAPH WATCHER PANTOGRAPH WATCHER PATRICIA [place] 07/17/2020 10:25:00 AM EST - 07/17/2020 10:25:00 AM EST Encounter for oth general cnsl and advice on procreationOther sex counselingHuman immunodeficiency virus [HIV] counselingEnctr srvlnc implantable subdermal contraceptiveEncounter for oth general cnsl and advice on contraception [facility] ([facility]) Encounter for oth general cnsl and advic e on procreation Other sex counseling Human immunodeficiency virus [HIV] couns eling Enctr srvlnc implantable subdermal contr aceptive Encounter for oth general cnsl and advic e on contraception Outpatient Attender: Loly Posey MD Main office - [place] 06/02/2020 09:00:00 AM EST [facility] ([facility]) Outpatient Attender: Urban Dill MD Physical Therap y 05/29/2020 09:15:00 AM EST [facility] ([facility]) Outpatient Attender: Dany ADAM [facility] 05/28/2020 12:20:00 PM EST [facility] ([facility]) Outpatient Attender: LAURA CHANDRA DO [facility] 05/12/2020 10:30:00 AM EST [facility] ([facility]) Outpatient Attender: Moe ADAM [facility] 05/08/2020 12:20:00 PM EST [facility] ([facility]) Outpatient Attender: Moe ADAM [facility] 04/30/2020 09:40:00 AM EST [facility] ([facility]) Outpatient Attender: LAURA CHANDRA DO [facility] 02/05/2020 10:20:00 AM EDT [facility] ([facility]) Attender: Sarita GOMEZ [place] 11/25 10:47:00 AM EDT - 12/17/2019 10:47:00 AM EDT [facility] ([facility]) Outpatient Attender: LAURA CHANDRA [facility] 12/13/2019 01:30:00 PM EDT [facility] ([facility]) Outpatient Attender: Dany ADAM [facility] 12/03/2019 11:10:00 AM EDT [facility] ([facility]) Attender: Nesha HERNANDEZP PPNCNY [place] 11/26/2019 01:15:00 PM EDT - 11/26/2019 01:15:00 PM EDT Encounter for test, result pos itiveEnctr for init prescription of implntbl subdermal contracepEnctr srvlnc implantable subdermal contraceptiveEncounter for prescription of emergency contraception Encounter for oth general cnsl and advice on contraceptionOther sex counselingEncounter for test, result negative [facility] ([facility]) Encounter for test, result pos itive Enctr for init prescription of implntbl subdermal contracep Enctr srvlnc implantable subdermal contr aceptive Encounter for prescription of emergency contraception Encounter for oth general cnsl and advic e on contraception Other sex counseling Encounter for test, result neg ative Outpatient Attender: LAURA CHANDRA [facility] 09/30/2019 01:30:00 PM EDT [facility] ([facility]) Outpatient Attender: LAURA CHANDRA [facility] 08/26/2019 09:10:00 AM EST [facility] ([facility]) Outpatient Attender: LAURA CHANDRA [facility] 07/18/2019 08:40:00 AM EST [facility] ([facility]) Medications Medication Brand Name Start Date Product Form Dose Route Admi nistrative Instructions Pharmacy Instructions Status Indications Reaction Description Data Source(s) Mupirocin 0.02 MG/MG Topical Ointment Mupirocin 08/06/2020 12:00:00 AM EST active [facility] ([facility]) Sulfamethoxazole 800 MG / Trimethoprim 160 MG Oral Tablet [B actrim] Bactrim DS 07/26/2020 12:00:00 AM EST ORAL completed [facility] ([facility]) Fluconazole 150 MG Oral Tablet [Diflucan] Diflucan 07/20/2020 1 2:00:00 AM EST completed [facility] ([facility]) Cephalexin 500 MG Oral Tablet Cephalexin 07/20/2020 12:00:00 AM EST ORAL completed [facility] ([facility]) Fluconazole 200 MG Oral Tablet [Diflucan] Diflucan 05/28/2020 1 2:00:00 AM EST completed [facility] ([facility]) Cephalexin 500 MG Oral Capsule [Keflex] Keflex 05/28/2020 12:00:0 0 AM EST ORAL completed [facility] ([facility]) Naproxen 500 MG Oral Tablet Naproxen 05/12/2020 12:00:00 AM EST active [facility] ([facility]) Injection Ketorolac Tromethamine Per 15 MG (Toradol) 05/12/2020 12:00:00 AM EST completed [facility] ([facility]) Medication administered onsite Medrol Medrol 05/08/2020 12:00:00 AM EST completed [facility] ([facility]) Injection Ketorolac Tromethamine Per 15 MG (Toradol) 05/08/2020 12:00:00 AM EST completed [facility] ([facility]) Medication administered onsite Sulfamethoxazole 800 MG / Trimethoprim 160 MG Oral Tablet [B actrim] Bactrim DS 02/07/2020 12:00:00 AM EDT ORAL completed [facility] ([facility]) Fluconazole 150 MG Oral Tablet [Diflucan] Diflucan 02/07/2020 1 2:00:00 AM EDT completed [facility] ([facility]) Triamcinolone Acetonide 1 MG/ML Topical Cream Triamcinolone Acetonide 02/05/2020 12:00:00 AM EDT completed [facility] ([facility]) Escitalopram 10 MG Oral Tablet Escitalopram Oxalate 02/05/2020 1 2:00:00 AM EDT ORAL completed [facility] ([facility]) Levofloxacin 250 MG Oral Tablet Levofloxacin 12/13/2019 12:00:00 AM E DT ORAL completed [facility] ([facility]) Bifidobacterium lactis [id number] UNT / Bifidobacterium longum [id number] UNT / Lactobacillus acidophilus [id number] UNT Oral Capsule [Florajen3] Florajen3 12/13/2019 12:00:00 AM EDT ORAL completed [facility] ([facility]) Ciprofloxacin 500 MG Oral Tablet Ciprofloxacin HCL 12/03/2019 12:00 :00 AM EDT completed [facility] ([facility]) Fluconazole 200 MG Oral Tablet [Diflucan] Diflucan 12/03/2019 1 2:00:00 AM EDT completed [facility] ([facility]) Etonogestrel 68 MG Drug Implant [Nexplanon] Nexplanon 68 mg subdermal implant Nexplanon 68 mg subdermal implant 11/26/2019 12:00:00 AM EDT completed etonogestrel 68 MG Drug Implant [Nexplanon] [facility] ([facility]) Levonorgestrel 1.5 MG Oral Tablet [Next Choice One Dose] Next Choice One Dose 1.5 mg tablet Next Choice One Dose 1.5 mg tablet 11/26/2019 12:00:00 AM EDT completed Levonorgestrel 1.5 M G Oral Tablet [Next Choice One Dose] [facility] ([facility]) Elle-Be Elle-Be 10/31/2019 12:00:00 AM EDT ORAL complet ed [facility] ([facility]) Injection Ceftriaxone Sodium Per 250 MG (Rocephin) 09/30/2019 12:00:00 AM EDT completed [facility] ([facility]) Medication administered onsite Triamcinolone Acetonide 1 MG/ML Topical Cream Triamcinolone Acetonide 09/30/2019 12:00:00 AM EDT completed [facility] ([facility]) Levofloxacin 500 MG Oral Tablet [Levaquin] Levaquin 09/29 12:00:00 AM EDT ORAL completed [facility] ([facility]) Ondansetron 8 MG Oral Tablet [Zofran] Zofran 09/30/2019 12:00:00 AM EDT completed [facility] ([facility]) Citalopram 10 MG Oral Tablet Citalopram Hydrobromide 08/26/2019 12:00:00 AM EST ORAL completed [facility] ([facility]) Hydrocortisone 25 MG/ML Topical Cream Anusol-HC 07/18/2019 12:00:00 AM EST active [facility] ([facility]) Etonogestrel 68 MG Drug Implant [Nexplanon] Nexplanon 68 mg subdermal implant Nexplanon 68 mg subdermal implant comp leted Etonogestrel 68 MG Drug Implant [Nexplanon] [facility] ([facility]) Insurance Providers Payer name Policy type / Coverage type Policy ID Covered libertarian ID Covered libertarian's relationship to ferrara Policy [place] Plan Information [facility] [id number] SP [id number] [facility] [id number] S [id number] [facility] [id number] SP [id number] [facility] [id number] SP [id number] [facility] [place] [id number] [id number] [facility] [place] [id number] 18 [id number] [facility] [address] [facility] [id number] 18 [id number] [facility] [id number] Adena Pike [facility] [id number] Self 000 [id number] [facility] - [facility]/P [id number] 18 [id number] [facility] Commercial [id number] Self 000 [id number] [facility] Commercial [id number] Self 000 [id number] SELF PAY ONLY SP [facility] Commercial [id number] Self 000 [id number] ANSI-Not a Secondary Insurance [id number] ANSI-Not a Secondary Insurance [id number] ANSI-Not a Secondary Insurance [id number] [facility] [employer] Commercial [id number] Family Dependent [id number] [employer] ? 01 ? [place] [employer] [place] UNAVAILABLE 01 UNAVAILABLE ANSI-Not a Secondary Insurance [id number] ANSI-Not a Secondary Insurance [id number] ANSI-Not a Secondary Insurance [id number] [facility] ACTIVE DUTY [id number] SP [id number] Problems, Conditions, and Diagnoses Code Display Name Description Problem Type Effective Dates Data Source(s) [id number] Bilateral carpal tunnel syndrome Bilater al carpal tunnel syndrome Problem 06/02/2020 12:00:00 AM EST [facility] ([facility]) [id number] Trigeminal neuralgia Trigeminal neuralgia Problem 06/02/2020 12:00:00 AM EST [facility] ([facility]) Surgeries/Procedures Procedure Description Date Indications Data Source(s) CVR Mac Artist.Svc. STI / H 07/17/2020 12:00:00 AM EST - 07/17/2020 12:00:00 AM EST [facility] ([facility]) CVR Mac Artist.Svc. Other 07/17/2020 12:00:00 AM EST - 2020 12:00:00 AM EST [facility] ([facility]) CVR Mac Artist.Svc. Contraceptive 07/17/2020 12 :00:00 AM EST - 07/17/2020 12:00:00 AM EST [facility] ([facility]) CVR Med.Svc. Height/Weight 07/17/2020 12 :00:00 AM EST - 07/17/2020 12:00:00 AM EST [facility] ([facility]) CVR Blood Pressure 07/17/2020 12:00:00 AM EST - 2020 12:00:00 AM EST [facility] ([facility]) HCS Without Test 07/17/2020 12:00:00 AM EST - 07/17/19 21 12:00:00 AM EST [facility] ([facility]) IMPLANT REMOVAL 07/17/2020 12:00:00 AM EST - 12:00:00 AM EST [facility] ([facility]) Needle electromyography, each extremity, with related paraspinal areas, when performed, done with nerve conduction, amplitude and latency/velocity study; complete, five or more muscles studied, innervated by three or more nerves or four or more spinal levels (list separately in addition to the code for primary procedure). 06/08/2020 12:00:00 AM EST MEDEN T ([facility] ) Needle electromyography, each extremity, with related paraspinal areas, when performed, done with nerve conduction, amplitude and latency/velocity study; complete, five or more muscles studied, innervated by three or more nerves or four or more spinal levels (list separately in addition to the code for primary procedure). 06/08/2020 12:00:00 AM EST MEDEN T ([facility] ) Nerve Conduction 9-10 Studies 06/08/2020 12:00:[address] [facility] ([facility] ) X-Ray Hip Unilateral With Pelvis 2-3 Views 05/29/2020 12:00:00 AM EST [facility] ([facility]) CVR Mac Artist.Svc. STI / H 11/26/2019 12:00:00 AM EDT - 11/26/2019 12:00:00 AM EDT [facility] ([facility]) CVR Mac Artist.Svc. Other 11/26/2019 12:00:00 AM EDT - 2019 12:00:00 AM EDT [facility] ([facility]) CVR Mac Artist.Svc. Contraceptive 11/26/2019 12 :00:00 AM EDT - 11/26/2019 12:00:00 AM EDT [facility] ([facility]) CVR Med.Svc. Method Initiation 0 12:00:00 AM EDT - 11/26/2019 12:00:00 AM EDT [facility] ([facility]) CVR Med.Svc. Height/Weight 11/26/2019 12 :00:00 AM EDT - 11/26/2019 12:00:00 AM EDT [facility] ([facility]) CVR Blood Pressure 11/26/2019 12:00:00 AM EDT - 2019 12:00:00 AM EDT [facility] ([facility]) Nexplanon 11/26/2019 12:00:00 AM EDT - 11/26/2019 1 2:00:00 AM EDT [facility] ([facility]) IMPLANT INSERTION 11/26/2019 12:00:00 AM EDT - 020 12:00:00 AM EDT [facility] ([facility]) URINE TEST 11/26/2019 12:00:00 AM EDT - 11/26/2019 12:00:00 AM EDT [facility]Gen ([facility]) Results ID Date Data Source [id number] 08/06/2020 02:10:00 PM EST [facility] ([facility]) Name Value Range Interpretation Code Description Data Chiquis rce(s) Supporting Document(s) Bacteria identified in Genital specimen by Aerobe cult ure Laboratory test result Normal (applies to non-numeric results) [facility] ([facility]) FULL REPORT IN LAB NOTES (eCW and Medent ). NORMAL TAYLOR PRESENT ID Date Data Source [id number] 08/06/2020 02:09:00 PM EST [facility] ([facility]) Name Value Range Interpretation Code Description Data Chiquis rce(s) Supporting Document(s) Laboratory test finding (navigational concept) Laboratory test result [facility] ([facility]) ID Date Data Source [id number] 08/06/2020 02:09:00 PM EST [facility] ([facility]) Name Value Range Interpretation Code Description Data Chiquis rce(s) Supporting Document(s) Chlamydia trachomatis rRNA [Presence] in Unspecified specimen by Probe and target amplification method Laboratory test result Normal (a pplies to non- numeric results) [facility] ([facility]) Neisseria gonorrhoeae rRNA [Presence] in Unspecified specimen by Probe and target amplification method Laboratory test result Normal (a pplies to non- numeric results) [facility] ([facility]) Comment Laboratory test result [facility] ([facility]) The analytical performance characteristi cs of this assay, when used to test SurePath(TM) specimens have been determined by [employer]. The modifications have not been cleared or approved by the FDA. This assay has been validated pursuant to the CLIA regulations and is used for clinical purposes. For additional information, please refer to https://education.UmBio/faq/EFL348 (This link is being provided for informa tion/ educational purposes only.) ID Date Data Source [id number] 08/06/2020 02:09:00 PM EST [facility]) Name Value Range Interpretation Code Description Data Chiquis rce(s) Supporting Document(s) Last menstrual period start date Laboratory test result Normal (applies to non-numeric results) [facility] ([facility]) None given Service comment Laboratory test result Normal (a pplies to non-numeric results) [facility] ([facility]) Clinical information Laboratory test result Norm al (applies to non-numeric results) [facility] ([facility]) Routine exam Date of previous PAP smear Laboratory test result Normal (applies to non- numeric results) [facility]) None given Date of previous biopsy Laboratory test result N ormal (applies to non-numeric results) [facility] ([facility]) None given Specimen source [Identifier] in Cervical or vaginal smear or scraping by Cyto stain Laboratory test result Normal (applies to non-numeric results) [facility] ([facility]) Cervix, Endocervix Statement of adequacy [Interpretation] o f Cervical or vaginal smear or scraping by Cyto stain Laboratory test result Normal (applies to non-nu meric results) [facility]) Satisfactory for evaluation. Endocervical/transformation zone component present. General categories [Interpretation] of C ervical or vaginal smear or scraping by Cyto stain Laboratory test result Normal (applies to non-numeric results) [facility] ([facility]) Microscopic observation [Identifier] in Cervix by Cyto stain Laboratory test result Normal (applies to non-numeric results) [facility]) Negative for intraepithelial lesion or m alignancy. Hydraulic Boom Operator who read Cyto stain of Cervical or vaginal smear or scraping Laboratory test result Normal (applies to non-numeric results) [facility] ([facility]) BH, CT(ASCP) CT screening location: [facility], [address] [place] [address]. Cytology study comment Cervical or vaginal smear or sc raping Cyto stain Laboratory test result Normal (applies to non-numeric results) [facility] ([facility]) This Pap test has been evaluated with Shout technology. Microorganism identified in Cervical or vaginal smear or scraping by Cyto stain Laboratory test result Normal (applies to non-numeric results) [facility] ([facility]) Pathologist who read Cyto stain of Cervical or vaginal smear or scraping Laboratory test result Normal (applies to non-numeric results) [facility] ([facility]) Hydraulic Boom Operator who read Cyto stain of Cervical or vaginal smear or scraping Laboratory test result Normal (applies to non-numeric results) [facility] ([facility]) Comment Laboratory test result [facility] ([facility]) EXPLANATORY NOTE: The Pap is a screening test for cervical cancer. It is not a diagnostic test and is subject to false negative and false positive results. It is most reliable when a satisfactory sample, regularly obtained, is submitted with relevant clinical findings and history, and when the Pap result is evaluated along with historic and current clinical information. ID Date Data Source [id number] 08/06/2020 02:09:00 PM EST [facility] ([facility]) Name Value Range Interpretation Code Description Data Chiquis rce(s) Supporting Document(s) Service comment Laboratory test result [facility] ([facility]) This order for age-based cervical cancer and STI screening follows ACOG guidelines(PB 168, 140, AKH152). See individual assays for performing site location. ID Date Data Source [id number] 08/06/2020 02:06:00 PM EST [facility] ([facility]) Name Value Range Interpretation Code Description Data Chiquis rce(s) Supporting Document(s) Laboratory test finding (navigational concept) Laboratory test result [facility] ([facility]) ID Date Data Source [id number] 07/31/2020 12:00:00 AM EST [facility] Simon Dill MD Patient Name: MERLYN AWAN [facility] Date of : [facility] Date of Exam: 07/31/2020BONNIE Pantoja [id number]#: Fax: [phone] EXAM: MRI HIP LEFT WITHOUT CONTRASTCLINICAL INFORMATION: Pain in left hip.No comparison.T1 and fat suppressed T2 and SPIR coronal images, sagittal fat suppressedT2 and axial T1 and fat suppressed T2 sequences were obtained.The visualized osseous structures demonstrate normal bone marrow signal.There is no bone marrow edema or occult fracture. There is no evidence ofavascular necrosis. There is no evidence of a labral tear. There is noparalabral cyst. Surrounding soft-tissue structures demonstrate no abnormalsignal. There is a normal amount of joint fluid. Visualized intrapelvicstructures are unremarkable.IMPRES AZEB:Negative MRI left hip.Accredited by the [employer] in MR.Ismael Borrero, MDDSG/slmThank you for referring MERLYN AWAN to our office. Electronically Signed - ISMAEL BORRERO MD 08/03/20 11:38 Name Value Range Interpretation Code Description Data Chiquis rce(s) Supporting Document(s) ID Date Data Source [id number] 07/20/2020 10:32:00 AM EST [facility] ([facility]) Name Value Range Interpretation Code Description Data Chiquis rce(s) Supporting Document(s) Inhouse Leukocytes Laboratory test result [facility] ([facility]) Inhouse Urobilinogen Laboratory test result [facility] ([facility]) Inhouse Protein Laboratory test result [facility] ([facility]) Inhouse Nitrite Laboratory test result [facility] ([facility]) Inhouse PH 6 [facility] ([facility]) Inhouse Hemoglobin Laboratory test result [facility] ([facility]) Inhouse Bilirubin Laboratory test result [facility] ([facility]) Inhouse Ketones Laboratory test result [facility] ([facility]) Inhouse Specific Palacios 1.030 [facility] ([facility]) Inhouse Glucose Laboratory test result [facility] ([facility]) ID Date Data Source [id number] 07/20/2020 10:18:00 AM EST [facility] ([facility]) Name Value Range Interpretation Code Description Data Chiquis rce(s) Supporting Document(s) Bacteria identified in Urine by Culture Laboratory test result Normal (applies to non-numeric results) [facility] ([facility]) FULL REPORT IN LAB NOTES (eCW and Medent ). SPECIMEN APPEARS CONTAMINATED Bacteria identified in Genital specimen by Aerobe cult ure Laboratory test result Normal (applies to non-numeric results) [facility] ([facility]) <content>FULL REPORT IN LAB NOTES (eCW a nd Medent).</content>
<content>NORMAL TAYLOR PRESENT</content>
<content></content>
<content>ORGANISM 1: STAPHYLOCOCCUS AUREUS</content>
<content></content>
<content>QUANTITY OF GROWTH MODERATE</content>
<content></content>
<content></content>
<content> ORGANISM 1: STAPHYLOCOCCUS AUREUS</content>
<content> </content>
<content>STAPHYLOCOCCUS AUREUS: REACTION</content>
<content>ICR (INDUCIBLE CC RESISTANCE) IV ICR TEST RESULT</content>
<content>TETRACYCLINE PO 250 mg qid <=1 S</content>
<content>PENICILLIN G IV 1 mu q6H >=0.5 R</content>
<content>PENICILLIN G IV 1 mu q6h >=0.5 R</content>
<content>PENICILLIN G PO 250mg q6h fasting >=0.5 R</content>
<content>TRIMETHOPRIM/SULFAMETHOXAZOLE IV 160mg TMP & 800mg SMXq6h <=10 S</content>
<content>TRIMETHOPRIM/SULFAMETHOXAZOLE PO Bactrim DS Bid <=10 S</content>
<content>ERYTHROMYCIN IV 500mg q6h <=0.25 S</content>
<content>ERYTHROMYCIN PO 500mg q6h <=0.25 S</content>
<content>GENTAMICIN IV 80mg q8h <=0.5 S</content>
<content>CLINDAMYCIN IV 600mg q6h 0.25 S</content>
<content>CLINDAMYCIN PO 150mg q6h 0.25 S</content>
<content>OXACILLIN IV 500mg q6h 0.5 S</content>
<content>VANCOMYCIN IV 500mg q8h 1 S</content>
<content>LINEZOLID (ZYVOX) IV 600MG Q12HR 2 S</content>
<content> LINEZOLID (ZYVOX) PO 600MG Q12HR 2 S</content>
<content>An isolate with a (+) POSITIVE ICR test is considered</content>
<content>CLINDAMYCIN RESISTANT; however, clindamycin may still</content>
<content>be effective in some patients.</content>
<content>An isolate with a (-) NEGATIVE ICR test is considered</content>
<content>CLIDAMYCIN SENSITIVE.</content>
<content>Oxacillin result predicts susceptibility to all penicillinase-stable</content>
<content>penicillins (Nafcillin, Dicloxacilin), Cephalosporins, Carbapenems,</content>
<content>Amoxicillin/Clavulanate & Ampicillin/Sulbactam per CSLI standards.</content>
<content></content> ID Date Data Source [id number] 07/06/2020 06:30:00 PM EST [facility] Name Value Range Interpretation Code Description Data Chiquis rce(s) Supporting Document(s) SARS coronavirus 2 RNA Not Detected [facility] This lab was ordered by [facility] and reported by [facility]. ID Date Data Source [id number] 05/28/2020 02:25:00 PM EST [facility] ([facility]) Name Value Range Interpretation Code Description Data Chiquis rce(s) Supporting Document(s) Genital Culture Laboratory test result Normal (a pplies to non-numeric results) [facility] ([facility]) <content>FULL REPORT IN LAB NOTES (eCW a nd Medent).</content>
<content>NORMAL TAYLOR PRESENT</content>
<content></content>
<content>ORGANISM 1: STREP AGALACTIAE GROUP B</content>
<content></content>
<content>QUANTITY OF GROWTH MODERATE</content>
<content></content>
<content></content>
<content> ORGANISM 1: STREP AGALACTIAE GROUP B</content>
<content> </content>
<content>STREP AGALACTIAE GROUP B: REACTION</content>
<content>ICR (INDUCIBLE CC RESISTANCE) IV ICR TEST RESULT</content>
<content>TETRACYCLINE PO 250 mg qid >=16 R</content>
<content>PENICILLIN G IV 1 mu q6h <=0.06 S</content>
<content>PENICILLIN G PO 250mg q6h fasting <=0.06 S</content>
<content>AMPICILLIN IV 500mg q6h <=0.25 S</content>
<content>AMPICILLIN PO 500mg q6h fasting <=0.25 S</content>
<content>ERYTHROMYCIN IV 500mg q6h >=8 R</content>
<content> ERYTHROMYCIN PO 500mg q6h >=8 R</content>
<content>LEVOFLOXACIN IV 500mg qd 1 S</content>
<content>LEVOFLOXACIN PO 250mg qd 1 S</content>
<content>LEVOFLOXACIN PO 500mg qd 1 S</content>
<content>VANCOMYCIN IV 500mg q8h 0.5 S</content>
<content>MOXIFLOXACIN (AVELOX) IV 400MG QD 0.12 S</content>
<content>MOXIFLOXACIN (AVELOX) PO 400MG QD 0.12 S</content>
<content>CEFTRIAXONE IV 1gm q24h <=0.12 S</content>
<content>CEFOTAXIME IV 1gm q8h <=0.12 S</content>
<content>An isolate with a (+) POSITIVE ICR test is considered</content>
<content>CLINDAMYCIN RESISTANT; however, clindamycin may still</content>
<content>be effective in some patients.</content>
<content>An isolate with a (-) NEGATIVE ICR test is considered</content>
<content>CLIDAMYCIN SENSITIVE.</content>
<content></content> Gram Stain Laboratory test result Normal (applies to non-n umeric results) [facility] FEW EPITHELIAL CELLS FEW WBCS FEW GRAM POSITIVE RODS MODERATE GRAM POSITIVE COCCI IN PAIRS AND CLUSTERS MANY GRAM NEGATIVE RODS ID Date Data Source [id number] 02/05/2020 10:33:00 AM EDT [facility]) Name Value Range Interpretation Code Description Data Chiquis rce(s) Supporting Document(s) Urine Culture Laboratory test result Normal (applies t o non-numeric results) [facility] ([facility]) FULL REPORT IN LAB NOTES (eCW and Med[facility] ). SPECIMEN APPEARS CONTAMINATED ID Date Data Source [id number] 02/05/2020 10:33:00 AM EDT [facility] ([facility]) Name Value Range Interpretation Code Description Data Chiquis rce(s) Supporting Document(s) Bacteria identified in Genital specimen by Aerobe cult ure Laboratory test result Normal (applies to non-numeric results) [facility] ([facility]) <content>FULL REPORT IN LAB NOTES (eCW a nd Medent).</content>
<content>NORMAL TAYLOR PRESENT</content>
<content></content>
<content>ORGANISM 1: STREP AGALACTIAE GROUP B</content>
<content></content>
<content>QUANTITY OF GROWTH HEAVY</content>
<content></content>
<content></content>
<content>ORG ANISM 1: STREP AGALACTIAE GROUP B</content>
<content> </content>
<content>STREP AGALACTIAE GROUP B: REACTION</content>
<content>ICR (INDUCIBLE CC RESISTANCE) IV ICR TEST RESULT</content>
<content>TETRACYCLINE PO 250 mg qid >=16 R</content>
<content>PENICILLIN G IV 1 mu q6h <=0.06 S</content>
<content>PENICILLIN G PO 250mg q6h fasting <=0.06 S</content>
<content>AMPICILLIN IV 500mg q6h <=0.25 S</content>
<content>AMPICILLIN PO 500mg q6h fasting <=0.25 S</content>
<content>ERYTHROMYCIN IV 500mg q6h >=8 R</content>
<content> ERYTHROMYCIN PO 500mg q6h >=8 R</content>
<content>LEVOFLOXACIN IV 500mg qd 1 S</content>
<content>LEVOFLOXACIN PO 250mg qd 1 S</content>
<content>LEVOFLOXACIN PO 500mg qd 1 S</content>
<content>VANCOMYCIN IV 500mg q8h 0.5 S</content>
<content>MOXIFLOXACIN (AVELOX) IV 400MG QD 0.12 S</content>
<content>MOXIFLOXACIN (AVELOX) PO 400MG QD 0.12 S</content>
<content>CEFTRIAXONE IV 1gm q24h <=0.12 S</content>
<content>CEFOTAXIME IV 1gm q8h <=0.12 S</content>
<content>An isolate with a (+) POSITIVE ICR test is considered</content>
<content>CLINDAMYCIN RESISTANT; however, clindamycin may still</content>
<content>be effective in some patients.</content>
<content>An isolate with a (-) NEGATIVE ICR test is considered</content>
<content>CLIDAMYCIN SENSITIVE.</content>
<content></content> ID Date Data Source [id number] 12/13/2019 01:45:00 PM EDT [facility] Name Value Range Interpretation Code Description Data Chiquis rce(s) Supporting Document(s) Bacteria identified in Urine by Culture Laboratory test result Normal (applies to non-numeric results) [facility] ([facility]) FULL REPORT IN LAB NOTES (eCW and Med[facility] ). NO GROWTH Bacteria identified in Genital specimen by Aerobe cult ure Laboratory test result Normal (applies to non-numeric results) [facility] ([facility]) FULL REPORT IN LAB NOTES (eCW and Medent ). NORMAL TAYLOR PRESENT ID Date Data Source [id number] 12/03/2019 11:53:00 AM EDT [facility] ([facility]) Name Value Range Interpretation Code Description Data Chiquis rce(s) Supporting Document(s) Inhouse Nitrite Laboratory test result [facility] ([facility]) Inhouse Leukocytes Laboratory test result [facility] ([facility]) Inhouse Urobilinogen Laboratory test result [facility] ([facility]) Inhouse Protein Laboratory test result [facility] ([facility]) Inhouse Hemoglobin Laboratory test result [facility] ([facility]) Inhouse PH 6.0 [facility] ([facility]) Inhouse Specific [place] 1.020 [facility] ([facility]) Inhouse Ketones Laboratory test result [facility] ([facility]) Inhouse Glucose Laboratory test result [facility] ([facility]) Inhouse Bilirubin Laboratory test result [facility] ([facility]) ID Date Data Source [id number] 12/03/2019 11:53:00 AM EDT [facility] ([facility]) Name Value Range Interpretation Code Description Data Chiquis rce(s) Supporting Document(s) Inhouse Urine Laboratory test result [facility] ([facility]) ID Date Data Source [id number] 12/03/2019 11:43:00 AM EDT [facility] ([facility]) Name Value Range Interpretation Code Description Data Chiquis rce(s) Supporting Document(s) Bacteria identified in Urine by Culture Laboratory test result Normal (applies to non-numeric results) [facility] ([facility]) <content>FULL REPORT IN LAB NOTES (eCW a nd Medent).</content>
<content></content>
<content>ORGANISM 1: ESCHERICHIA COLI</content>
<content></content>
<content>COLONY COUNT > 100,000</content>
<content></content>
<content></content>
<content>O RGANISM 1: ESCHERICHIA COLI</content>
<content></content>
<content> ESCHERICHIA COLI: REACTION</content>
<content>TRIMETHOPRIM/SULFAMETHOXAZOLE IV 160mg TMP & 800mg SMXq6h <=20 S</content>
<content> TRIMETHOPRIM/SULFAMETHOXAZOLE PO Bactrim DS Bid <=20 S</content>
<content>AMPICILLIN IV 500mg q6h 4 S</content>
<content>AMPICILLIN PO 500mg q6h fasting 4 S</content>
<content>GENTAMICIN IV 80mg q8h <=1 S</content>
<content>NITROFURANTOIN PO 100mg BID <=16 S</content>
<content>CEFAZOLIN IV 1gm q8h <=4 S</content>
<content> LEVOFLOXACIN IV 500mg qd <=0.12 S</content>
<content>LEVOFLOXACIN PO 250mg qd <=0.12 S</content>
<content>LEVOFLOXACIN PO 500mg qd <=0.12 S</content>
<content>TOBRAMYCIN IV 80mg q8h <=1 S</content>
<content>CEFTRIAXONE IV 1gm q24h <=1 S</content>
<content>CEFTAZIDIME IV 1gm q8h <=1 S</content>
<content> AMPICILLIN/SULBACTAM IV 1.5g q6h <=2 S</content>
<content>PIPERACILLIN/TAZOBACTAM IV 2.25 gm q6h <=4 S</content>
<content>AZTREONAM IV 1gm q8h <=1 S</content>
<content>ERTAPENEM IV 1gm qd <=0.5 S</content>
<content>MEROPENEM IV 1 gm q8h <=0.25 S</content>
<content>MEROPENEM IV 500 mg q8h <=0.25 S</content>
<content>TIGECYCLINE IV 50mg q12h <=0.5 S</content>
<content>CEFEPIME IV 1 gm q12h <=1 S</content>
<content>CEFEPIME IV 2 gm q12h <=1 S</content>
<content>EXTD BRD SPCTRM BETA LACTAMASE IV NEGATIVE FOR ESBL</content>
<content></content> ID Date Data Source [id number] 12/03/2019 11:43:00 AM EDT [facility] ([facility]) Name Value Range Interpretation Code Description Data Chiquis rce(s) Supporting Document(s) Gram Stain Laboratory test result Normal (applies to non-n umeric results) [facility] ([facility]) FEW EPITHELIAL CELLS MANY GRAM POSITIVE RODS FEW GRAM POSITIVE COCCI IN PAIRS Genital Culture Laboratory test result Normal (a pplies to non-numeric results) [facility] ([facility]) <content>FULL REPORT IN LAB NOTES ([facility]CW a nd [facility]).</content>
<content>NORMAL TAYLOR PRESENT</content>
<content></content>
<content>ORGANISM 1: STAPHYLOCOCCUS AUREUS</content>
<content></content>
<content>QUANTITY OF GROWTH MODERATE</content>
<content></content>
<content>ORGANISM 2: STREP AGALACTIAE GROUP B</content>
<content></content>
<content>QUANTITY OF GROWTH MODERATE</content>
<content></content>
<content></content>
<content> ORGANISM 1: STAPHYLOCOCCUS AUREUS</content>
<content>ORGANISM 2: STREP AGALACTIAE GROUP B</content>
<content></content>
<content>STAPHYLOCOCCUS AUREUS: REACTION</content>
<content>ICR (INDUCIBLE CC RESISTANCE) IV ICR TEST RESULT</content>
<content>TETRACYCLINE PO 250 mg qid <=1 S</content>
<content>PENICILLIN G IV 1 mu q6H >=0.5 R</content>
<content>PENICILLIN G IV 1 mu q6h >=0.5 R</content>
<content>PENICILLIN G PO 250mg q6h fasting >=0.5 R</content>
<content>TRIMETHOPRIM/SULFAMETHOXAZOLE IV 160mg TMP & 800mg SMXq6h <=10 S</content>
<content>TRIMETHOPRIM/SULFAMETHOXAZOLE PO Bactrim DS Bid <=10 S</content>
<content>ERYTHROMYCIN IV 500mg q6h <=0.25 S</content>
<content> ERYTHROMYCIN PO 500mg q6h <=0.25 S</content>
<content>GENTAMICIN IV 80mg q8h <=0.5 S</content>
<content>CLINDAMYCIN IV 600mg q6h 0.25 S</content>
<content>CLINDAMYCIN PO 150mg q6h 0.25 S</content>
<content>OXACILLIN IV 500mg q6h 0.5 S</content>
<content>VANCOMYCIN IV 500mg q8h 1 S</content>
<content> LINEZOLID (ZYVOX) IV 600MG Q12HR 2 S</content>
<content>LINEZOLID (ZYVOX) PO 600MG Q12HR 2 S</content>
<content>An isolate with a (+) POSITIVE ICR test is considered</content>
<content>CLINDAMYCIN RESISTANT; however, clindamycin may still</content>
<content>be effective in some patients.</content>
< content>An isolate with a (-) NEGATIVE ICR test is considered</content>
<content>CLIDAMYCIN SENSITIVE.</content>
<content>Oxacillin result predicts susceptibility to all penicillinase-stable</content>
<content>penicillins (Nafcillin, Dicloxacilin), Cephalosporins, Carbapenems,</content>
<content>Amoxicillin/Clavulanate & Ampicillin/Sulbactam per [facility] standards.</content>
<content></content>
<content>STREP AGALACTIAE GROUP B: REACTION</content>
<content>ICR (INDUCIBLE CC RESISTANCE) IV ICR TEST RESULT</content>
<content>TETRACYCLINE PO 250 mg qid >=16 R</content>
<content>PENICILLIN G IV 1 mu q6h <=0.06 S</content>
<content>PENICILLIN G PO 250mg q6h fasting <=0.06 S</content>
<content>AMPICILLIN IV 500mg q6h <=0.25 S</content>
<content>AMPICILLIN PO 500mg q6h fasting <=0.25 S</content>
<content>ERYTHROMYCIN IV 500mg q6h >=8 R</content>
<content>ERYTHROMYCIN PO 500mg q6h >=8 R</content>
<content>LEVOFLOXACIN IV 500mg qd 1 S</content>
<content>LEVOFLOXACIN PO 250mg qd 1 S</content>
<content>LEVOFLOXACIN PO 500mg qd 1 S</content>
<content>VANCOMYCIN IV 500mg q8h 0.5 S</content>
<content>MOXIFLOXACIN (AVELOX) IV 400MG QD 0.25 S</content>
<content>MOXIFLOXACIN (AVELOX) PO 400MG QD 0.25 S</content>
<content> CEFTRIAXONE IV 1gm q24h <=0.12 S</content>
<content>CEFOTAXIME IV 1gm q8h <=0.12 S</content>
<content>An isolate with a (+) POSITIVE ICR test is considered</content>
<content>CLINDAMYCIN RESISTANT; however, clindamycin may still</content>
<content>be effective in some patients.</content>
< content>An isolate with a (-) NEGATIVE ICR test is considered</content>
<content>CLIDAMYCIN SENSITIVE.</content>
<content></content> ID Date Data Source [id number] 12/03/2019 11:43:00 AM EDT [facility] Name Value Range Interpretation Code Description Data Chiquis rce(s) Supporting Document(s) Bacteria identified in Genital specimen by Aerobe cult ure Laboratory test result Normal (applies to non-numeric results) [facility] ([facility]) FEW EPITHELIAL CELLS MANY GRAM POSITIVE RODS FEW GRAM POSITIVE COCCI IN PAIRS Bacteria identified in Urine by Culture Laboratory test result Normal (applies to non-numeric results) [facility] ([facility]) <content>FULL REPORT IN LAB NOTES ([facility] a nd [facility]).</content>
<content></content>
<content>ORGANISM 1: ESCHERICHIA COLI</content>
<content></content>
<content>COLONY COUNT > 100,000</content>
<content></content>
<content></content>
<content>O RGANISM 1: ESCHERICHIA COLI</content>
<content></content>
<content> ESCHERICHIA COLI: REACTION</content>
<content>TRIMETHOPRIM/SULFAMETHOXAZOLE IV 160mg TMP & 800mg SMXq6h <=20 S</content>
<content> TRIMETHOPRIM/SULFAMETHOXAZOLE PO Bactrim DS Bid <=20 S</content>
<content>AMPICILLIN IV 500mg q6h 4 S</content>
<content>AMPICILLIN PO 500mg q6h fasting 4 S</content>
<content>GENTAMICIN IV 80mg q8h <=1 S</content>
<content>NITROFURANTOIN PO 100mg BID <=16 S</content>
<content>CEFAZOLIN IV 1gm q8h <=4 S</content>
<content> LEVOFLOXACIN IV 500mg qd <=0.12 S</content>
<content>LEVOFLOXACIN PO 250mg qd <=0.12 S</content>
<content>LEVOFLOXACIN PO 500mg qd <=0.12 S</content>
<content>TOBRAMYCIN IV 80mg q8h <=1 S</content>
<content>CEFTRIAXONE IV 1gm q24h <=1 S</content>
<content>CEFTAZIDIME IV 1gm q8h <=1 S</content>
<content> AMPICILLIN/SULBACTAM IV 1.5g q6h <=2 S</content>
<content>PIPERACILLIN/TAZOBACTAM IV 2.25 gm q6h <=4 S</content>
<content>AZTREONAM IV 1gm q8h <=1 S</content>
<content>ERTAPENEM IV 1gm qd <=0.5 S</content>
<content>MEROPENEM IV 1 gm q8h <=0.25 S</content>
<content>MEROPENEM IV 500 mg q8h <=0.25 S</content>
<content>TIGECYCLINE IV 50mg q12h <=0.5 S</content>
<content>CEFEPIME IV 1 gm q12h <=1 S</content>
<content>CEFEPIME IV 2 gm q12h <=1 S</content>
<content>EXTD BRD SPCTRM BETA LACTAMASE IV NEGATIVE FOR ESBL</content>
<content></content> ID Date Data Source [id number] 11/26/2019 01:37:46 PM EDT [facility] ([facility]) Name Value Range Interpretation Code Description Data Chiquis rce(s) Supporting Document(s) NegativeLot: [id number]: 04/25/2020 High Sensitivity Urine Test [facility] ([facility]) ID Date Data Source [id number] 11/26/2019 01:26:39 PM EDT [facility] ([facility]) Name Value Range Interpretation Code Description Data Chiquis rce(s) Supporting Document(s) PositiveLot: [id number]: 04/25/2021 High Sensitivity Urine Test [facility] ([facility]) ID Date Data Source [id number] 09/30/2019 02:42:00 PM EDT [facility] ([facility]) Name Value Range Interpretation Code Description Data Chiquis rce(s) Supporting Document(s) Inhouse Flu Laboratory test result M ED[facility]ANTHI ([facility]) ID Date Data Source [id number] 09/30/2019 02:00:00 PM EDT [facility] ([facility]) Name Value Range Interpretation Code Description Data Chiquis rce(s) Supporting Document(s) Bacteria identified in Urine by Culture Laboratory test result Normal (applies to non-numeric results) [facility]) <content>FULL REPORT IN LAB NOTES ([facility] a nd [facility]).</content>
<content></content>
<content>ORGANISM 1: ESCHERICHIA COLI</content>
<content></content>
<content>COLONY COUNT > 100,000</content>
<content></content>
<content></content>
<content>O RGANISM 1: ESCHERICHIA COLI</content>
<content></content>
<content> ESCHERICHIA COLI: REACTION</content>
<content>TRIMETHOPRIM/SULFAMETHOXAZOLE IV 160mg TMP & 800mg SMXq6h <=20 S</content>
<content> TRIMETHOPRIM/SULFAMETHOXAZOLE PO Bactrim DS Bid <=20 S</content>
<content>AMPICILLIN IV 500mg q6h 4 S</content>
<content>AMPICILLIN PO 500mg q6h fasting 4 S</content>
<content>GENTAMICIN IV 80mg q8h <=1 S</content>
<content>NITROFURANTOIN PO 100mg BID <=16 S</content>
<content>CEFAZOLIN IV 1gm q8h <=4 S</content>
<content> LEVOFLOXACIN IV 500mg qd <=0.12 S</content>
<content>LEVOFLOXACIN PO 250mg qd <=0.12 S</content>
<content>LEVOFLOXACIN PO 500mg qd <=0.12 S</content>
<content>TOBRAMYCIN IV 80mg q8h <=1 S</content>
<content>CEFTRIAXONE IV 1gm q24h <=1 S</content>
<content>CEFTAZIDIME IV 1gm q8h <=1 S</content>
<content> AMPICILLIN/SULBACTAM IV 1.5g q6h <=2 S</content>
<content>PIPERACILLIN/TAZOBACTAM IV 2.25 gm q6h <=4 S</content>
<content>AZTREONAM IV 1gm q8h <=1 S</content>
<content>ERTAPENEM IV 1gm qd <=0.5 S</content>
<content>MEROPENEM IV 1 gm q8h <=0.25 S</content>
<content>MEROPENEM IV 500 mg q8h <=0.25 S</content>
<content>TIGECYCLINE IV 50mg q12h <=0.5 S</content>
<content>CEFEPIME IV 1 gm q12h <=1 S</content>
<content>CEFEPIME IV 2 gm q12h <=1 S</content>
<content>EXTD BRD SPCTRM BETA LACTAMASE IV NEGATIVE FOR ESBL</content>
<content></content> ID Date Data Source [id number] 09/30/2019 12:43:00 PM EDT [facility] ([facility]) Name Value Range Interpretation Code Description Data Chiquis rce(s) Supporting Document(s) Inhouse Leukocytes Laboratory test result [facility] ([facility]) Inhouse Nitrite Laboratory test result [facility] ([facility]) Inhouse Urobilinogen Laboratory test result [facility] ([facility]) Inhouse Protein Laboratory test result [facility] ([facility]) Inhouse Hemoglobin Laboratory test result [facility] ([facility] Inhouse PH 5.0 [facility] ([facility]) Inhouse Specific [place] 1.015 [facility] ([facility]) Inhouse Ketones Laboratory test result [facility] ([facility]) Inhouse Bilirubin Laboratory test result [facility] ([facility] Inhouse Glucose Laboratory test result [facility] Procedure Social History Code Duration Value Status Description Data Source(s ) Smoking 08/06/2020 12:00:00 AM EST Patient has never smoked co mpleted Patient has never smoked [facility] ([facility]) 07/17/2020 12:00:00 AM EST Current non-smoker completed C urrent non-smoker [facility] ([facility]) Smoking 07/17/2020 12:00:00 AM EST Never smoker completed Never s moker [facility] ([facility]) Vital Signs ID Date Data Source UNK Name Value Range Interpretation Code Description Data Source(s) [place] body weight 120 [lb_av] 120 [lb_av] [facility] T ([facility]) Oxygen saturation in Arterial blood by Pulse oximetry 98 % 98 % [facility] ([facility]) Body temperature 97.4 [degF] 97.4 [degF] [facility] Respiratory rate 18 /min 18 /min [facility] ( [facility]) Heart rate 88 /min 88 /min [facility] ([facility]) Body mass index (BMI) [Ratio] 34.3 kg/m2 34.3 k g/m2 [facility] ([facility]) Body weight 204.00 [lb_av] 204.00 [lb_av] [facility] ([facility]) Body height 64.7 [in_i] 64.7 [in_i] [facility]) 5'4.70" Diastolic blood pressure 76 mm[Hg] 76 mm[Hg] [facility]) Systolic blood pressure 118 mm[Hg] 118 mm[Hg] M [facility] ([facility]) Eitzen body weight 120 [lb_av] 120 [lb_av] [facility] T ([facility]) Oxygen saturation in Arterial blood by Pulse oximetry 199 % 199 % [facility]) Body temperature 98.6 [degF] 98.6 [degF] [facility]) Respiratory rate 18 /min 18 /min [facility] ( [facility]) Heart rate 97 /min 97 /min [facility] ([facility]) Body mass index (BMI) [Ratio] 33.4 kg/m2 33.4 k g/m2 [facility] ([facility]) Body weight 199.00 [lb_av] 199.00 [lb_av] [facility] T ([facility]) Body height 64.7 [in_i] 64.7 [in_i] [facility] ([facility]) 5'4.70" Diastolic blood pressure 76 mm[Hg] 76 mm[Hg] [facility] ([facility]) Systolic blood pressure 122 mm[Hg] 122 mm[Hg] M [facility] ([facility]) Body mass index (BMI) [Ratio] 32.18 kg/m2 Overweight 32.18 kg/m2 [facility] ([facility]) Diastolic blood pressure 71 mm[Hg] 71 mm[Hg] [facility] ([facility]) Systolic blood pressure 120 mm[Hg] 120 mm[Hg] N [facility] ([facility]) Body weight 90.446 kg 90.446 kg [facility] ([facility]) Body height 167.64 cm 167.64 cm [facility] ([facility]) Eitzen body weight 130 [lb_av] 130 [lb_av] [facility] T ([facility] ) Body mass index (BMI) [Ratio] 32.4 kg/m2 32.4 k g/m2 [facility] ([facility] ) Body weight 201.00 [lb_av] 201.00 [lb_av] [facility] ([facility], ) Body height 66 [in_i] 66 [in_i] [facility] ([facility] ) 5'6" Respiratory rate 14 /min 14 /min [facility] ( [facility] ) Heart rate 78 /min 78 /min [facility] ([facility] ) Diastolic blood pressure 75 mm[Hg] 75 mm[Hg] [facility] ([facility] ) Systolic blood pressure 115 mm[Hg] 115 mm[Hg] M [facility]ENT ([facility] ) Body mass index (BMI) [Ratio] 32.6 kg/m2 32.6 k g/m2 [facility] ([facility]) Body weight 202.00 [lb_av] 202.00 [lb_av] [facility] T ([facility]) Body height 66 [in_i] 66 [in_i] [facility] ([facility]) 5'6" Eitzen body weight 120 [lb_av] 120 [lb_av] [facility] T ([facility]) Oxygen saturation in Arterial blood by Pulse oximetry 99 % 99 % [facility] ([facility]) Body temperature 98.8 [degF] 98.8 [degF] [facility] ([facility]) Heart rate 98 /min 98 /min [facility] ([facility]) Body mass index (BMI) [Ratio] 33.8 kg/m2 33.8 k g/m2 [facility] ([facility]) Body weight 201.12 [lb_av] 201.12 [lb_av] [facility] ([facility]) Body height 64.7 [in_i] 64.7 [in_i] [facility] ([facility]) 5'4.70" Diastolic blood pressure 80 mm[Hg] 80 mm[Hg] [facility] ([facility]) Systolic blood pressure 118 mm[Hg] 118 mm[Hg] M [facility] ([facility]) Eitzen body weight 120 [lb_av] 120 [lb_av] [facility] ([facility]) Oxygen saturation in Arterial blood by Pulse oximetry 98 % 98 % [facility] ([facility]) Body temperature 97.7 [degF] 97.7 [degF] [facility] ([facility]) Heart rate 90 /min 90 /min [facility] ([facility]) Body mass index (BMI) [Ratio] 34.1 kg/m2 34.1 k g/m2 [facility] ([facility]) Body weight 203.25 [lb_av] 203.25 [lb_av] [facility] ([facility]) Body height 64.7 [in_i] 64.7 [in_i] [facility] ([facility]) 5'4.70" Diastolic blood pressure 78 mm[Hg] 78 mm[Hg] [facility] ([facility]) Systolic blood pressure 118 mm[Hg] 118 mm[Hg] [facility] ([facility]) Eitzen body weight 120 [lb_av] 120 [lb_av] [facility] ([facility]) Oxygen saturation in Arterial blood by Pulse oximetry 97 % 97 % [facility] ([facility]) Body temperature 98.3 [degF] 98.3 [degF] [facility] ([facility]) Respiratory rate 18 /min 18 /min [facility] ( [facility]) Heart rate 94 /min 94 /min [facility] ([facility]) Body mass index (BMI) [Ratio] 34.3 kg/m2 34.3 k g[facility] Body weight 204.00 [lb_av] 204.00 [lb_av] [facility] ([facility]) Body height 64.7 [in_i] 64.7 [in_i] [facility] ([facility]) " Diastolic blood pressure 78 mm[Hg] 78 mm[Hg] [facility] ([facility]) Systolic blood pressure 124 mm[Hg] 124 mm[Hg] [facility] ([facility]) Body height 64.7 [in_i] 64.7 [in_i] [facility] ([facility]) " Diastolic blood pressure 80 mm[Hg] 80 mm[Hg] [facility] ([facility]) Systolic blood pressure 120 mm[Hg] 120 mm[Hg] [facility] ([facility]) Eitzen body weight 120 [lb_av] 120 [lb_av] [facility] ([facility]) Oxygen saturation in Arterial blood by Pulse oximetry 97 % 97 % [facility] Body temperature 97.8 [degF] 97.8 [degF] [facility] ([facility]) Respiratory rate 16 /min 16 /min [facility] ( [facility]) Heart rate 93 /min 93 /min [facility] ([facility]) Body mass index (BMI) [Ratio] 34.3 kg/m2 34.3 k g/m2 [facility] ([facility]) Body weight 204.25 [lb_av] 204.25 [lb_av] [facility] ([facility]) Eitzen body weight 120 [lb_av] 120 [lb_av] [facility] ([facility]) Oxygen saturation in Arterial blood by Pulse oximetry 99 % 99 % [facility] ([facility]) Body temperature 98.7 [degF] 98.7 [degF] [facility] ([facility]) Respiratory rate 18 /min 18 /min [facility] ( [facility]) Heart rate 91 /min 91 /min [facility] ([facility]) Body mass index (BMI) [Ratio] 34.5 kg/m2 34.5 k g/m2 [facility] ([facility]) Body weight 205.50 [lb_av] 205.50 [lb_av] [facility] ([facility]) Body height 64.7 [in_i] 64.7 [in_i] [facility] ([facility]) 5'4.70" Diastolic blood pressure 66 mm[Hg] 66 mm[Hg] [facility] ([facility]) Systolic blood pressure 114 mm[Hg] 114 mm[Hg] M [facility] ([facility]) Oxygen saturation in Arterial blood by Pulse oximetry 99 % 99 % [facility] ([facility]) Body temperature 98.6 [degF] 98.6 [degF] [facility] ([facility]) Respiratory rate 18 /min 18 /min [facility] ( [facility]) Heart rate 87 /min 87 /min [facility] ([facility]) Body mass index (BMI) [Ratio] 34.8 kg/m2 34.8 k g/m2 [facility] ([facility]) Body weight 207.00 [lb_av] 207.00 [lb_av] [facility] ([facility]) Body height 64.7 [in_i] 64.7 [in_i] [facility] ([facility]) 5'4.70" Diastolic blood pressure 84 mm[Hg] 84 mm[Hg] [facility] ([facility]) Systolic blood pressure 132 mm[Hg] 132 mm[Hg] M [facility] ([facility]) Oxygen saturation in Arterial blood by Pulse oximetry 94 % 94 % [facility] ([facility]) Body temperature 98.1 [degF] 98.1 [degF] [facility] ([facility]) Respiratory rate 18 /min 18 /min [facility] ( [facility]) Heart rate 84 /min 84 /min [facility] ([facility]) Body mass index (BMI) [Ratio] 34.9 kg/m2 34.9 k g/m2 [facility] ([facility]) Body weight 208.00 [lb_av] 208.00 [lb_av] [facility] ([facility]) Body height 64.7 [in_i] 64.7 [in_i] [facility] ([facility]) 5'4.70" Diastolic blood pressure 70 mm[Hg] 70 mm[Hg] [facility] ([facility]) Systolic blood pressure 124 mm[Hg] 124 mm[Hg] M [facility] ([facility]) Body mass index (BMI) [Ratio] 33.38 kg/m2 Overweight 33.38 kg/m2 [facility] ([facility]) Diastolic blood pressure 72 mm[Hg] 72 mm[Hg] [facility] ([facility]) Systolic blood pressure 116 mm[Hg] 116 mm[Hg] N [facility] ([facility]) Body weight 93.803 kg 93.803 kg [facility] ([facility]) Body height 167.64 cm 167.64 cm [facility] ([facility]) Oxygen saturation in Arterial blood by Pulse oximetry 99 % 99 % [facility] ([facility]) Body temperature 101.6 [degF] 101.6 [degF] [facility] NT ([facility]) Respiratory rate 22 /min 22 /min [facility] ( [facility]) Heart rate 140 /min 140 /min [facility] ([facility]) Body mass index (BMI) [Ratio] 35.4 kg/m2 35.4 k g/m2 [facility] ([facility]) Body weight 211.00 [lb_av] 211.00 [lb_av] [facility] ([facility]) Body height 64.7 [in_i] 64.7 [in_i] [facility] ([facility]) 5'4.70" Diastolic blood pressure 84 mm[Hg] 84 mm[Hg] [facility] ([facility]) Systolic blood pressure 321 mm[Hg] 321 mm[Hg] M [facility] ([facility]) Oxygen saturation in Arterial blood by Pulse oximetry 98 % 98 % [facility] ([facility]) Body temperature 98.1 [degF] 98.1 [degF] [facility] ([facility]) Respiratory rate 16 /min 16 /min [facility] ( [facility]) Heart rate 95 /min 95 /min MEDENT ([facility]) Body mass index (BMI) [Ratio] 36.1 kg/m2 36.1 k g/m2 MEDENT ([facility]) Body weight 215.12 [lb_av] 215.12 [lb_av] MEDEN T ([facility]) Body height 64.7 [in_i] 64.7 [in_i] MEDENT ([facility]) 5'4.70" Diastolic blood pressure 68 mm[Hg] 68 mm[Hg] MED[facility] ([facility]) Systolic blood pressure 100 mm[Hg] 100 mm[Hg] M EDENT ([facility]) Oxygen saturation in Arterial blood by Pulse oximetry 98 % 98 % MED[facility] ([facility]) Body temperature 97.8 [degF] 97.8 [degF] [facility] ([facility]) Respiratory rate 18 /min 18 /min MED[facility] ( [facility]) Heart rate 95 /min 95 /min MED[facility] ([facility]) Body mass index (BMI) [Ratio] 39.7 kg/m2 39.7 k g/m2 [facility] ([facility]) Body weight 236.25 [lb_av] 236.25 [lb_av] MEDEN T ([facility]) Body height 64.7 [in_i] 64.7 [in_i] DEE ([facility]) 5'4.70" Diastolic blood pressure 74 mm[Hg] 74 mm[Hg] DEE ([facility]) Systolic blood pressure 118 mm[Hg] 118 mm[Hg] M SHINE ([facility]) Patient Treatment Plan of Care Planned Activity Planned Date Details Description Data Source (s) Etonogestrel 68 MG Drug Implant [Nexplanon] 11/26/2019 12:00:00 AM EDT [facility] ([facility]) Levonorgestrel 1.5 MG Oral Tablet [Next Choice One Dos e] 11/26/2019 12:00:00 AM EDT [facility] Etonogestrel 68 MG Drug Implant [Nexplanon] [facility] ([facility])
[2020-08-14] MEDS ORDERED: OXCA300T14 (18:14)
--- OUTSIDE RECORDS SUMMARY | 2020-08-14 18:48 | CCD ---
Author Author [facility] Organization [facility] Address Unknown Phone Unavailable Care Team Providers Care Promotion Officer Name Role Phone Jose, Moe PA Unavailable [...] Unavailable Jose, Moe PA Unavailable Unavailable Jose, Ome PA Unavailable Unavailable Jose, Moe PA Unavailable [...] Moe PA Unavailable Unavailable Pastor, Trudy Nesha DETENTION ATTENDANT Unavailable Unavailable Pastor, Trudy Nesha DETENTION ATTENDANT Unavailable Unavailable Pastor, Trudy Nesha DETENTION ATTENDANT Unavailable Unavailable Pastor, Trudy Nesha DETENTION ATTENDANT Unavailable Unavailable Pastor, Trudy Nesha DETENTION ATTENDANT Unavailable Unavailable Pastor, Trudy Nesha DETENTION ATTENDANT Unavailable Unavailable ASAEL-KALLIE, LAURA DO Unavailable Unavailable [...] Vaneenenaam, Urban Kwong MD Unavailable Unavailable Green ARCHITECTURAL SUPERINTENDENT ARCHITECTURAL SUPERINTENDENT, Ronel Unavailable Unavailable Green ARCHITECTURAL SUPERINTENDENT ARCHITECTURAL SUPERINTENDENT, Ronel Unavailable Unavailable Green ARCHITECTURAL SUPERINTENDENT ARCHITECTURAL SUPERINTENDENT, Ronel Unavailable Unavailable Selma, J Sarita PA Unavailable Unavailable Selma, J Sarita PA Unavailable Unavailable Selma, J Sarita PA Unavailable Unavailable Selma, J Sarita PA Unavailable Unavailable Selma, J Sarita PA Unavailable Unavailable Selma, J Sarita PA Unavailable Unavailable Selma, J Sarita PA Unavailable Unavailable Selma, J Sarita PA Unavailable Unavailable Selma, J Sarita PA Unavailable Unavailable Selma, J Sarita PA Unavailable Unavailable Selma, J Sarita PA Unavailable Unavailable Selma, J Sarita PA Unavailable Unavailable Selma, J Sarita PA Unavailable Unavailable Selma, J Sarita PA Unavailable Unavailable Selma, J Sarita PA Unavailable Unavailable Selma, J Sarita PA Unavailable Unavailable Selma, J Sarita PA Unavailable Unavailable Selma, J Sarita PA Unavailable Unavailable Selma, J Sarita PA Unavailable Unavailable Selma, J Sarita PA Unavailable Unavailable Selma, J Sarita PA Unavailable Unavailable Selma, J Sarita PA Unavailable Unavailable Loly Posey MD Unavailable Unavailable Loly Posey MD Unavailable Unavailable Loly Posey MD Unavailable Unavailable Loly Posey MD Unavailable Unavailable Loly Posey MD Unavailable Unavailable Loly Posey MD Unavailable Unavailable Loly Posey MD Unavailable Unavailable Loly Posey MD Unavailable Unavailable Loly Posey MD Unavailable Unavailable Loly Poesy MD Unavailable Unavailable Loly Posey MD Unavailable [...] protected by Article 27-F of the [facility] Public Health law. If you continue you may have access to information: Regarding HIV / AIDS; Provided by facilities licensed or operated by the [facility] Office of Mental Health; or Provided by the [facility] Office for People With Developmental Disabilities. If such information is present, then the following [facility] mandated warning applies: This information has been [...] law may result in a fine or shelter sentence or both. A general authorization for the release of medical or other information is NOT sufficient authorization for further disc losure. Family History Family Member Name Family Member Gender Family Member Status Date o f Status Description Data Source(s) Unknown Female Diagnosis 02/21/2018 12:00:00 AM EDT [facility] ([facility]) Unknown Male Problem [facility] ([facility]) Encounters Encounter Providers Location Date Indications Data Source(s ) Outpatient Attender: LAURA CHANDRA DO [facility] 08/06/2020 01:00:00 PM EST [facility] ([facility]) Outpatient Attender: Dany ADAM [facility] 07/20/2020 09:20:00 AM EST [facility] ([facility]) HCS Without Test Attender: Ronel Roth ARCHITECTURAL SUPERINTENDENT ARCHITECTURAL SUPERINTENDENT [facility]RIC[facility] [place] 07/17/2020 10:25:00 AM EST - 07/17/2020 10:25:00 AM EST Encounter for oth general cnsl and advice on procreationOther sex counselingHuman immunodeficiency virus [HIV] counselingEnctr srvlnc implantable subdermal contraceptiveEncounter for oth general cnsl and advice on contraception [facility] ([facility]) Encounter for oth general cnsl and advic e on procreation Other sex counseling Human immunodeficiency virus [HIV] couns eling Enctr srvlnc implantable subdermal contr aceptive Encounter for oth general cnsl and advic e on contraception Outpatient Attender: Loly Posey MD Main office - [place] 06/02/2020 09:00:00 AM EST [facility] ([facility]) Outpatient Attender: Urban Dill MD Physical Therap y 05/29/2020 09:15:00 AM EST [facility] ([facility]) Outpatient Attender: Dany ADAM [facility] 05/28/2020 12:20:00 PM EST [facility] ([facility]) Outpatient Attender: LAURA CHANDRA DO [facility] 05/12/2020 10:30:00 AM EST [facility] ([facility]) Outpatient Attender: Moe ADAM [facility] 05/08/2020 12:20:00 PM EST [facility] ([facility]) Outpatient Attender: Moe ADAM [facility] 04/30/2020 09:40:00 AM EST [facility] ([facility]) Outpatient Attender: LAURA CHANDRA DO [facility] 02/05/2020 10:20:00 AM EDT [facility] ([facility]) Attender: Sarita GOMEZ [place] 11/25 10:47:00 AM EDT - 12/17/2019 10:47:00 AM EDT [facility] ([facility]) Outpatient Attender: LAURA CHANDRA [facility] 12/13/2019 01:30:00 PM EDT [facility] ([facility]) Outpatient Attender: Dany ADAM [facility] 12/03/2019 11:10:00 AM EDT [facility] ([facility]) Attender: Nesha HERNANDEZP PPNCNY [place] 11/26/2019 01:15:00 PM EDT - 11/26/2019 01:15:00 PM EDT Encounter for test, result pos itiveEnctr for init prescription of implntbl subdermal contracepEnctr srvlnc implantable subdermal contraceptiveEncounter for prescription of emergency contraception Encounter for oth general cnsl and advice on contraceptionOther sex counselingEncounter for test, result negative [facility] ([facility]) Encounter for test, result pos itive Enctr for init prescription of implntbl subdermal contracep Enctr srvlnc implantable subdermal contr aceptive Encounter for prescription of emergency contraception Encounter for oth general cnsl and advic e on contraception Other sex counseling Encounter for test, result neg ative Outpatient Attender: LAURA CHANDRA [facility] 09/30/2019 01:30:00 PM EDT [facility] ([facility]) Outpatient Attender: LAURA CHANDRA [facility] 08/26/2019 09:10:00 AM EST [facility] ([facility]) Outpatient Attender: LAURA CHANDRA [facility] 07/18/2019 08:40:00 AM EST [facility] ([facility]) Medications Medication Brand Name Start Date Product Form Dose Route Admi nistrative Instructions Pharmacy Instructions Status Indications Reaction Description Data Source(s) Mupirocin 0.02 MG/MG Topical Ointment Mupirocin 08/06/2020 12:00:00 AM EST active [facility] ([facility]) Sulfamethoxazole 800 MG / Trimethoprim 160 MG Oral Tablet [B actrim] Bactrim DS 07/26/2020 12:00:00 AM EST ORAL completed [facility] ([facility]) Fluconazole 150 MG Oral Tablet [Diflucan] Diflucan 07/20/2020 1 2:00:00 AM EST completed [facility] ([facility]) Cephalexin 500 MG Oral Tablet Cephalexin 07/20/2020 12:00:00 AM EST ORAL completed [facility] ([facility]) Fluconazole 200 MG Oral Tablet [Diflucan] Diflucan 05/28/2020 1 2:00:00 AM EST completed [facility] ([facility]) Cephalexin 500 MG Oral Capsule [Keflex] Keflex 05/28/2020 12:00:0 0 AM EST ORAL completed [facility] ([facility]) Naproxen 500 MG Oral Tablet Naproxen 05/12/2020 12:00:00 AM EST active [facility] ([facility]) Injection Ketorolac Tromethamine Per 15 MG (Toradol) 05/12/2020 12:00:00 AM EST completed [facility] ([facility]) Medication administered onsite Medrol Medrol 05/08/2020 12:00:00 AM EST completed [facility] ([facility]) Injection Ketorolac Tromethamine Per 15 MG (Toradol) 05/08/2020 12:00:00 AM EST completed [facility] ([facility]) Medication administered onsite Sulfamethoxazole 800 MG / Trimethoprim 160 MG Oral Tablet [B actrim] Bactrim DS 02/07/2020 12:00:00 AM EDT ORAL completed [facility] ([facility]) Fluconazole 150 MG Oral Tablet [Diflucan] Diflucan 02/07/2020 1 2:00:00 AM EDT completed [facility] ([facility]) Triamcinolone Acetonide 1 MG/ML Topical Cream Triamcinolone Acetonide 02/05/2020 12:00:00 AM EDT completed [facility] ([facility]) Escitalopram 10 MG Oral Tablet Escitalopram Oxalate 02/05/2020 1 2:00:00 AM EDT ORAL completed [facility] ([facility]) Levofloxacin 250 MG Oral Tablet Levofloxacin 12/13/2019 12:00:00 AM E DT ORAL completed [facility] ([facility]) Bifidobacterium lactis [id number] UNT / Bifidobacterium longum [id number] UNT / Lactobacillus acidophilus [id number] UNT Oral Capsule [Florajen3] Florajen3 12/13/2019 12:00:00 AM EDT ORAL completed [facility] ([facility]) Ciprofloxacin 500 MG Oral Tablet Ciprofloxacin HCL 12/03/2019 12:00 :00 AM EDT completed [facility] ([facility]) Fluconazole 200 MG Oral Tablet [Diflucan] Diflucan 12/03/2019 1 2:00:00 AM EDT completed [facility] ([facility]) Etonogestrel 68 MG Drug Implant [Nexplanon] Nexplanon 68 mg subdermal implant Nexplanon 68 mg subdermal implant 11/26/2019 12:00:00 AM EDT completed etonogestrel 68 MG Drug Implant [Nexplanon] [facility] ([facility]) Levonorgestrel 1.5 MG Oral Tablet [Next Choice One Dose] Next Choice One Dose 1.5 mg tablet Next Choice One Dose 1.5 mg tablet 11/26/2019 12:00:00 AM EDT completed Levonorgestrel 1.5 M G Oral Tablet [Next Choice One Dose] [facility] ([facility]) Elle-Be Elle-Be 10/31/2019 12:00:00 AM EDT ORAL complet ed [facility] ([facility]) Injection Ceftriaxone Sodium Per 250 MG (Rocephin) 09/30/2019 12:00:00 AM EDT completed [facility] ([facility]) Medication administered onsite Triamcinolone Acetonide 1 MG/ML Topical Cream Triamcinolone Acetonide 09/30/2019 12:00:00 AM EDT completed [facility] ([facility]) Levofloxacin 500 MG Oral Tablet [Levaquin] Levaquin 09/29 12:00:00 AM EDT ORAL completed [facility] ([facility]) Ondansetron 8 MG Oral Tablet [Zofran] Zofran 09/30/2019 12:00:00 AM EDT completed [facility] ([facility]) Citalopram 10 MG Oral Tablet Citalopram Hydrobromide 08/26/2019 12:00:00 AM EST ORAL completed [facility] ([facility]) Hydrocortisone 25 MG/ML Topical Cream Anusol-HC 07/18/2019 12:00:00 AM EST active [facility] ([facility]) Etonogestrel 68 MG Drug Implant [Nexplanon] Nexplanon 68 mg subdermal implant Nexplanon 68 mg subdermal implant comp leted Etonogestrel 68 MG Drug Implant [Nexplanon] [facility] ([facility]) Insurance Providers Payer name Policy type / Coverage type Policy ID Covered constitution party ID Covered constitution party's relationship to ferrara Policy [place] Plan Information [facility] [id number] SP [id number] [facility] O [id number] S [id number] [facility] [id number] SP [id number] [facility] [id number] SP [id number] [facility] [place] [id number] 18 [id number] [facility] [place] [id number] [facility] AT [facility] [place] [id number] 18 [id number] [facility] [id number] [facility] Commercial [id number] Self [id number] [facility] - O/P [id number] 18 [id number] [facility] Commercial [id number] Self [id number] [facility] Commercial [id number] Self [id number] SELF PAY ONLY SP [facility] Commercial [id number] Self [id number] ANSI-Not a Secondary Insurance [id number] ANSI-Not a Secondary Insurance [id number] ANSI-Not a Secondary Insurance [id number] [facility] [employer] Commercial [id number] Family Dependent [id number] [employer] [place] ? 01 ? [place] UNAVAILABLE 01 UNAVAILABLE ANSI-Not a Secondary Insurance [id number] ANSI-Not a Secondary Insurance [id number] ANSI-Not a Secondary Insurance [id number] [facility] ACTIVE DUTY [id number] SP [id number] Problems, Conditions, and Diagnoses Code Display Name Description Problem Type Effective Dates Data Source(s) [id number] Bilateral carpal tunnel syndrome Bilater al carpal tunnel syndrome Problem 06/02/2020 12:00:00 AM EST [facility] ([facility]) [id number] Trigeminal neuralgia Trigeminal neuralgia Problem 06/02/2020 12:00:00 AM EST [facility] ([facility]) Surgeries/Procedures Procedure Description Date Indications Data Source(s) CVR Wireless Construction Manager.Svc. STI / H 07/17/2020 12:00:00 AM EST - 07/17/2020 12:00:00 AM EST [facility] ([facility]) CVR Wireless Construction Manager.Svc. Other 07/17/2020 12:00:00 AM EST - 2020 12:00:00 AM EST [facility] ([facility]) CVR Wireless Construction Manager.Svc. Contraceptive 07/17/2020 12 :00:00 AM EST - 07/17/2020 12:00:00 AM EST [facility] ([facility]) CVR Med.Svc. Height/Weight 07/17/2020 12 :00:00 AM EST - 07/17/2020 12:00:00 AM EST [facility] ([facility]) CVR Blood Pressure 07/17/2020 12:00:00 AM EST - 2020 12:00:00 AM EST [facility] ([facility]) HCS Without Test 07/17/2020 12:00:00 AM EST - 07/17/19 21 12:00:00 AM EST [facility] ([facility]) IMPLANT REMOVAL 07/17/2020 12:00:00 AM EST - 12:00:00 AM EST [facility] ([facility]) Needle electromyography, each extremity, with related paraspinal areas, when performed, done with nerve conduction, amplitude and latency/velocity study; complete, five or more muscles studied, innervated by three or more nerves or four or more spinal levels (list separately in addition to the code for primary procedure). 06/08/2020 12:00:00 AM EST MEDEN T ([facility] ) Needle electromyography, each extremity, with related paraspinal areas, when performed, done with nerve conduction, amplitude and latency/velocity study; complete, five or more muscles studied, innervated by three or more nerves or four or more spinal levels (list separately in addition to the code for primary procedure). 06/08/2020 12:00:00 AM EST MEDEN T ([facility] ) Nerve Conduction 9-10 Studies 06/08/2020 12:00:[address] [facility] ([facility] ) X-Ray Hip Unilateral With Pelvis 2-3 Views 05/29/2020 12:00:00 AM EST [facility] ([facility]) CVR Wireless Construction Manager.Svc. STI / H 11/26/2019 12:00:00 AM EDT - 11/26/2019 12:00:00 AM EDT [facility] ([facility]) CVR Wireless Construction Manager.Svc. Other 11/26/2019 12:00:00 AM EDT - 2019 12:00:00 AM EDT [facility] ([facility]) CVR Wireless Construction Manager.Svc. Contraceptive 11/26/2019 12 :00:00 AM EDT - 11/26/2019 12:00:00 AM EDT [facility] ([facility]) CVR Med.Svc. Method Initiation 0 12:00:00 AM EDT - 11/26/2019 12:00:00 AM EDT [facility] ([facility]) CVR Med.Svc. Height/Weight 11/26/2019 12 :00:00 AM EDT - 11/26/2019 12:00:00 AM EDT [facility] ([facility]) CVR Blood Pressure 11/26/2019 12:00:00 AM EDT - 2019 12:00:00 AM EDT [facility] ([facility]) Nexplanon 11/26/2019 12:00:00 AM EDT - 11/26/2019 1 2:00:00 AM EDT [facility] ([facility]) IMPLANT INSERTION 11/26/2019 12:00:00 AM EDT - 020 12:00:00 AM EDT [facility] ([facility]) URINE TEST 11/26/2019 12:00:00 AM EDT - 11/26/2019 12:00:00 AM EDT [facility] ([facility]) Results ID Date Data Source [id number] 08/06/2020 02:10:00 PM EST [facility] ([facility]) Name Value Range Interpretation Code Description Data Chiquis rce(s) Supporting Document(s) Bacteria identified in Genital specimen by Aerobe cult ure Laboratory test result Normal (applies to non-numeric results) [facility] ([facility]) FULL REPORT IN LAB NOTES (eCW and [facility] ). NORMAL TAYLOR PRESENT ID Date Data Source [id number] 08/06/2020 02:09:00 PM EST [facility] ([facility]) Name Value Range Interpretation Code Description Data Chiquis rce(s) Supporting Document(s) Laboratory test finding (navigational concept) Laboratory test result [facility] ([facility]) ID Date Data Source [id number] 08/06/2020 02:09:00 PM EST [facility] ([facility]) Name Value Range Interpretation Code Description Data Chiquis rce(s) Supporting Document(s) Chlamydia trachomatis rRNA [Presence] in Unspecified specimen by Probe and target amplification method Laboratory test result Normal (a pplies to non- numeric results) [facility] ([facility]) Neisseria gonorrhoeae rRNA [Presence] in Unspecified specimen by Probe and target amplification method Laboratory test result Normal (a pplies to non- numeric results) [facility] ([facility]) Comment Laboratory test result [facility] ([facility]) The analytical performance characteristi cs of this assay, when used to test SurePath(TM) specimens have been determined by [employer]. The modifications have not been cleared or approved by the FDA. This assay has been validated pursuant to the CLIA regulations and is used for clinical purposes. For additional information, please refer to https://education.[employer]/faq/YWC001 (This link is being provided for informa tion/ educational purposes only.) ID Date Data Source [id number] 08/06/2020 02:09:00 PM EST [facility]) Name Value Range Interpretation Code Description Data Chiquis rce(s) Supporting Document(s) Last menstrual period start date Laboratory test result Normal (applies to non-numeric results) [facility] ([facility]) None given Service comment Laboratory test result Normal (a pplies to non-numeric results) [facility] ([facility]) Clinical information Laboratory test result Norm al (applies to non-numeric results) [facility] ([facility]) Routine exam Date of previous PAP smear Laboratory test result Normal (applies to non- numeric results) [facility]) None given Date of previous biopsy Laboratory test result N ormal (applies to non-numeric results) [facility] ([facility]) None given Specimen source [Identifier] in Cervical or vaginal smear or scraping by Cyto stain Laboratory test result Normal (applies to non-numeric results) [facility] ([facility]) Cervix, Endocervix Statement of adequacy [Interpretation] o f Cervical or vaginal smear or scraping by Cyto stain Laboratory test result Normal (applies to non-nu meric results) [facility]) Satisfactory for evaluation. Endocervical/transformation zone component present. General categories [Interpretation] of C ervical or vaginal smear or scraping by Cyto stain Laboratory test result Normal (applies to non-numeric results) [facility] ([facility]) Microscopic observation [Identifier] in Cervix by Cyto stain Laboratory test result Normal (applies to non-numeric results) [facility]) Negative for intraepithelial lesion or m alignancy. Fur Tailor who read Cyto stain of Cervical or vaginal smear or scraping Laboratory test result Normal (applies to non-numeric results) [facility] ([facility]) BH, CT(ASCP) CT screening location: [facility] [employer] [facility], [address] [place] [address]. Cytology study comment Cervical or vaginal smear or sc raping Cyto stain Laboratory test result Normal (applies to non-numeric results) [facility] ([facility]) This Pap test has been evaluated with [email or web address] technology. Microorganism identified in Cervical or vaginal smear or scraping by Cyto stain Laboratory test result Normal (applies to non-numeric results) [facility] ([facility]) Pathologist who read Cyto stain of Cervical or vaginal smear or scraping Laboratory test result Normal (applies to non-numeric results) [facility] ([facility]) Fur Tailor who read Cyto stain of Cervical or vaginal smear or scraping Laboratory test result Normal (applies to non-numeric results) [facility] ([facility]) Comment Laboratory test result [facility] ([facility]) EXPLANATORY NOTE: The Pap is a screening test for cervical cancer. It is not a diagnostic test and is subject to false negative and false positive results. It is most reliable when a satisfactory sample, regularly obtained, is submitted with relevant clinical findings and history, and when the Pap result is evaluated along with historic and current clinical information. ID Date Data Source [id number] 08/06/2020 02:09:00 PM EST [facility] ([facility]) Name Value Range Interpretation Code Description Data Chiquis rce(s) Supporting Document(s) Service comment Laboratory test result [facility] ([facility]) This order for age-based cervical cancer and STI screening follows ACOG guidelines(PB 168, 140, GEN534). See individual assays for performing site location. ID Date Data Source [id number] 08/06/2020 02:06:00 PM EST [facility] ([facility]) Name Value Range Interpretation Code Description Data Chiquis rce(s) Supporting Document(s) Laboratory test finding (navigational concept) Laboratory test result [facility] ([facility]) ID Date Data Source [id number] 07/31/2020 12:00:00 AM EST [facility] Simon Dill MD Patient Name: MERLYN AWAN [facility] Date of : [facility] Date of Exam: 07/31/2020BONNIE Pantoja [id number]#: Fax: [phone] EXAM: MRI HIP LEFT WITHOUT [...] unremarkable.IMPRES AZEB:Negative MRI left hip.Accredited by the [employer] [place] [employer] in MR.Ismael Borrero, MDDSG/slmThank you for referring MERLYN AWAN to our office. Electronically Signed - ISMAEL BORRERO MD 08/03/20 11:38 Name Value Range Interpretation Code Description Data Chiquis rce(s) Supporting Document(s) ID Date Data Source [id number] 07/20/2020 10:32:00 AM EST [facility] ([facility]) Name Value Range Interpretation Code Description Data Chiquis rce(s) Supporting Document(s) Inhouse Leukocytes Laboratory test result [facility] ([facility]) Inhouse Urobilinogen Laboratory test result [facility] ([facility]) Inhouse Protein Laboratory test result [facility] ([facility]) Inhouse Nitrite Laboratory test result [facility] ([facility]) Inhouse PH 6 [facility] ([facility]) Inhouse Hemoglobin Laboratory test result [facility] ([facility]) Inhouse Bilirubin Laboratory test result [facility] ([facility]) Inhouse Ketones Laboratory test result [facility] ([facility]) Inhouse Specific [place] 1.030 [facility] ([facility]) Inhouse Glucose Laboratory test result [facility] ([facility]) ID Date Data Source [id number] 07/20/2020 10:18:00 AM EST [facility] ([facility]) Name Value Range Interpretation Code Description Data Chiquis rce(s) Supporting Document(s) Bacteria identified in Urine by Culture Laboratory test result Normal (applies to non-numeric results) [facility] ([facility]) FULL REPORT IN LAB NOTES ([facility]CW and [facility] ). SPECIMEN APPEARS CONTAMINATED Bacteria identified in Genital specimen by Aerobe cult ure Laboratory test result Normal (applies to non-numeric results) [facility] ([facility]) <content>FULL REPORT IN LAB NOTES (eCW a [...] CSLI standards.</content>
<content></content> ID Date Data Source [id number] 07/06/2020 06:30:00 PM EST [facility] Name Value Range Interpretation Code Description Data Chiquis rce(s) Supporting Document(s) SARS coronavirus 2 RNA Not Detected [facility] [place] This lab was ordered by [facility] and reported by [facility]. ID Date Data Source [id number] 05/28/2020 02:25:00 PM EST [facility] ([facility]) Name Value Range Interpretation Code Description Data Chiquis rce(s) Supporting Document(s) Genital Culture Laboratory test result Normal (a pplies to non-numeric results) [facility] ([facility]) <content>FULL REPORT IN LAB NOTES (eCW a [...] result Normal (applies to non-n umeric results) [facility]) FEW EPITHELIAL CELLS FEW WBCS FEW GRAM POSITIVE RODS MODERATE GRAM POSITIVE COCCI IN PAIRS AND CLUSTERS MANY GRAM NEGATIVE RODS ID Date Data Source [id number] 02/05/2020 10:33:00 AM EDT [facility] Name Value Range Interpretation Code Description Data Chiquis rce(s) Supporting Document(s) Urine Culture Laboratory test result Normal (applies t o non-numeric results) [facility] ([facility]) FULL REPORT IN LAB NOTES ([facility]CW and [facility] ). SPECIMEN APPEARS CONTAMINATED ID Date Data Source [id number] 02/05/2020 10:33:00 AM EDT [facility] ([facility]) Name Value Range Interpretation Code Description Data Chiquis rce(s) Supporting Document(s) Bacteria identified in Genital specimen by Aerobe cult ure Laboratory test result Normal (applies to non-numeric results) [facility] ([facility]) <content>FULL REPORT IN LAB NOTES (eCW a [...]
<content>CLIDAMYCIN SENSITIVE.</content>
<content></content> ID Date Data Source [id number] 12/13/2019 01:45:00 PM EDT [facility] ([facility]) Name Value Range Interpretation Code Description Data Chiquis rce(s) Supporting Document(s) Bacteria identified in Urine by Culture Laboratory test result Normal (applies to non-numeric results) [facility] ([facility]) FULL REPORT IN LAB NOTES ([facility]CW and [facility] ). NO GROWTH Bacteria identified in Genital specimen by Aerobe cult ure Laboratory test result Normal (applies to non-numeric results) [facility] ([facility]) FULL REPORT IN LAB NOTES ([facility]CW and [facility] ). NORMAL TAYLOR PRESENT ID Date Data Source [id number] 12/03/2019 11:53:00 AM EDT [facility] ([facility]) Name Value Range Interpretation Code Description Data Chiquis rce(s) Supporting Document(s) Inhouse Nitrite Laboratory test result [facility] ([facility]) Inhouse Leukocytes Laboratory test result [facility] ([facility]) Inhouse Urobilinogen Laboratory test result [facility] ([facility]) Inhouse Protein Laboratory test result [facility] ([facility]) Inhouse Hemoglobin Laboratory test result [facility] ([facility]) Inhouse PH 6.0 [facility] ([facility]) Inhouse Specific [place] 1.020 [facility] ([facility]) Inhouse Ketones Laboratory test result [facility] ([facility]) Inhouse Glucose Laboratory test result [facility] ([facility]) Inhouse Bilirubin Laboratory test result [facility] ([facility]) ID Date Data Source [id number] 12/03/2019 11:53:00 AM EDT [facility] ([facility]) Name Value Range Interpretation Code Description Data Chiquis rce(s) Supporting Document(s) Inhouse Urine Laboratory test result [facility] ([facility]) ID Date Data Source [id number] 12/03/2019 11:43:00 AM EDT [facility] ([facility]) Name Value Range Interpretation Code Description Data Chiquis rce(s) Supporting Document(s) Bacteria identified in Urine by Culture Laboratory test result Normal (applies to non-numeric results) [facility] ([facility]) <content>FULL REPORT IN LAB NOTES (eCW a [...] FOR ESBL</content>
<content></content> ID Date Data Source [id number] 12/03/2019 11:43:00 AM EDT [facility] ([facility]) Name Value Range Interpretation Code Description Data Chiquis rce(s) Supporting Document(s) Gram Stain Laboratory test result Normal (applies to non-n umeric results) [facility] ([facility]) FEW EPITHELIAL CELLS MANY GRAM POSITIVE RODS FEW GRAM POSITIVE COCCI IN PAIRS Genital Culture Laboratory test result Normal (a pplies to non-numeric results) [facility] ([facility]) <content>FULL REPORT IN LAB NOTES (eCW a [...]
<content>CLIDAMYCIN SENSITIVE.</content>
<content></content> ID Date Data Source [id number] 12/03/2019 11:43:00 AM EDT [facility] ([facility]) Name Value Range Interpretation Code Description Data Chiquis rce(s) Supporting Document(s) Bacteria identified in Genital specimen by Aerobe cult ure Laboratory test result Normal (applies to non-numeric results) [facility] ([facility]) FEW EPITHELIAL CELLS MANY GRAM POSITIVE RODS FEW GRAM POSITIVE COCCI IN PAIRS Bacteria identified in Urine by Culture Laboratory test result Normal (applies to non-numeric results) [facility] ([facility]) <content>FULL REPORT IN LAB NOTES (eCW a [...] FOR ESBL</content>
<content></content> ID Date Data Source [id number] 11/26/2019 01:37:46 PM EDT [facility] ([facility]) Name Value Range Interpretation Code Description Data Chiquis rce(s) Supporting Document(s) NegativeLot: [id number]: 04/25/2020 High Sensitivity Urine Test [facility] ([facility]) ID Date Data Source [id number] 11/26/2019 01:26:39 PM EDT [facility] ([facility]) Name Value Range Interpretation Code Description Data Chiquis rce(s) Supporting Document(s) PositiveLot: [id number]: 04/25/2021 High Sensitivity Urine Test [facility] ([facility]) ID Date Data Source [id number] 09/30/2019 02:42:00 PM EDT [facility] ([facility]) Name Value Range Interpretation Code Description Data Chiquis rce(s) Supporting Document(s) Inhouse Flu Laboratory test result [facility] ([facility]) ID Date Data Source [id number] 09/30/2019 02:00:00 PM EDT [facility] ([facility]) Name Value Range Interpretation Code Description Data Chiquis rce(s) Supporting Document(s) Bacteria identified in Urine by Culture Laboratory test result Normal (applies to non-numeric results) [facility] ([facility]) <content>FULL REPORT IN LAB NOTES (eCW a [...] FOR ESBL</content>
<content></content> ID Date Data Source [id number] 09/30/2019 12:43:00 PM EDT [facility] ([facility]) Name Value Range Interpretation Code Description Data Chiquis rce(s) Supporting Document(s) Inhouse Leukocytes Laboratory test result [facility] ([facility]) Inhouse Nitrite Laboratory test result [facility] ([facility]) Inhouse Urobilinogen Laboratory test result [facility] ([facility]) Inhouse Protein Laboratory test result [facility] ([facility]) Inhouse Hemoglobin Laboratory test result [facility] ([facility]) Inhouse PH 5.0 [facility] ([facility]) Inhouse Specific [place] 1.015 [facility] ([facility]) Inhouse Ketones Laboratory test result [facility] ([facility]) Inhouse Bilirubin Laboratory test result [facility] ([facility]) Inhouse Glucose Laboratory test result [facility] ([facility]) Procedure Social History Code Duration Value Status Description Data Source(s ) Smoking 08/06/2020 12:00:00 AM EST Patient has never smoked co mpleted Patient has never smoked [facility] ([facility]) 07/17/2020 12:00:00 AM EST Current non-smoker completed C urrent non-smoker [facility] ([facility]) Smoking 07/17/2020 12:00:00 AM EST Never smoker completed Never s moker [facility] ([facility]) Vital Signs ID Date Data Source [id number] Name Value Range Interpretation Code Description Data Source(s) [place] body weight 120 [lb_av] 120 [lb_av] [facility] T ([facility]) Oxygen saturation in Arterial blood by Pulse oximetry 98 % 98 % [facility] ([facility]) Body temperature 97.4 [degF] 97.4 [degF] [facility] ([facility]) Respiratory rate 18 /min 18 /min [facility] ( [facility]) Heart rate 88 /min 88 /min [facility] ([facility]) Body mass index (BMI) [Ratio] 34.3 kg/m2 34.3 k g/m2 [facility] ([facility]) Body weight 204.00 [lb_av] 204.00 [lb_av] [facility] ([facility]) Body height 64.7 [in_i] 64.7 [in_i] [facility] ([facility]) 5'4.70" Diastolic blood pressure 76 mm[Hg] 76 mm[Hg] [facility] ([facility]) Systolic blood pressure 118 mm[Hg] 118 mm[Hg] M [facility] ([facility]) [place] body weight 120 [lb_av] 120 [lb_av] [facility] ([facility]) Oxygen saturation in Arterial blood by Pulse oximetry 199 % 199 % [facility] ([facility]) Body temperature 98.6 [degF] 98.6 [degF] [facility] ([facility]) Respiratory rate 18 /min 18 /min [facility] ( [facility]) Heart rate 97 /min 97 /min [facility] ([facility]) Body mass index (BMI) [Ratio] 33.4 kg/m2 33.4 k g/m2 [facility] ([facility]) Body weight 199.00 [lb_av] 199.00 [lb_av] [facility] ([facility]) Body height 64.7 [in_i] 64.7 [in_i] [facility] ([facility]) 5'4.70" Diastolic blood pressure 76 mm[Hg] 76 mm[Hg] [facility] ([facility]) Systolic blood pressure 122 mm[Hg] 122 mm[Hg] M [facility] ([facility]) Body mass index (BMI) [Ratio] 32.18 kg/m2 Overweight 32.18 kg/m2 [facility] ([facility]) Diastolic blood pressure 71 mm[Hg] 71 mm[Hg] [facility] ([facility]) Systolic blood pressure 120 mm[Hg] 120 mm[Hg] N [facility] ([facility]) Body weight 90.446 kg 90.446 kg [facility] ([facility]) Body height 167.64 cm 167.64 cm [facility] ([facility]) [place] body weight 130 [lb_av] 130 [lb_av] [facility] T ([facility] ) Body mass index (BMI) [Ratio] 32.4 kg/m2 32.4 k g/m2 [facility] ([facility] ) Body weight 201.00 [lb_av] 201.00 [lb_av] [facility] ([facility] ) Body height 66 [in_i] 66 [in_i] [facility] ([facility] ) 5'6" Respiratory rate 14 /min 14 /min [facility] ( [facility] ) Heart rate 78 /min 78 /min [facility] ([facility] ) Diastolic blood pressure 75 mm[Hg] 75 mm[Hg] [facility] ([facility] ) Systolic blood pressure 115 mm[Hg] 115 mm[Hg] M [facility] ([facility] ) Body mass index (BMI) [Ratio] 32.6 kg/m2 32.6 k g/m2 [facility] ([facility]) Body weight 202.00 [lb_av] 202.00 [lb_av] [facility] ([facility]) Body height 66 [in_i] 66 [in_i] [facility] ([facility]) 5'6" [place] body weight 120 [lb_av] 120 [lb_av] [facility] T ([facility]) Oxygen saturation in Arterial blood by Pulse oximetry 99 % 99 % [facility] ([facility]) Body temperature 98.8 [degF] 98.8 [degF] [facility] ([facility]) Heart rate 98 /min 98 /min [facility] ([facility]) Body mass index (BMI) [Ratio] 33.8 kg/m2 33.8 k g/m2 [facility] ([facility]) Body weight 201.12 [lb_av] 201.12 [lb_av] [facility] ([facility]) Body height 64.7 [in_i] 64.7 [in_i] [facility] ([facility]) 5'4.70" Diastolic blood pressure 80 mm[Hg] 80 mm[Hg] [facility] ([facility]) Systolic blood pressure 118 mm[Hg] 118 mm[Hg] M [facility] ([facility]) [place] body weight 120 [lb_av] 120 [lb_av] [facility] ([facility]) Oxygen saturation in Arterial blood by Pulse oximetry 98 % 98 % [facility] ([facility]) Body temperature 97.7 [degF] 97.7 [degF] [facility] ([facility]) Heart rate 90 /min 90 /min [facility] ([facility]) Body mass index (BMI) [Ratio] 34.1 kg/m2 34.1 k g/m2 [facility] ([facility]) Body weight 203.25 [lb_av] 203.25 [lb_av] [facility] T ([facility]) Body height 64.7 [in_i] 64.7 [in_i] [facility] ([facility]) 5'4.70" Diastolic blood pressure 78 mm[Hg] 78 mm[Hg] [facility] ([facility]) Systolic blood pressure 118 mm[Hg] 118 mm[Hg] [facility] ([facility]) [place] body weight 120 [lb_av] 120 [lb_av] [facility] ([facility]) Oxygen saturation in Arterial blood by Pulse oximetry 97 % 97 % [facility] ([facility]) Body temperature 98.3 [degF] 98.3 [degF] [facility] ([facility]) Respiratory rate 18 /min 18 /min [facility] ( [facility]) Heart rate 94 /min 94 /min [facility] ([facility]) Body mass index (BMI) [Ratio] 34.3 kg/m2 34.3 k g/m2 [facility] Body weight 204.00 [lb_av] 204.00 [lb_av] [facility] ([facility]) Body height 64.7 [in_i] 64.7 [in_i] [facility] ([facility]) " Diastolic blood pressure 78 mm[Hg] 78 mm[Hg] [facility] ([facility]) Systolic blood pressure 124 mm[Hg] 124 mm[Hg] [facility] ([facility]) Body height 64.7 [in_i] 64.7 [in_i] [facility] ([facility]) " Diastolic blood pressure 80 mm[Hg] 80 mm[Hg] [facility] ([facility]) Systolic blood pressure 120 mm[Hg] 120 mm[Hg] [facility] ([facility]) [place] body weight 120 [lb_av] 120 [lb_av] [facility] ([facility]) Oxygen saturation in Arterial blood by Pulse oximetry 97 % 97 % [facility] ([facility]) Body temperature 97.8 [degF] 97.8 [degF] [facility] ([facility]) Respiratory rate 16 /min 16 /min [facility] ( [facility]) Heart rate 93 /min 93 /min [facility] ([facility]) Body mass index (BMI) [Ratio] 34.3 kg/m2 34.3 k g/m2 [facility] ([facility]) Body weight 204.25 [lb_av] 204.25 [lb_av] [facility] ([facility]) [place] body weight 120 [lb_av] 120 [lb_av] [facility] ([facility]) Oxygen saturation in Arterial blood by Pulse oximetry 99 % 99 % [facility] ([facility]) Body temperature 98.7 [degF] 98.7 [degF] [facility] ([facility]) Respiratory rate 18 /min 18 /min [facility] ( [facility]) Heart rate 91 /min 91 /min [facility] ([facility]) Body mass index (BMI) [Ratio] 34.5 kg/m2 34.5 k g/m2 [facility] ([facility]) Body weight 205.50 [lb_av] 205.50 [lb_av] [facility] ([facility]) Body height 64.7 [in_i] 64.7 [in_i] [facility] ([facility]) 5'4.70" Diastolic blood pressure 66 mm[Hg] 66 mm[Hg] [facility] ([facility]) Systolic blood pressure 114 mm[Hg] 114 mm[Hg] M [facility] ([facility]) Oxygen saturation in Arterial blood by Pulse oximetry 99 % 99 % [facility] ([facility]) Body temperature 98.6 [degF] 98.6 [degF] [facility] ([facility]) Respiratory rate 18 /min 18 /min [facility] ( [facility]) Heart rate 87 /min 87 /min [facility] ([facility]) Body mass index (BMI) [Ratio] 34.8 kg/m2 34.8 k g/m2 [facility] ([facility]) Body weight 207.00 [lb_av] 207.00 [lb_av] [facility] ([facility]) Body height 64.7 [in_i] 64.7 [in_i] [facility] ([facility]) 5'4.70" Diastolic blood pressure 84 mm[Hg] 84 mm[Hg] [facility] ([facility]) Systolic blood pressure 132 mm[Hg] 132 mm[Hg] M [facility] ([facility]) Oxygen saturation in Arterial blood by Pulse oximetry 94 % 94 % [facility] ([facility]) Body temperature 98.1 [degF] 98.1 [degF] [facility] ([facility]) Respiratory rate 18 /min 18 /min [facility] ( [facility]) Heart rate 84 /min 84 /min [facility] ([facility]) Body mass index (BMI) [Ratio] 34.9 kg/m2 34.9 k g/m2 [facility] ([facility]) Body weight 208.00 [lb_av] 208.00 [lb_av] [facility] ([facility]) Body height 64.7 [in_i] 64.7 [in_i] [facility] ([facility]) 5'4.70" Diastolic blood pressure 70 mm[Hg] 70 mm[Hg] [facility] ([facility]) Systolic blood pressure 124 mm[Hg] 124 mm[Hg] M [facility] ([facility]) Body mass index (BMI) [Ratio] 33.38 kg/m2 Overweight 33.38 kg/m2 [facility] ([facility]) Diastolic blood pressure 72 mm[Hg] 72 mm[Hg] [facility] ([facility]) Systolic blood pressure 116 mm[Hg] 116 mm[Hg] N [facility] ([facility]) Body weight 93.803 kg 93.803 kg [facility] ([facility]) Body height 167.64 cm 167.64 cm [facility] ([facility]) Oxygen saturation in Arterial blood by Pulse oximetry 99 % 99 % [facility] ([facility]) Body temperature 101.6 [degF] 101.6 [degF] [facility] ([facility]) Respiratory rate 22 /min 22 /min [facility] ( [facility]) Heart rate 140 /min 140 /min [facility] ([facility]) Body mass index (BMI) [Ratio] 35.4 kg/m2 35.4 k g/m2 [facility] ([facility]) Body weight 211.00 [lb_av] 211.00 [lb_av] [facility] ([facility]) Body height 64.7 [in_i] 64.7 [in_i] [facility] ([facility]) 5'4.70" Diastolic blood pressure 84 mm[Hg] 84 mm[Hg] [facility] ([facility]) Systolic blood pressure 321 mm[Hg] 321 mm[Hg] M [facility] ([facility]) Oxygen saturation in Arterial blood by Pulse oximetry 98 % 98 % [facility] ([facility]) Body temperature 98.1 [degF] 98.1 [degF] [facility] ([facility]) Respiratory rate 16 /min 16 /min [facility] ( [facility]) Heart rate 95 /min 95 /min [facility] ([facility]) Body mass index (BMI) [Ratio] 36.1 kg/m2 36.1 k g/m2 [facility] ([facility]) Body weight 215.12 [lb_av] 215.12 [lb_av] [facility] ([facility]) Body height 64.7 [in_i] 64.7 [in_i] [facility] ([facility]) 5'4.70" Diastolic blood pressure 68 mm[Hg] 68 mm[Hg] [facility] ([facility]) Systolic blood pressure 100 mm[Hg] 100 mm[Hg] M [facility] ([facility]) Oxygen saturation in Arterial blood by Pulse oximetry 98 % 98 % [facility] ([facility]) Body temperature 97.8 [degF] 97.8 [degF] [facility] ([facility]) Respiratory rate 18 /min 18 /min [facility] ( [facility]) Heart rate 95 /min 95 /min [facility] ([facility]) Body mass index (BMI) [Ratio] 39.7 kg/m2 39.7 k g/m2 [facility] ([facility]) Body weight 236.25 [lb_av] 236.25 [lb_av] [facility] ([facility]) Body height 64.7 [in_i] 64.7 [in_i] [facility] ([facility]) 5'4.70" Diastolic blood pressure 74 mm[Hg] 74 mm[Hg] [facility] ([facility]) Systolic blood pressure 118 mm[Hg] 118 mm[Hg] M [facility] ([facility]) Patient Treatment Plan of Care Planned Activity Planned Date Details Description Data Source (s) Etonogestrel 68 MG Drug Implant [Nexplanon] 11/26/2019 12:00:00 AM EDT [facility] ([facility]) Levonorgestrel 1.5 MG Oral Tablet [Next Choice One Dos e] 11/26/2019 12:00:00 AM EDT [facility] Etonogestrel 68 MG Drug Implant [Nexplanon] [facility] ([facility])
[2020-08-14] MEDS ORDERED: KETOROLAC 60MG 2ML VIAL IM ONE (19:15)
[2020-08-14 20:15] VITALS: BP 133/79
== END 2020-08-14 20:20 | disposition home or self-care (01) ==
LOC: M ED 17:53
DX: G50.0 Trigeminal neuralgia (principal)
CPT/HCPCS: 36415; 84702; 96372; 99283; J1885

== ENCOUNTER → 2020-08-31 | Outpatient (CLI) | payer OTHER ==
[~2020-08-31] MED LIST changes: +OXCA300T14
== END ==
LOC: M LAB 12:41
PROVIDERS: ATTEND Physician Assistant
DX: Z32.02 Encounter for pregnancy test, result negative (principal); N76.0 Acute vaginitis